=== PATIENT | female | born 1950 | race Caucasian/White ===

== ENCOUNTER → 2017-10-26 09:20 | Outpatient (CLI) | payer MEDICARE, OTHER, SELFPAY ==
--- NOTE | 2017-10-26 09:40 | BI_ITS ---
MAMMOGRAPHY - BILATERAL SCREENING REASON FOR EXAM: Female, 67 years old. Routine annual screening examination. PERTINENT HISTORY: Non-contributory. TECHNIQUE: Digital bilateral breast patricio (3D mammographic acquisition) in the CC and MLO projections. 2-D mediolateral oblique (MLO) and craniocaudad (CC) views of both breasts were obtained. CAD: Full Field Digital Mammography with Computer Added Detection was performed. COMPARISON: Comparison is made with prior study dated July 26, 2016 and December 02, 2014. FINDINGS: Breast Composition: There are scattered areas of fibroglandular density. There are no dominant masses or suspicious calcifications. No other significant abnormalities are identified. There has been no significant change since the prior study. BI/SCREENING MAMM (CAD), BILAT IMPRESSION: Stable bilateral screening mammogram. Yearly follow-up mammogram recommended. (A) ASSESSMENT CATEGORY: BIRADS Category 1: Negative. A letter regarding these results will be sent to the patient by the facility within 30 days. Approximately 10% of breast cancers are not detected by mammography. A normal mammogram should not delay biopsy of a clinically suspicious abnormality. [id number] Electronically Signed: Derrick Parmar MD at 8:49 EDT Tel [phone], Service support ,
== END ==
PROVIDERS: Family Provider Internal Medicine; PCP Internal Medicine; Visit Provider Internal Medicine
DX: Z12.31 Encounter for screening mammogram for malignant neoplasm of breast (principal)
CPT/HCPCS: 77063; 77067

== ENCOUNTER → 2018-10-31 15:08 | Outpatient (CLI) | payer MEDICARE, SELFPAY ==
--- NOTE | 2018-10-31 15:16 | BI_ITS ---
MAMMOGRAPHY - BILATERAL SCREENING REASON FOR EXAM: Female, 68 years old. Routine annual screening examination. PERTINENT HISTORY: Non-contributory. TECHNIQUE: Digital bilateral breast yolanda (3D mammographic acquisition) in the CC and MLO projections. 2-D mediolateral oblique (MLO) and craniocaudad (CC) views of both breasts were obtained. CAD: Full Field Digital Mammography with Computer Added Detection was performed. COMPARISON: Comparison is made with prior study dated October 26, 2017 and July 26, 2016. FINDINGS: Breast Composition: There are scattered areas of fibroglandular density. There are no dominant masses or suspicious calcifications. No other significant abnormalities are identified. There has been no significant change since the prior study. BI/SCREEN MAMM (CAD) W/YOLANDA BILAT IMPRESSION: Stable bilateral screening mammogram. Yearly follow-up mammogram recommended. (A) ASSESSMENT CATEGORY: BIRADS Category 1: Negative. A letter regarding these results will be sent to the patient by the facility within 30 days. Approximately 10% of breast cancers are not detected by mammography. A normal mammogram should not delay biopsy of a clinically suspicious abnormality. [id number] Electronically Signed: Derrick Parmar, at 8:12 EDT , Service support ,
== END ==
PROVIDERS: Family Provider Internal Medicine; PCP Internal Medicine; Referring Provider Internal Medicine; Visit Provider Internal Medicine
DX: Z12.31 Encounter for screening mammogram for malignant neoplasm of breast (principal)
CPT/HCPCS: 77063; 77067

== ENCOUNTER → 2018-12-11 | Outpatient (CLI) | payer MEDICARE, SELFPAY ==
--- NOTE | 2018-12-11 09:02 | BD_ITS ---
STUDY: DUAL ENERGY X-RAY ABSORPTIOMETRY / DXA REASON FOR EXAM: Female, 68 years old. Early menopause. No loss of height. TECHNIQUE: Bone Mineral Density (BMD) measurements of lumbar spine and bilateral hips were obtained. COMPARISON: Comparison is made with prior examination dated July 26, 2016. FINDINGS: Lumbar Spine (L1-L4): g/cm2 (1.278) / T-score (0.8) / Z-score (2.4) Findings are suggestive of normal bone density with a low fracture risk. Left Femur Total: g/cm2 (1.039) / T-score (0.2) / Z-score (1.5) Left Femoral Neck: g/cm2 (0.894) / T-score (-1.0) / Z-score (0.5) Right Femur Total: g/cm2 (1.094) / T-score (0.7) / Z-score (2.0) Right Femoral Neck: g/cm2 (1.016) / T-score (-0.2) / Z-score (1.4) The T-Scores on the most recent prior examination were: Lumbar Spine (L1-L4): There has been worsening of bone density since the previous examination. Left Femur Total: which represents a worsening of 4.4%. Right Femur Total: which represents a worsening of 1.5%. BD/Dexa Bone Density Study IMPRESSION: The patient is considered normal as outlined below according to World [employer] Organization (WHO) criteria with a low fracture risk. There has been worsening of bone density since the previous examination. Reference Information: The T-score is the number of standard deviations above or below the standard which is normal for young adults at their peak bone mineral density. The World Health Organization (WHO) interprets the T-scores as follows: Above -1 Normal bone density Between -1 and -2.5 Osteopenia Equal to / or below -2.5 Osteoporosis As a practical clinical guideline, osteopenia may be graded as follows: Mild -1 through -1.5 Moderate -1.6 through -2.0 Severe -2.1 through -2.4 The Z-score is the number of standard deviations above or below age-matched controls. A Z-score of less than -1.5 would be considered abnormal. References: 1. NIH Osteoporosis and Related Bone Diseases http://www.osteo.org 2. International Society for Clinical Densitometry http://www.iscd.org 3. National Osteoporosis Foundation http://www.nof.org Electronically Signed: Derrick Parmar, at 10:39 EDT , Service support ,
== END | disposition home or self-care (01) ==
LOC: OPBD 08:58
PROVIDERS: Family Provider Internal Medicine; PCP Internal Medicine; Referring Provider Internal Medicine; Visit Provider Internal Medicine
DX: Z78.0 Asymptomatic menopausal state (principal)
CPT/HCPCS: 77080

== ENCOUNTER → 2019-04-29 08:05 | Outpatient (CLI) | payer MEDICARE, SELFPAY ==
--- NOTE | 2019-04-29 08:08 | CDU_ITS ---
Reason For Study: Hollenhorst plaque rt eye Rt. Velocities/BP Lt. Velocities/BP Prox CCA 57.9/12.6 cm/sec. Prox CCA 64.8/14.2 cm/sec. Mid CCA 66.4/15.4 cm/sec. Mid CCA 48.2/15.1 cm/sec. Dist CCA 47.5/16.3 cm/sec. Dist CCA 42.1/15.1 cm/sec. Prox ICA 52.2/18.2 cm/sec. Prox ICA 89.1/30.5 cm/sec. Mid ICA 79.4/32.2 cm/sec. Mid ICA 78.3/28.9 cm/sec. Dist ICA 73.9/24.5 cm/sec. Dist ICA 117.4/33.4 cm/sec. Rt. ICA/CCA = 1.4. Lt. ICA/CCA = 2.4. Prox ECA 64.5/8.8 cm/sec. Prox ECA 64.8/7.2 cm/sec. Rt. Vert. 39.8/11.2 cm/sec. Lt. Vert. 80.2/23.7 cm/sec. Right Extracranial There is homogeneous, smooth atherosclerotic plaque noted in the right common carotid artery. There is heterogeneous, irregular atherosclerotic plaque noted in the right internal carotid artery. There is intimal thickening but no significant atherosclerotic plaque noted in the right external carotid artery. Antegrade flow is noted in the right vertebral artery. Left Extracranial There is homogeneous, smooth atherosclerotic plaque noted in the left common carotid artery. There is homogeneous, smooth atherosclerotic plaque noted in the left internal carotid artery. There is intimal thickening but no significant atherosclerotic plaque noted in the left external carotid artery. Antegrade flow is noted in the left vertebral artery. Procedure Carotid Duplex [id number]. Exam performed in department. Interpretation Summary Mild (<50%) stenosis right extracranial internal carotid. Mild (<50%) stenosis left extracranial internal carotid. Flow within the vertebral arteries is antegrade bilaterally. Ordering Physician: Aaron Summers Referring Physician: Marisela Minaya M.D. Performed By: Josseline Green RVT
== END ==
PROVIDERS: PCP Internal Medicine; Referring Provider Ophthalmology; Visit Provider Ophthalmology
DX: H34.211 Partial retinal artery occlusion, right eye (principal)
CPT/HCPCS: 93880

== ENCOUNTER → 2020-01-21 15:23 | Outpatient (CLI) | payer MEDICARE, SELFPAY ==
--- NOTE | 2020-01-21 15:26 | BI_ITS ---
MAMMOGRAPHY - BILATERAL SCREENING REASON FOR EXAM: Female, 69 years old. Routine annual screening examination. PERTINENT HISTORY: Non-contributory. TECHNIQUE: Digital bilateral breast yolanda (3D mammographic acquisition) in the CC and MLO projections. 2-D mediolateral oblique (MLO) and craniocaudad (CC) views of both breasts were obtained. CAD: Full Field Digital Mammography with Computer Added Detection was performed. COMPARISON: Comparison is made with prior study dated 10/31/2018 and 10/26/2017. FINDINGS: Breast Composition: There are scattered areas of fibroglandular density. There are no dominant masses or suspicious calcifications. No other significant abnormalities are identified. There has been no significant change since the prior study. BI/SCREEN MAMM (CAD) W/YOLANDA BILAT IMPRESSION: Stable bilateral screening mammogram. Yearly follow-up mammogram recommended. (A) ASSESSMENT CATEGORY: BIRADS Category 1: Negative. A letter regarding these results will be sent to the patient by the facility within 30 days. Approximately 10% of breast cancers are not detected by mammography. A normal mammogram should not delay biopsy of a clinically suspicious abnormality. [id number] Electronically Signed: Derrick Parmar, at 8:25 EST , Service support ,
== END ==
PROVIDERS: PCP Internal Medicine; Referring Provider Internal Medicine; Visit Provider Internal Medicine
DX: Z12.31 Encounter for screening mammogram for malignant neoplasm of breast (principal); Z78.0 Asymptomatic menopausal state
CPT/HCPCS: 77063; 77067

== ENCOUNTER → 2020-06-23 10:48 | Outpatient (CLI) | payer MEDICARE, SELFPAY ==
--- NOTE | 2020-06-23 11:01 | ECHOCS_ITS ---
Reason For Study: CHEST PRESSURE Procedure This was a 2D Doppler, Color Flow transthoracic echocardiogram. The study was technically difficult. Contrast injection was performed. Exam performed in department. Left Ventricle Normal LV size. Severe global left ventricular systolic dysfunction. The estimated ejection fraction is 25 %. Right Ventricle Normal RV size. Normal systolic function. Atria The left atrium is mildly enlarged. Normal right atrium. No doppler evidence for ASD. Mitral Valve There is moderate mitral annular calcification. Extension the mitral annular calcification on the base of the posterior mitral valve leaflet. Mild (1+) mitral valve insufficiency. Tricuspid Valve Normal tricuspid valve. Trivial tricuspid valve insufficiency. Right ventricular systolic pressure estimated to be 44 mmHg. Aortic Valve Trisinus/trileaflet aortic valve. Mild focal aortic valve calcification. Trivial aortic valve insufficiency. Pulmonic Valve The pulmonic valve is not well visualized. Great Vessels Normal sized aortic root. Pericardium/Pleural Trivial pericardial effusion. There are no echocardiographic indications of cardiac tamponade. Medication Diluted definity 4ml given slow IV push to enhance endocardial definition. MMode/2D Measurements & Calculations LVIDd: 5.4 cm IVSd: 0.92 cm Ao root diam: 3.2 cm LVIDs: 4.4 cm LVPWd: 0.98 cm RVDd: 3.5 cm FS: 19.8 % LAV(MOD-bp): 54.1 ml LVAd ap4: 32.0 cm2 SV(MOD-sp4): 26.2 ml LAV(MOD-bp) Indexed: 29.6 ml/m2 LVLd ap4: 7.4 cm LAV(MOD-sp2): 62.5 ml EDV(MOD-sp4): 114.1 ml LAV(MOD-sp4): 43.7 ml EDV(sp4-el): 117.9 ml LVAs ap4: 27.8 cm2 LVLs ap4: 7.1 cm ESV(MOD-sp4): 87.9 ml ESV(sp4-el): 92.0 ml EF(MOD-sp4): 23.0 % EF(sp4-el): 21.9 % SV(sp4-el): 25.8 ml LA A4 area: 16.2 cm2 LA dimension(2D): 4.0 cm RA A4 area: 12.3 cm2 Time Measurements MV dec time: 0.17 sec Doppler Measurements & Calculations MV E max hardik: 134.4 cm/sec Lat Peak E' Hardik: 8.1 cm/sec Med Peak E' Hardik: 4.6 cm/sec MV A max hardik: 80.8 cm/sec E/E' lat: 16.6 E/E' med: 29.0 MV E/A: 1.7 Ao V2 max: 146.5 cm/sec AI max hardik: 394.2 cm/sec LV V1 max: 94.2 cm/sec Ao max P.6 mmHg AI max P.2 mmHg LV V1 max P.5 mmHg AI dec slope: 291.1 cm/sec2 AI P1/2t: 396.7 msec PA V2 max: 106.8 cm/sec TR max hardik: 320.7 cm/sec TR max P.1 mmHg ECHO/Echo Complete W/ Contrast Interpretation Summary The study was technically difficult. Contrast injection was performed. Severe global left ventricular systolic dysfunction. The estimated ejection fraction is 25 %. The left atrium is mildly enlarged. There is moderate mitral annular calcification. Extension the mitral annular calcification on the base of the posterior mitral valve leaflet. Mild (1+) mitral valve insufficiency. Trivial tricuspid valve insufficiency. Mild focal aortic valve calcification. Trivial aortic valve insufficiency. Trivial pericardial effusion. There are no echocardiographic indications of cardiac tamponade. Right ventricular systolic pressure estimated to be 44 mmHg. Transmitral diastolic flow velocities suggest diastolic dysfunction (pseudonorm al pattern). Ordering Physician: Marisela Minaya Referring Physician: Marisela Minaya Performed By: Suellen Minor RDCS
--- NOTE | 2020-06-23 12:47 | STRESSREP ---
Stress Test Report Date: 06-23-2020 Procedure: Pharmacologic stress nuclear imaging study Indications: Chest pain; shortness of breath/dyspnea on exertion Consent: Per the patient Procedure: The patient underwent pharmacologic (Regadenoson 0.4mg ) evaluation with a peak heart rate of 90 beats per minute (59%predicted maximal heart rate) and a peak blood pressure of 140/64 mmHg. The baseline ECG demonstrated sinus rhythm; bundle branch block. The peak pharmacologic ECG demonstrated no obvious ECG changes. There was a rare PAC/PVC in recovery. There was no complaint of chest discomfort during pharmacologic infusion or recovery. The examination was discontinued secondary to completion of protocol. Impression: 1. Pharmacologic (Regadenoson) evaluation 2. Peak pharmacologic ECG with no obvious ECG changes. 3. There were no cardiac dysrhythmias pretest, during pharmacologic infusion, or recovery. 4. Nuclear images pending Myocardial perfusion imaging study: Technique: The patient was injected with 14.6 millicuries of technetium 99m Cardiolite and subsequently rest SPECT Cardiolite nuclear imaging was obtained in the horizontal long, vertical long, and short axis views. The patient underwent pharmacologic (Regadenoson) evaluation with a peak heart rate of 90 beats per minute (59% percent predicted maximal heart rate) and a peak blood pressure of 140/64 mmHg. The patient was injected with 44.6 millicuries of technetium 99m Cardiolite and subsequently stress SPECT Cardiolite nuclear imaging was obtained in the horizontal long, vertical long, and short axis views. A gated Cardiolite study at peak stress was obtained. Interpretation: Rest and stress SPECT Cardiolite nuclear imaging status post realignment, normalization, and attenuation correction demonstrate the appearance of diminished myocardial perfusion/tracer uptake in portions of the distal anterior, distal anteroseptal, anteroapical, and septal apical segments which appear to be somewhat more prominent following stress of the posterior rest. There is diminished end systolic thickening and brightening. The gated Cardiolite study demonstrates diminished myocardial thickening and inward wall motion. The reported LVEF is 37%. Impression: 1. Rest and stress SPECT her nuclear imaging demonstrate myocardial perfusion changes potentially compatible with an area of previous myocardial injury/infarction with post-rest myocardial perfusion changes suggestive of juan david-infarct related myocardial ischemia involving portions of the distal anterior, distal anteroseptal, anteroapical, and septal apical segments. 2. The gated Cardiolite study reports an LVEF of 37%. This note was generated with [employer] software. It may contain incorrect words, spelling, and punctuation that were not noted in checking the note before signing.
== END ==
PROVIDERS: PCP Internal Medicine; Referring Provider Internal Medicine; Visit Provider Internal Medicine
DX: R07.89 Other chest pain (principal)
CPT/HCPCS: 78452; 93017; 93306; A9500; Q9957; A4216; C8929; J2785

== ENCOUNTER → 2020-08-20 12:36 | Outpatient (CLI) | payer MEDICARE, SELFPAY ==
[2020-08-20 11:31] VITALS: BMI 35.9
--- NOTE | 2020-08-20 12:40 | RAD_ITS ---
STUDY: X-RAY CHEST REASON FOR EXAM: Female, 70 years old. Coronary artery disease. TECHNIQUE: PA and lateral views of the chest. COMPARISON: None. FINDINGS: The lungs are clear and expanded. There is no demonstrated pleural abnormality. Normal size heart. Normal mediastinum and mahad. Normal visualized pulmonary arteries. Normal visualized aortic arch and descending thoracic aorta. There are diffuse degenerative changes of the visualized thoracic spine. Prior rotator cuff surgery on the right side. There is no demonstrated abnormality of the visualized soft tissue structures of the upper abdomen. RAD/Chest PA and Lateral IMPRESSION: No acute abnormality is seen. Electronically Signed: Derrick Parmar MD at 15:12 EDT , Service support ,
[2020-08-20 13:39] LABS: Absolute Lymphocyte Count 1.39 X10^3/uL (0.83-4.51); Absolute Neutrophil Count 5.8 X10^3/uL (2.0-7.7); Basophil# 0.04 X10^3/uL; Basophil% 0.5 % (0-1); Eosinophil# 0.16 X10^3/uL; Hemoglobin 13.2 g/dL (12.0-15.0); Lymphocyte # 1.39 X10^3/ul (0.83-4.51); Lymphocyte % 17.7 % (19-41); Mean Corp Hgb Conc 33.8 g/dL (32-36); Mean Corpuscular Hgb 29.4 pg (27.0-32.0); Mean Corpuscular Volume 86.9 fL (81-99); Mean Platelet Vol. 12.6 fl (6.2-12.0); Monocyte# 0.45 X10^3/uL; Monocyte% 5.7 % (0-10); NRBC Flagged by Analyzer 0 % (0-5); Neutrophil # 5.77 X10^3/uL (2.7-7.7); Neutrophil % 73.6 % (47-70); Platelet Count 174 K/mm3 (150-450); RBC Distribution Width CV 12.9 % (11.6-14.6); RBC Distribution Width SD 40.9 fl (35.1-43.9); Red Blood Count 4.49 M/mm3 (4.2-5.4); White Blood Count 7.9 K/mm3 (4.4-11.0)
[2020-08-20 13:53] LABS: International Normalized Ratio 1.1; Partial Thromboplast Time 31.2 Seconds (24.1-36.2); Prothrombin Time (Protime)PT. 13.2 SECONDS (11.7-14.9)
[2020-08-20 14:01] LABS: Anion Gap 4 (5-15); BUN 13 mg/dL (7-18); BUN/Creat Ratio 14.9 RATIO (10-20); Calcium,Total 9.1 mg/dL (8.5-10.1); Chloride 104 mmol/L (98-107); Creatinine, Serum 0.88 mg/dL (0.55-1.02); EST Glomerular Filtration Rate 68 mL/min (>60); Est Glom Filt Rate - Afr Amer 83 mL/min (>60); Glucose 288 mg/dL (74-106); Potassium 3.9 mmol/L (3.5-5.1); Sodium Level 136 mmol/L (136-145)
[2020-08-20 14:02] LABS: BNP,B-Type NATRIURETIC PEPTIDE 159.1 pg/mL (0-100)
== END ==
PROVIDERS: PCP Internal Medicine; Referring Provider Internal Medicine Cardiovascular Disease; Visit Provider Internal Medicine Cardiovascular Disease
DX: I42.9 Cardiomyopathy, unspecified (principal); E78.00 Pure hypercholesterolemia, unspecified; I10 Essential (primary) hypertension; I44.7 Left bundle-branch block, unspecified; R93.1 Abnormal findings on diagnostic imaging of heart and coronary circulation; R94.39 Abnormal result of other cardiovascular function study
CPT/HCPCS: 36415; 71046; 80048; 83880; 85025; 85610; 85730

== ENCOUNTER 2020-09-15 12:40 | Inpatient (IN) | payer MEDICARE, SELFPAY ==
[2020-08-20 11:31] VITALS: BMI 35.9
--- NOTE | 2020-09-12 10:59 | HP.PCM_ITS ---
History and Physical Date of Admission: 09/15/20 [facility] [address] [place] [address] [phone] OFFICE VISITDate of Service: 08/20/20 MR#:[id number]:[id number]: KANA ORTIZ #:[id number] Provider:Dr. Colt Zimmerman, VASYLge/Sex: 70/F Loca tion:BMS.BEATRICEtatus:Signed HPI HPI History of Present Illness Surgical H&P: Yes Details: This is a 70-year-old white female who presents today for outpatient cardiovascular consultation based upon concerns of shortness of breath/dyspnea, and abnormal ECG with a left bundle branch block pattern, and abnormal transthoracic echocardiogram appearing compatible with an underlying cardiomyopathy, and an abnormal pharmacologic stress nuclear imaging study superimposed upon a history of hyperlipidemia, hypertension, and diabetes mellitus. She notes that in January 2020 she started sensing concerns of shortness of breath and dyspnea. Over time this has become somewhat more prominent for her affecting her at times at rest, with exertion, and at night leading her to sleep propped up . She has not necessarily had ongoing chest discomfort. There is been no obvious palpitations, near-syncope or syncope. She does states she has had waxing and waning peripheral pitting edema. She has undergone noninvasive evaluation. Today she had an ECG which demonstrated sinus rhythm with a left bundle branch block pattern. She had a transthoracic echocardiogram performed and a pharmacologic stress nuclear imaging study performed. The results are as noted below. She states she has been placed on medical management. Her medicines have been adjusted somewhat over time. She has been referred for further cardiovascular evaluation. Intake Vital Signs 08/20/20 11:31 Height 5 ft Weight: 184 lb 5 oz BMI 35.9 BP 154/80 H Blood Pressure Location Lt brachial Position Sitting Respiration 18 Pulse 80 Pulse Source Auscultation Intake Visit Reasons: Abn stress/Echo/Ref. [employer] Leveler Required: No Accompanied by: Self Allergies No Known Allergies Allergy (Verified 08/20/20 11:31) Medications atenolol 25 mg tablet 25 mg PO DAILY 07/31/20 [History Confirmed 08/20/20] glimepiride 4 mg tablet 4 mg PO BID tab 07/31/20 [History Confirmed 08/20/20] levothyroxine 25 mcg tablet 25 mcg PO DAILY 07/31/20 [History Confirmed 08/20/20] metformin 1,000 mg tablet 1,000 mg PO DAILY 07/31/20 [History Confirmed 08/20/20] nitroglycerin 0.1 mg/hr transdermal 24 hour patch 1 patch TRANSDERMAL Q24H 07/31/20 [History Confirmed 08/20/20] pravastatin 80 mg tablet 80 mg PO QHS 07/31/20 [History Confirmed 08/20/20] aspirin 81 mg chewable tablet 81 mg PO DAILY #1 tab 08/20/20 [Rx Confirmed ] carvedilol 3.125 mg tablet 3.125 mg PO BID #60 tab 08/20/20 [Rx Confirmed 08/20/20] furosemide 20 mg tablet 20 mg PO DAILY #30 tab 08/20/20 [Rx Confirmed 08/20/20] lisinopril 10 mg tablet 10 mg PO BID tab 08/20/20 [History Confirmed 08/20/20] potassium chloride 20 mEq tablet,extended release 20 meq PO DAILY #30 tab 08/20/20 [Rx Confirmed 08/20/20] [facility] Medical History (Updated 08/20/20 @ 12:[address] Colt Zimmerman MD) Abnormal echocardiogram Abnormal stress test Cardiomyopathy Decreased cardiac ejection fraction Dyspnea Essential hypertension GERD (gastroesophageal reflux disease) Hypothyroidism LBBB (left bundle branch block) Pure hypercholesterolemia Type 2 diabetes mellitus Surgical History H/O total hysterectomy with bilateral salpingo-oophorectomy (BSO) History of cholecystectomy History of repair of right rotator cuff Family History Mother CVA (cerebral vascular accident), Onset Age: 67 Brother Myocardial infarction, Onset Age: 50 Father Cancer, Onset Age: 57 Social History Smoking Status: Former smoker alcohol intake: current details: occasional substance use type: does not use caffeine: Yes Type: carbonated beverages Number of servings: 1 and coffee Number of servings: 4 ROS Const Const: Positive for fatigue (tired alot); Negative for weakness, frequent falls, excessive sweating, weight gain or weight loss Eyes Eyes: Negative for transient loss of vision, blurry vision or change in vision ENT ENT: Positive for balance problems (slight); Negative for dizziness Cardio Chest Pain: No Palpitations: No Edema: None Muscle aches with walking: None Resp Respiratory: Positive for SOB with activity (new; started in January) and Cough (dry); Negative for SOB at rest GI GI: Negative vomiting or vomiting blood/hematemesis : Negative for hematuria Musc Musc: Positive for joint pain (bilat knees, rt hip) and balance problems (slight); Negative for muscle aches/ myalgia or muscle weakness Skin Skin: Negative non-healing lesions or rash Neuro Neuro: Positive for lightheadedness (random) and near syncope; Negative for dizziness, orthostatic symptoms, frequent falls, weakness or blurry vision Baljeet Hematologic/Lymphatic: Negative for easy bleeding Endo Endo: Positive for fatigue (tired alot); Negative for excessive sweating Psych Psych: Negative for anxiety or depression Allergy Allergy/Immunology: Negative for hives and Negative for rash Cardiology Exam Const Appearance: cooperative, healthy appearing, comfortable, no acute distress, well developed and well groomed Nutritional Appearance: obese Orientation: alert, awake and oriented x3 Head Head: normal to inspection and normocephalic Ears: hearing grossly normal bilaterally Nose: external nose normal Face and Sinus: face symmetric Eyes Eyelids: eyelids normal Conjunctivae: conjunctivae normal Pupils: PERRL EOM: EOM intact bilaterally Neck Neck: normal visual inspection and full ROM Carotids: normal carotid upstroke Chest Chest inspection: normal inspection of the chest, symmetric chest movement and normal respiratory effort Auscultation: Bilateral: Clear to Auscultation Cardio Palpation: normal PMI Rate: regular rate Rhythm: regular rhythm Heart sounds: S1 normal and paradoxically split S2 GI GI: normal to inspection, soft, bowel sounds present and obese Neuro General: patient alert, patient awake, patient oriented x3 and moves all extremities Skin Skin: no rashes or lesions noted Extremities Pulses: Normal: Right Radial Pulse and Left Radial Pulse Lower Extremity Edema: None: Bilateral Psych Psychological: normal affect Assessment and Plan Assessment and Plan (1) Abnormal echocardiogram: Status: Acute Orders: Orders: 12 Lead EKG performed by [facility] Today Left Heart Cath/COR/LV Percut Today Basic Metabolic Profile (BMP) Today Partial Thromboplast Time Today Prothrombin Time w/INR Today CBC W/Diff, Automated Today Chest PA and Lateral Today Plan - Dr. Colt Zimmerman MD: The patient does have an abnormal transthoracic echocardiogram appearing compatible with an underlying cardiomyopathy. At the present time she will continue medical therapy with adjustment of her medications. She will initiate carvedilol therapy in place of her atenolol therapy. She will be placed on furosemide with potassium supplement. She will increase her JESSICA inhibitor therapy/lisinopril to twice daily. Based upon her symptoms and other objective findings it was felt reasonable that she undergo further evaluation with diagnostic cardiac catheterization to evaluate for any CAD contributing to these findings. The procedure and risk were discussed with her. She was agreeable to this approach. (2) Abnormal stress test: Status: Acute Orders: Orders: 12 Lead EKG performed by [facility] Today Left Heart Cath/COR/LV Percut Today Basic Metabolic Profile (BMP) Today Partial Thromboplast Time Today Prothrombin Time w/INR Today CBC W/Diff, Automated Today Chest PA and Lateral Today Plan - Dr. Colt Zimmerman MD: She does have an abnormal pharmacologic stress nuclear imaging study. It has raised concerns about possible previous AR with juan david-AR related myocardial ischemia. It also noted diminished LVEF. At the present time she will continue medical therapy as noted above with the addition of aspirin 81 mg p.o. daily. She will proceed with further evaluation with diagnostic cardiac catheterization. (3) LBBB (left bundle branch block): Status: Acute Orders: Orders: Left Heart Cath/COR/LV Percut Today Basic Metabolic Profile (BMP) Today Partial Thromboplast Time Today Prothrombin Time w/INR Today CBC W/Diff, Automated Today Chest PA and Lateral Today Plan - Dr. Colt Zimmerman MD: She does have a left bundle branch block. This could be compatible with an underlying cardiomyopathy. However could also be compatible with a history of underlying CAD, etc. Thus at the present time she will continue medical management and follow-up as noted above. (4) Cardiomyopathy: Status: Acute Orders: Orders: Left Heart Cath/COR/LV Percut Today Basic Metabolic Profile (BMP) Today Partial Thromboplast Time Today Prothrombin Time w/INR Today CBC W/Diff, Automated Today Chest PA and Lateral Today BNP,B-Type NATRIURETIC PEPTIDE Today Plan - Dr. Colt Zimmerman MD: Again she has findings compatible with an underlying cardiomyopathy. It is unclear at this time whether this is CAD related or non-CAD related. She does not recall any definitive illness prior to the development of her symptoms. She does have cardiovascular risks which do include diabetes mellitus. Thus she will continue medical management and further evaluation as noted. (5) Pure hypercholesterolemia: Status: Acute Orders: Orders: 12 Lead EKG performed by [facility] Today Left Heart Cath/COR/LV Percut Today Basic Metabolic Profile (BMP) Today Partial Thromboplast Time Today Prothrombin Time w/INR Today CBC W/Diff, Automated Today Chest PA and Lateral Today Plan - Dr. Colt Zimmerman MD: She will continue lipid-lowering therapy. (6) Essential hypertension: Status: Acute Orders: Orders: 12 Lead EKG performed by [facility] Today Left Heart Cath/COR/LV Percut Today Basic Metabolic Profile (BMP) Today Partial Thromboplast Time Today Prothrombin Time w/INR Today CBC W/Diff, Automated Today Chest PA and Lateral Today Plan - Dr. Colt Zimmerman MD: She will need to monitor her blood pressure with adjustment of medications. (7) Dyspnea: Status: Acute Plan - Dr. Colt Zimmerman MD: Again she has shortness of breath/dyspnea which has occurred both at rest and with exertion. This may be secondary to her aforementioned findings superimposed upon concerns of her weight. At the present time she will continue medical adjustment and further evaluation as noted. Plan Details Other Medications: New: carvedilol (Coreg) must administer with a meal/food 3.125 mg PO BID 60 tabs 3RF furosemide 20 mg PO DAILY 30 tabs 3RF potassium chloride ER 20 mEq PO DAILY 30 tabs 3RF aspirin 81 mg PO DAILY 1 TAB 0RF On Hold: atenolol Hold Comment: Order Changed 25 mg PO DAILY Additional Comments: [place] with her and she was agreeable to this approach. Thank you for allowing me to participate in the care of your patient. Please don't hesitate to call if any issues arise. This note was generated using a voice recognition system and there may be incorrect words, spelling or punctuation that were not noted when reviewing the office note prior to saving. Follow Up: 3 Months (PFM) COVID (Procedure Consent) Procedure Criteria Procedure Criteria: Yes Elective The surgeon/proceduralist and patient have discussed in detail the risk of exposure to and/or potential harm posed by the COVID-19 virus with having a surgery/procedure at this time versus the risk of delaying the surgery/procedure. It is not possible to know either the risk of delaying the surgery or procedure or chance of getting an infection with perfect accuracy, but a joint decision was made between the patient and the surgeon/proceduralist to proceed at this time with the scheduled surgery/procedure as indicated on the consent form. Coding Level of Care Code Off vis,new,level 5 Diagnoses Abnormal echocardiogram R93.1 Abnormal stress test R94.39 LBBB (left bundle branch block) I44.7 Cardiomyopathy I42.9 Pure hypercholesterolemia E78.00 Essential hypertension I10 Dyspnea R06.00 Coding Level of Care Code Off vis,new,level 5 Diagnoses Abnormal echocardiogram R93.1 Abnormal stress test R94.39 LBBB (left bundle branch block) I44.7 Cardiomyopathy I42.9 Pure hypercholesterolemia E78.00 Essential hypertension I10 Dyspnea R06.00 Supplemental Info Supplemental Information Transthoracic echocardiogram: 06-23-2020 Interpretation Summary The study was technically difficult. Contrast injection was performed. Severe global left ventricular systolic dysfunction. The estimated ejection fraction is 25 %. The left atrium is mildly enlarged. There is moderate mitral annular calcification. Extension the mitral annular calcification on the base of the posterior mitral valve leaflet. Mild (1+) mitral valve insufficiency. Trivial tricuspid valve insufficiency. Mild focal aortic valve calcification. Trivial aortic valve insufficiency. Trivial pericardial effusion. There are no echocardiographic indications of cardiac tamponade. Right ventricular systolic pressure estimated to be 44 mmHg. Transmitral diastolic flow velocities suggest diastolic dysfunction (pseudonormal pattern). Stress Test Report Date: 06-23-2020 Procedure: Pharmacologic stress nuclear imaging study Indications: Chest pain; shortness of breath/dyspnea on exertion Consent: Per the patient Procedure: The patient underwent pharmacologic (Regadenoson 0.4mg ) evaluation with a peak heart rate of 90 beats per minute (59%predicted maximal heart rate) and a peak blood pressure of 140/64 mmHg. The baseline ECG demonstrated sinus rhythm; bundle branch block. The peak pharmacologic ECG demonstrated no obvious ECG changes. There was a rare PAC/PVC in recovery. There was no complaint of chest discomfort during pharmacologic infusion or recovery. The examination was discontinued secondary to completion of protocol. Impression: 1. Pharmacologic (Regadenoson) evaluation 2. Peak pharmacologic ECG with no obvious ECG changes. 3. There were no cardiac dysrhythmias pretest, during pharmacologic infusion, or recovery. 4. Nuclear images pending Myocardial perfusion imaging study: Technique: The patient was injected with 14.6 millicuries of technetium 99m Cardiolite and subsequently rest SPECT Cardiolite nuclear imaging was obtained in the horizontal long, vertical long, and short axis views. The patient underwent pharmacologic (Regadenoson) evaluation with a peak heart rate of 90 beats per minute (59% percent predicted maximal heart rate) and a peak blood pressure of 140/64 mmHg. The patient was injected with 44.6 millicuries of technetium 99m Cardiolite and subsequently stress SPECT Cardiolite nuclear imaging was obtained in the horizontal long, vertical long, and short axis views. A gated Cardiolite study at peak stress was obtained. Interpretation: Rest and stress SPECT Cardiolite nuclear imaging status post realignment, normalization, and attenuation correction demonstrate the appearance of diminished myocardial perfusion/tracer uptake in portions of the distal anterior, distal anteroseptal, anteroapical, and septal apical segments which appear to be somewhat more prominent following stress of the posterior rest. There is diminished end systolic thickening and brightening. The gated Cardiolite study demonstrates diminished myocardial thickening and inward wall motion. The reported LVEF is 37%. Impression: 1. Rest and stress SPECT her nuclear imaging demonstrate myocardial perfusion changes potentially compatible with an area of previous myocardial injury/infarction with post-rest myocardial perfusion changes suggestive of juan david-infarct related myocardial ischemia involving portions of the distal anterior, distal anteroseptal, anteroapical, and septal apical segments. 2. The gated Cardiolite study reports an LVEF of 37%. Labs: No Data to Display Diagnostics: Electrocardiogram Echocardiogram Stress Test NM Stress Test Pulmonary: No Data to Display 08/20/20 1244<Electronically signed by Colt Zimmerman MD>Date Colt Zimmerman MD Cosigner Signature:Date (if applicable) CC: Dr. Marisela Marimar, DO ~ I have re-examined the patient. There are no clinical changes since date of exam.
[2020-09-14 08:02] VITALS: BMI 35.9
[2020-09-15] VITALS (36 sets, daily range): BP systolic 104–213; BP diastolic 50–118; PULSE 63–96; RESP 12–30; TEMP 36–36.6; O2SAT 85–100; BMI 37.7
--- NOTE | 2020-09-15 10:29 | PCI.CARDCATH ---
PCI Cardiac Cath Report PCI Report: Procedure performed; 1. Successful percutaneous core intervention/PCI of diffuse mid LAD 80% with predilatation and placement of drug-eluting stent Synergy 2.5 x 20 mm Postdilated with 2.5 x 15 mm NC Emerge balloon and achievement of excellent result With reduction of stenosis from 80% to 0% in the mid LAD and maintenance of JENARO-3 flow. 2. Placement of TR band to right radial artery arteriotomy site. Preprocedure diagnosis; This is a 70-year-old patient she came for outpatient cardiovascular consultation and she had symptoms of shortness of breath and abnormal ECG with a left bundle branch block and abnormal transthoracic echocardiogram compatible his underlying cardiomyopathy and abnormal pharmacological stress nuclear imaging study with history of hyperlipidemia hypertension and diabetes mellitus she had symptoms mainly shortness of breath and dyspnea on exertion. The ECG demonstrated sinus rhythm with left bundle branch block and the transthoracic echocardiogram and pharmacological stress nuclear images did revealed severe LV systolic dysfunction. And she had abnormal nuclear stress test. The ejection fraction has been around 25%. Patient underwent cardiac catheterization today by her primary snow removal supervisor Dr. Zimmerman angiographic films reviewed and discussed in detail She has a lesion in the mid LAD which is diffuse atherosclerosis of around 80%. Rest of the coronary anatomy including the left and right showed nonobstructive atherosclerosis and the ventriculogram showed severe LV systolic dysfunction with segmental wall motion abnormality anterior and apical. Consent; Risk and benefit of procedure explained in detail to the patient elected to proceed informed consent obtained Interventional equipment and plan; 1. 6 Kyrgyz EBU guide catheter 2. 0.14 run-through guidewire 180 cm 3. 2 mm x 50 mm image PTCA dilatation balloon 4. 2.5 x 20 mm Synergy drug-eluting stent 5. 2.5 x 50 mm NC Emerge balloon Monorail system Procedure in detail; From the right radial artery approach will proceed with a 6 Kyrgyz EBU guide catheter advanced under fluoroscopic guidance and cannulated the left main coronary artery Then will proceed with the guidewire which is a 0.14 run-through guidewire across the lesion in the mid LAD place a wire distal to the lesion, and then we proceed with balloon dilatation using 2 mm x 50 mm balloon followed by placement of drug-eluting stent and postdilatation using NC balloon and achievement of excellent result with no dissection proximally or distally and maintenance of JENARO-3 flow with reduction of stenosis from 80% to 0%. Following this TR band applied to right radial artery area with no complication in the Property Claim Rep Patient was given a total of 9000 of heparin and ACT level was around 240 and she was given additional 2000 of heparin she was given 180 mg of Brilinta and she was given aspirin. Conclusion successful PCI of diffuse mid LAD as described with the achievement of 0% stenosis post PCI maintenance of JENARO-3 flow Recommendation and plan; 1. To continue on dual antiplatelet therapy/DAPT Brilinta/aspirin for 1 year number 2. Patient will continue for follow-up with the primary snow removal supervisor Dr. Elsie Michel MD,[facility] bus and rail operator
--- NOTE | 2020-09-15 10:45 | EKG12_ITS ---
Test Reason : AM EKG Blood Pressure : / mmHG Vent. Rate : 063 BPM Atrial Rate : 063 BPM P-R Int : 172 ms QRS Dur : 150 ms QT Int : 490 ms P-R-T Axes : 049 -27 154 degrees QTc Int : 501 ms Normal sinus rhythm Left bundle branch block Abnormal ECG Confirmed by AUSTYN KENNEDY, COLT ([id number]), features editor GERARD HAINES ([id number]) on 09/18/2020 9:03:07 AM Referred By: Colt Zaman Confirmed By:COLT ZAMAN MD
--- NOTE | 2020-09-15 11:40 | CL.D_ITS ---
Patient Name: KANA ORTIZ Study Date: 09/15/2020 Performing: Colt Zimmerman MD Ht: 60 inches 152 cm : 1950 Wt: 183.2 lbs 83 kg Age: 70 Gender: female BSA: 1.79 PROCEDURE(S) PERFORMED XY09-ECK/COR/LV [id number] W OR WO PTCA, SINGLE CORONARY ARTERY CLINICAL PROFILE AND INDICATIONS Indications: Suspected CAD Heart Failure: None Stress/Imaging Date: 06/23/2020tress Test with SPECT MPI: Positive Intermediate Risk Angina Classification Anginal Classification w/in 2 Weeks: CCS III CAD Presentations: Stable angina. CONCLUSIONS Elevated Left Ventricular End Diastolic Pressure Segmented LV systolic dysfunction- Moderate LVEF: by LV gram 30 % [place] Multivessel CAD RECOMMENDATIONS Risk factor modification Medical therapy Referred for immediate PCI Case discussed / reviewed with Dr. Michel of Interventional Cardiology DESCRIPTION OF PROCEDURE The patient arrived to the procedure lab. The risks and benefits of the procedure as well as a full d escription of our services here and current unavailability of surgical backup were fully explained to the patient and/or their significant other prior to the catheterization. The Timeout was completed, verifying the correct patient and procedure. The patient's procedural site was prepped and draped in the usual fashion. Local anesthetic was given subcutaneously to right radial region with Lidocaine 2% . Using a modified Seldinger technique, arterial access was obtained via the right radial artery, a 6 Fr sheath was inserted. Left Coronary Artery selective angiography was performed in multiple views u sing a 5 Fr. 4.0 Goldsmith catheter. Right Coronary Artery selective angiography was then performed in mu ltiple views using a 5 Fr. 4.0 Goldsmith catheter. Left Ventriculography was performed in SALAS projection using a 5 Fr. Pigtail catheter. LV to AO pullback pressures were then recorded.The arterial sheath was pulled and a TR Band was applied for hemostasis. Sheath flushed prior to removal, 13cc air inserted CORONARY ANGIOGRAPHY DOMINANCE: Right Dominant LEFT HEART ASSESSMENT Left Ventricular Ejection Fraction: by LV Gram 30 % Anterior Hypokinesis. Apical Hypokinesis Elevated Left Ventricular End Diastolic Pressure LVEDP: 38 mmHg LEFT MAIN: Angiographically normal LEFT ANTERIOR DESCENDING ARTERY: PROX LAD: Mild luminal irregularities MID LAD: diffuse: irregular: 85 % Stenosis CIRCUMFLEX ARTERY: OSTIAL CIRC: 25 % Stenosis PROX CIRC: eccentric: 25 % Stenosis RAMUS: Angiographically normal RIGHT CORONARY ARTERY: PROX RCA: Mild luminal irregularities AORTIC ROOT: Angiographically normal COMPLICATIONS No Complications PROCEDURE MEDICATIONS Fentanyl 50 mcg IV Versed 1 mg IV Oxygen: 2 L/min via nasal cannula Baby Aspirin (81mg) 1 Tabs PO 09/15/2020 08:15:52 Brilinta 180 mg PO @ 09/15/2020 09:52:29 Heparin given IA 09/15/2020 09:38:03 Heparin 6000 unit(s) IV 09/15/2020 09:57:14 Heparin 2000 unit(s) IV 09/15/2020 10:23:24 Nitro 200 mcg IC 09/15/2020 10:16:50 Verapamil 2.5mg, Ntg 100mcgs, 3000 units of Heparin given IA 09/15/2020 09:38:03 SUMMARY OF HEMODYNAMIC DATA Time AIR REST ECG 08:16:18 AO 161/77 (107) SA 09:39:36 LV 184/12, 37 09:44:57 LV 183/11, 38 09:45:03 LV 175/11, 36 09:45:45 LV 176/10, 36 09:45:51 LVp 179/9, 33 09:45:56 AOp 175/73 (111) 09:46:01 Signed By Colt Zimmerman MD On 09/15/2020 11:39:43 Colt Zimmerman MD
--- NOTE | 2020-09-15 12:04 | RAD_ITS ---
STUDY: X-RAY CHEST REASON FOR EXAM: Female, 70 years old. SOB TECHNIQUE: Single AP portable view of the chest. COMPARISON: 08/20/2020 FINDINGS: The lungs are clear and expanded. There is no demonstrated pleural abnormality. Normal size heart. Normal mediastinum and mahad. Normal visualized pulmonary arteries. Normal visualized aortic arch and descending thoracic aorta. Normal visualized thoracic spine. Normal visualized ribs, clavicles, and shoulders. There is no demonstrated abnormality of the visualized soft tissue structures of the upper abdomen. RAD/Chest 1 View (Portable) IMPRESSION: Normal x-ray examination of the chest. Electronically Signed: Mark Banegas MD at 12:59 EDT Tel , Service support ,
[2020-09-15] MEDS: Furosemide 40 MG/4 ML Vial IV ×2 (12:10→19:50)
[2020-09-15] MEDS: Morphine 2 MG/ML Syringe IV (12:20)
[2020-09-15] MEDS: 0.9% Saline Lock 10 ML Syringe IV (12:24)
--- NOTE | 2020-09-15 12:50 | NURSING ---
This RN called and spoke with patient's sister Annetta informing her of change of condition and move to ICU.
--- NOTE | 2020-09-15 12:52 | PCM.PN.CARD ---
Subjective Subjective The patient is status post diagnostic cardiac catheterization and subsequent LAD PCI. She returned to the PCU for continued post procedure evaluation care. She was noted to become short of breath and hypoxic with no ongoing chest discomfort. Her O2 saturation had declined. Her ECG demonstrated no acute ECG changes. Based on review of her case there was concerns that she had developed post procedure related CHF/flash pulmonary edema. She was evaluated by Dr. Michel who initiated further evaluation with chest x-ray as well as medical therapy with IV furosemide, IV nitroglycerin, IV morphine sulfate, and BiPAP therapy. She was subsequently quested to be placed in the ICU for continued evaluation care of her respiratory status. A consultation was placed to intensive care medicine/pulmonology for their assistance in her respiratory status. Objective Data Vital Signs: Vital Signs Temp Pulse Resp BP Pulse Ox 97.6 F L 96 30 H 142/75 H 98 09/15/20 10:50 09/15/20 12:30 09/15/20 12:30 09/15/20 12:30 09/15/20 12:30 Oxygen Flow Rate (L/min) 6 Oxygen Delivery Method Bi-pap Weight: 193 lb 3.2 oz Body Mass Index (BMI) 37.7 Lab / Micro Data Result Diagrams: 09/15/20 13:15 09/15/20 13:15 Cardiology Labs/Tests Rhythm: Sinus rhythm EKG: Sinus rhythm; LBBB ECHO: 06/23/2020 Interpretation Summary The study was technically difficult. Contrast injection was performed. Severe global left ventricular systolic dysfunction. The estimated ejection fraction is 25 %. The left atrium is mildly enlarged. There is moderate mitral annular calcification. Extension the mitral annular calcification on the base of the posterior mitral valve leaflet. Mild (1+) mitral valve insufficiency. Trivial tricuspid valve insufficiency. Mild focal aortic valve calcification. Trivial aortic valve insufficiency. Trivial pericardial effusion. There are no echocardiographic indications of cardiac tamponade. Right ventricular systolic pressure estimated to be 44 mmHg. Transmitral diastolic flow velocities suggest diastolic dysfunction (pseudonormal pattern). Stress Test: Stress Test Report Date: 06-23-2020 Procedure: Pharmacologic stress nuclear imaging study Indications: Chest pain; shortness of breath/dyspnea on exertion Consent: Per the patient Procedure: The patient underwent pharmacologic (Regadenoson 0.4mg ) evaluation with a peak heart rate of 90 beats per minute (59%predicted maximal heart rate) and a peak blood pressure of 140/64 mmHg. The baseline ECG demonstrated sinus rhythm; bundle branch block. The peak pharmacologic ECG demonstrated no obvious ECG changes. There was a rare PAC/PVC in recovery. There was no complaint of chest discomfort during pharmacologic infusion or recovery. The examination was discontinued secondary to completion of protocol. Impression: 1. Pharmacologic (Regadenoson) evaluation 2. Peak pharmacologic ECG with no obvious ECG changes. 3. There were no cardiac dysrhythmias pretest, during pharmacologic infusion, or recovery. 4. Nuclear images pending Myocardial perfusion imaging study: Technique: The patient was injected with 14.6 millicuries of technetium 99m Cardiolite and subsequently rest SPECT Cardiolite nuclear imaging was obtained in the horizontal long, vertical long, and short axis views. The patient underwent pharmacologic (Regadenoson) evaluation with a peak heart rate of 90 beats per minute (59% percent predicted maximal heart rate) and a peak blood pressure of 140/64 mmHg. The patient was injected with 44.6 millicuries of technetium 99m Cardiolite and subsequently stress SPECT Cardiolite nuclear imaging was obtained in the horizontal long, vertical long, and short axis views. A gated Cardiolite study at peak stress was obtained. Interpretation: Rest and stress SPECT Cardiolite nuclear imaging status post realignment, normalization, and attenuation correction demonstrate the appearance of diminished myocardial perfusion/tracer uptake in portions of the distal anterior, distal anteroseptal, anteroapical, and septal apical segments which appear to be somewhat more prominent following stress of the posterior rest. There is diminished end systolic thickening and brightening. The gated Cardiolite study demonstrates diminished myocardial thickening and inward wall motion. The reported LVEF is 37%. Impression: 1. Rest and stress SPECT her nuclear imaging demonstrate myocardial perfusion changes potentially compatible with an area of previous myocardial injury/infarction with post-rest myocardial perfusion changes suggestive of juan david-infarct related myocardial ischemia involving portions of the distal anterior, distal anteroseptal, anteroapical, and septal apical segments. 2. The gated Cardiolite study reports an LVEF of 37%. Cardiac Cath: CONCLUSIONS Elevated Left Ventricular End Diastolic Pressure Segmented LV systolic dysfunction- Moderate LVEF: by LV gram 30 % Enterprise Multivessel CAD RECOMMENDATIONS Risk factor modification Medical therapy Referred for immediate PCI Case discussed / reviewed with Dr. Michel of Interventional Cardiology DESCRIPTION OF PROCEDURE The patient arrived to the procedure lab. The risks and benefits of the procedure as well as a full description of our services here and current unavailability of surgical backup were fully explained to the patient and/or their significant other prior to the catheterization. The Timeout was completed, verifying the correct patient and procedure. The patient's procedural site was prepped and draped in the usual fashion. Local anesthetic was given subcutaneously to right radial region with Lidocaine 2%. Using a modified Seldinger technique, arterial access was obtained via the right radial artery, a 6Fr sheath was inserted. Left Coronary Artery selective angiography was performed in multiple views using a 5 Fr. 4.0 [place] catheter. Right Coronary Artery selective angiography was then performed in multiple views using a 5 Fr. 4.0 [place] catheter. Left Ventriculography was performed in SALAS projection using a 5 Fr. Pigtail catheter. LV to AO pullback pressures were then recorded.The arterial sheath was pulled and a TR Band was applied for hemostasis. Sheath flushed prior to removal, 13cc air inserted CORONARY ANGIOGRAPHY DOMINANCE: Right Dominant LEFT HEART ASSESSMENT Left Ventricular Ejection Fraction: by LV Gram 30 % Anterior Hypokinesis. Apical Hypokinesis Elevated Left Ventricular End Diastolic Pressure LVEDP: 38 mmHg LEFT MAIN: Angiographically normal LEFT ANTERIOR DESCENDING ARTERY: PROX LAD: Mild luminal irregularities MID LAD: diffuse: irregular: 85 % Stenosis CIRCUMFLEX ARTERY: OSTIAL CIRC: 25 % Stenosis PROX CIRC: eccentric: 25 % Stenosis RAMUS: Angiographically normal RIGHT CORONARY ARTERY: PROX RCA: Mild luminal irregularities AORTIC ROOT: Angiographically normal PCI: LAD: PTCA/DOROTHY Chest x-ray: Preliminary evaluation: Findings compatible with increased pulmonary vascularity compatible with CHF/pulmonary edema. Radiology report pending. Physical Exam Narrative The patient is awake and alert and short of breath/dyspneic. Const alert and oriented x3 Orientation / Consciousness: awake HEENT normocephalic, head/scalp atraumatic and hearing grossly normal bilaterally Eyes PERRL, EOMs intact bilaterally and conjunctivae normal Neck full ROM and supple Resp Auscultation: rales bilateral throughout Cardio regular rate, regular rhythm, S1 normal heart sound and S2 normal heart sound GI normal to inspection, nondistended, normoactive bowel sounds Extremity no pedal edema Peripheral Pulses: Yes radial pulses present right (No obvious bruit; no obvious hematoma) 2+ Skin no rashes or lesions noted Psych mental status grossly normal Assessment & Plan Assessment/Plan (1) Flash pulmonary edema: PLAN: The patient appears to experienced flash pulmonary edema status post her cardiac catheterization/PCI procedure. At the moment she is being evaluated and treated medically with a combination of agents including IV diuretics, IV nitroglycerin, and IV morphine sulfate. She is also receiving BiPAP therapy. She is going to be placed in the ICU for further evaluation care. A consultation has been placed to Dr. Ware of intensive care medicine stress pulmonology for his assistance with her respiratory status. (2) Cardiomyopathy: QUALIFIERS: Cardiomyopathy type: ischemic Qualified Code(s): I25.5 - Ischemic cardiomyopathy PLAN: She does have a history of an underlying cardiomyopathy. Based upon her cardiac catheterization this may be ischemic mediated. She will need to continue medical therapy. She has also undergone LAD PCI earlier this day. (3) CAD (coronary artery disease): QUALIFIERS: Coronary Disease-Associated Artery/Lesion type: [place] artery [place] vs. transplanted heart: absentee-[place]nee heart PLAN: The patient's cardiac catheterization as noted. She was found to have angiographically significant appearing disease of the LAD. Based upon her clinical course, her previous stress test findings, and her cardiac catheterization findings she underwent LAD PCI with a good angiographic result. She will need to continue medical management and follow-up. (4) S/P PTCA (percutaneous transluminal coronary angioplasty): PLAN: Again she underwent LAD PCI/DOROTHY. She will need to continue medical therapy and follow-up. (5) Pure hypercholesterolemia: PLAN: She will continue risk factor evaluation care as deemed appropriate. (6) Essential hypertension: PLAN: Her blood pressure is markedly elevated which may be secondary to her acute condition with respect to flash pulmonary edema. She will continue to be monitored with respect to her vital signs. She will be treated medically as needed. Addt'l Comments This note was generated using a voice recognition system and there may be incorrect words, spelling or punctuation that were not noted when reviewing the office note prior to saving.
[2020-09-15] MEDS: Nitroglycerin Infusion 250 ML 3 MG CONT INF (13:06)
--- NOTE | 2020-09-15 13:13 | NURSING ---
arrived to icu on bipap tr band in place to rt wrist patient denies pain
[2020-09-15 13:21] LABS: Absolute Lymphocyte Count 0.93 X10^3/uL (0.83-4.51); Absolute Neutrophil Count 12.7 X10^3/uL (2.0-7.7); Basophil# 0.06 X10^3/uL; Basophil% 0.4 % (0-1); Eosinophil# 0.18 X10^3/uL; Eosinophils% 1.3 % (0-5); Hematocrit 40.7 % (37-47); Hemoglobin 13.8 g/dL (12.0-15.0); Lymphocyte # 0.93 X10^3/ul (0.83-4.51); Lymphocyte % 6.5 % (19-41); Mean Corp Hgb Conc 33.9 g/dL (32-36); Mean Corpuscular Hgb 29.7 pg (27.0-32.0); Mean Corpuscular Volume 87.7 fL (81-99); Monocyte# 0.48 X10^3/uL; Monocyte% 3.3 % (0-10); NRBC Flagged by Analyzer 0 % (0-5); Neutrophil # 12.65 X10^3/uL (2.7-7.7); Neutrophil % 87.8 % (47-70); Platelet Count 185 K/mm3 (150-450); RBC Distribution Width CV 12.9 % (11.6-14.6); Red Blood Count 4.64 M/mm3 (4.2-5.4); White Blood Count 14.4 K/mm3 (4.4-11.0)
--- NOTE | 2020-09-15 13:21 | NURSING ---
called sister gave update
[2020-09-15 13:33] LABS: Anion Gap 9 (5-15); BUN 16 mg/dL (7-18); BUN/Creat Ratio 16.8 RATIO (10-20); Calcium,Total 8.8 mg/dL (8.5-10.1); Chloride 106 mmol/L (98-107); Creatinine, Serum 0.96 mg/dL (0.55-1.02); EST Glomerular Filtration Rate 62 mL/min (>60); Est Glom Filt Rate - Afr Amer 75 mL/min (>60); Estimated Creatinine Clearance 40.29 ml/min; Glucose 316 mg/dL (74-106); Potassium 4.2 mmol/L (3.5-5.1); Sodium Level 137 mmol/L (136-145)
--- NOTE | 2020-09-15 13:43 | CON.PCM.CC_ITS ---
Assessment & Plan Assessment/Plan (1) Acute respiratory failure with hypoxia: (2) Flash pulmonary edema: (3) S/P PTCA (percutaneous transluminal coronary angioplasty): (4) Cardiomyopathy: QUALIFIERS: Cardiomyopathy type: ischemic Qualified Code(s): I25.5 - Ischemic cardiomyopathy (5) Decreased cardiac ejection fraction: PLAN: RECOMMENDATIONS: 1. Await response to Lasix therapy 2. Wean FiO2 as tolerated 3. Continue nitroglycerin for afterload reduction 4. No antibiotics or steroids are indicated in my opinion 5. Okay to continue with baseline cardiac meds from my perspective 6. Defer anticoagulation/antiplatelet therapy to cardiology IMPRESSIONS: 1. Acute hypoxic respiratory failure secondary to flash pulmonary edema status post PTCA Patient appears to be responding well to BiPAP therapy. Patient has had significant urine output following 1 dose of Lasix. We will hold off on additional doses and monitor. Continue to wean FiO2 as tolerated. BiPAP breaks as tolerated once patient reaches 30% FiO2. Agree with nitroglycerin for afterload reduction. Patient does have a leukocytosis, but this is likely secondary to stress response. Patient is not reporting any constitutional symptoms prior to the procedure to suggest pneumonia. Defer to cardiology on discontinuation of TR band 2. Possible EUGENIA Patient does have elevated risk for EUGENIA using STOP-BANG analysis. This may indicate the patient will require noninvasive therapy such as BiPAP overnight with sleep. Monitor continuous pulse ox while patient is receiving morphine. Patient may benefit from a sleep study as an outpatient. 3. Diabetes mellitus type 2/hypothyroidism/GERD/hyperlipidemia/ischemic cardiomyopathy Complicates care, management, recovery and prognosis. Okay to continue with baseline medications from my perspective. Would not recommend any long- acting insulin as patient will have difficulty taking p.o. with BiPAP in place. Will initiate blood sugar checks. TIME: 32 minutes critical care time spent addressing patient's acute hypoxic respiratory failure, hyperglycemia, review of all data and collaboration with care team (12:30 PM to 2 PM) HPI Consult Data Date of Consult: 09/15/20 HPI Narrative HPI Narrative: KANA ORTIZ is a 70 F, with past medical history listed below, who presented to [facility] 09[facility]15[facility]2020 secondary to an elective outpatient cardiac catheterization. Patient reportedly has been having worsening shortness of breath and an abnormal ECG with a left bundle branch. This was followed up by a transthoracic echocardiogram that was abnormal and a subsequent abnormal pharmacologic nuclear stress study. At the cardiac catheterization, patient was noted to have a mid LAD 80% occlusion that required intervention with a 2.5 x 20 mm Synergy drug-eluting stent. A radial approach from the right was used for access. Patient reportedly tolerated the procedure well, but during post evaluation care patient became significantly short of breath and hypoxic. Patient reportedly had not reported any chest discomfort at that time, but oxygen saturations continued to decline. EKG showed no acute ST elevations. Dr. Michel was called and a chest x-ray was ordered. Patient was also given IV furosemide, nitroglycerin and morphine. Patient was initially placed on a nonrebreather, but then elevated to a BiPAP to help with oxygen status. On arrival to the intensive care unit, patient was feeling subjectively much improved after initiation of BiPAP therapy. Oxygen saturations were to 100% on 60% FiO2. Patient denied any chest pain. Patient states that she is never required supplemental oxygen previously. Patient does report a history of smoking, but is unaware of any diagnosis of COPD. Patient does report that she snores, but does not ever being told about obstructive sleep apnea. Prior to her procedure, patient had not reported any constitutional symptoms such as sinus congestion, fever, chills, shortness of breath or cyanosis. Patient reports that she has been compliant with her medications. Review of systems otherwise negative from a constitutional, HEENT, respiratory, cardiovascular, GI, genitourinary, musculoskeletal, skin, neurologic, psychiatric and hematologic system unless stated above. [facility] Medical History Abnormal echocardiogram Abnormal stress test CAD (coronary artery disease) Cardiomyopathy Decreased cardiac ejection fraction Dyspnea Essential hypertension GERD (gastroesophageal reflux disease) Hypothyroidism LBBB (left bundle branch block) Pure hypercholesterolemia Type 2 diabetes mellitus Home Medications atenolol 25 mg tablet 25 mg PO DAILY 07/31/20 [History Last Taken Unknown] glimepiride 4 mg tablet 4 mg PO BID tab 07/31/20 [History Last Taken Unknown] levothyroxine 25 mcg tablet 25 mcg PO DAILY 07/31/20 [History Last Taken Un known] metformin 1,000 mg tablet 1,000 mg PO DAILY 07/31/20 [History Last Taken Unknown] nitroglycerin 0.1 mg/hr transdermal 24 hour patch 1 patch TRANSDERMAL Q24H 07/31/20 [History Last Taken Unknown] pravastatin 80 mg tablet 80 mg PO QHS 07/31/20 [History Last Taken Unknown] aspirin 81 mg chewable tablet 81 mg PO DAILY #1 tab 08/20/20 [Rx Last Taken Unknown] carvedilol 3.125 mg tablet 3.125 mg PO BID #60 tab 08/20/20 [Rx Last Taken Unknown] furosemide 20 mg tablet 20 mg PO DAILY #30 tab 08/20/20 [Rx Last Taken Unknown] lisinopril 10 mg tablet 10 mg PO BID tab 08/20/20 [History Last Taken Unknown] potassium chloride 20 mEq tablet,extended release 20 meq PO DAILY #30 tab 08/20/20 [Rx Last Taken Unknown] Allergy/AdvReac Type Severity Reaction Status Date / Time No Known Allergies Allergy Verified 08/20/20 11:31 Family History Mother CVA (cerebral vascular accident), Onset Age: 67 Brother Myocardial infarction, Onset Age: 50 Father Cancer, Onset Age: 57 Surgical History H/O total hysterectomy with bilateral salpingo-oophorectomy (BSO) History of cholecystectomy History of repair of right rotator cuff S/P PTCA (percutaneous transluminal coronary angioplasty) Social History Smoking Status: Former smoker alcohol intake: current details: occasional substance use type: does not use caffeine: Yes Type: carbonated beverages Number of servings: 1 and coffee Number of servings: 4 ROS ROS Narrative See HPI Physical Exam Const alert, oriented x3 and no apparent distress General Appearance: cooperative and well developed HEENT normocephalic, head/scalp atraumatic and moist oral mucous membranes Eyes PERRL and EOMs intact bilaterally Neck full ROM and no lymphadenopathy Chest inspection of chest normal Resp Resp Narrative: Comfortable on BiPAP therapy Effort and Inspection: Negative for actively coughing or retractions Auscultation: clear to auscultation bilaterally and rales diffuse; Negative for rhonchi or wheezes Percussion: Negative for dullness Cardio regular rhythm, S1 normal heart sound, S2 normal heart sound, no murmurs, no rub and no gallops Rate: tachycardic Peripheral Pulses: pulses 2+ throughout GI normal to inspection, nondistended, normoactive bowel sounds no CVA tenderness Extremity no clubbing, cyanosis or edema Skin no rashes or lesions noted Neuro oriented x3, CN's II-XII intact bilaterally, moves all extremities and no focal motor deficits Psych cooperative and affect normal Lab / Micro Data Result Diagrams: 09/15/20 13:15 09/15/20 13:15 Labs: Laboratory Results - last 24 hr 09/15/20 13:15: Sodium 137, Potassium 4.2, Chloride 106, Carbon Dioxide 22.0, Anion Gap 9, BUN 16, Creatinine 0.96, Estim Creat Clear Calc 40.29, Est GFR (MDRD) Af Amer 75, Est GFR (MDRD) Non-Af 62, BUN/Creatinine Ratio 16.8, Glucose 316 H, Calcium 8.8, Magnesium 2.0 09/15/20 13:15: WBC 14.4 H, RBC 4.64, Hgb 13.8, Hct 40.7, MCV 87.7, MCH 29.7, MCHC 33.9, RDW Std Deviation 41.0, RDW Coeff of Diana 12.9, Plt Count 185, MPV 12.0, Immature Gran % (Auto) 0.700, Neut % (Auto) 87.8 H, Lymph % (Auto) 6.5 L, [place] % (Auto) 3.3, Eos % (Auto) 1.3, Baso % (Auto) 0.4, Absolute Neuts (auto) 12.7 H, Absolute Lymphs (auto) 0.93, Nucleated RBC % 0 Radiology Impression Chest X-Ray 09/15/20 12:04 IMPRESSION: Normal x-ray examination of the chest. Electronically Signed: Mark Banegas MD at 12:59 EDT Tel , Service support , Charges/Coding Procedures Hospitalists Procedures: [id number] Critial Care 1st Hr
[2020-09-15 17:31] LABS: Bedside Glucose 291 mg/dL (70-110)
[2020-09-15] MEDS: Insulin Lispro 100 UNIT/ML INSULN.PEN SC ×2 (17:41→21:57)
[2020-09-15] MEDS: Atorvastatin Calcium 40 MG Tablet PO (21:53)
[2020-09-15 22:11] LABS: Bedside Glucose 299 mg/dL (70-110)
[2020-09-16] VITALS (24 sets, daily range): BP systolic 95–143; BP diastolic 45–105; PULSE 68–86; RESP 12–20; TEMP 36.2–36.8; O2SAT 92–99
[2020-09-16 04:38] LABS: Hematocrit 35.2 % (37-47); Hemoglobin 12.1 g/dL (12.0-15.0); Mean Corp Hgb Conc 34.4 g/dL (32-36); Mean Corpuscular Volume 87.3 fL (81-99); Mean Platelet Vol. 12.4 fl (6.2-12.0); Platelet Count 184 K/mm3 (150-450); RBC Distribution Width CV 13.1 % (11.6-14.6); RBC Distribution Width SD 41.2 fl (35.1-43.9); Red Blood Count 4.03 M/mm3 (4.2-5.4); White Blood Count 16.7 K/mm3 (4.4-11.0)
[2020-09-16 04:52] LABS: ALB/GLOB Ratio 0.9 RATIO (0.9-2.4); AST(SGOT) 13 U/L (15-37); Alanine Aminotransfer ALT/SGPT 18 U/L (13-56); Albumin, Serum 3.2 g/dL (3.2-5.0); Alkaline Phosphatase 83 U/L (45-117); Anion Gap 8 (5-15); BUN 25 mg/dL (7-18); BUN/Creat Ratio 22.3 RATIO (10-20); Calcium,Total 8.7 mg/dL (8.5-10.1); Chloride 103 mmol/L (98-107); Creatinine, Serum 1.12 mg/dL (0.55-1.02); EST Glomerular Filtration Rate 51 mL/min (>60); Est Glom Filt Rate - Afr Amer 62 mL/min (>60); Estimated Creatinine Clearance 34.53 ml/min; Globulin 3.7 g/dL (2.2-4.2); Glucose 223 mg/dL (74-106); Potassium 3.9 mmol/L (3.5-5.1); Protein, Total 6.9 g/dL (6.4-8.2); Sodium Level 138 mmol/L (136-145)
[2020-09-16] MEDS: Insulin Lispro 100 UNIT/ML INSULN.PEN SC ×3 (05:18→21:15)
[2020-09-16 05:41] LABS: Bedside Glucose 195 mg/dL (70-110)
--- NOTE | 2020-09-16 06:00 | RAD_ITS ---
EXAM DESCRIPTION: PORTABLE AP CHEST CLINICAL HISTORY: 70 years Female, PULMONARY EDEMA PULMONARY EDEMA COMPARISON: Previous is obtained on 09/15/2020 FINDINGS: The thorax is intact. The heart and mediastinum appear to be within normal limits. The lungs show only a faint residual amount of pulmonary edema right upper lobe adjacent to the minor fissure. This represents considerable interval improvement from the previous chest. RAD/Chest 1 View (Portable) IMPRESSION: Resolving pulmonary edema with only a small amount residual pulmonary edema seen in the right midlung. Electronically Signed: Jimmy Villalta DO at 8:45 EDT Tel , Service support ,
--- NOTE | 2020-09-16 07:06 | PN.CC_ITS ---
Assessment & Plan Assessment/Plan (1) Acute respiratory failure with hypoxia: (2) Flash pulmonary edema: (3) S/P PTCA (percutaneous transluminal coronary angioplasty): (4) Cardiomyopathy: QUALIFIERS: Cardiomyopathy type: ischemic Qualified Code(s): I25.5 - Ischemic cardiomyopathy (5) Decreased cardiac ejection fraction: PLAN: RECOMMENDATIONS: 1. Discontinuation of nitro drip per cardiology 2. Walking oximetry prior to discharge 3. Okay to resume baseline medications from my perspective 4. No antibiotics or steroids are indicated in my opinion 5. Hemodynamically stable on room air. Will sign off from a critical care perspective 6. Okay to leave the intensive care unit from my perspective IMPRESSIONS: 1. Acute hypoxic respiratory failure secondary to flash pulmonary edema status post PTCA Patient responded well to BiPAP therapy initially. Patient -2 L compared to yesterday. Patient has received 2 doses of Lasix with slight increase in creatinine. Recommend holding on further diuretic therapy. Defer to cardiology on discontinuation of nitro drip. Okay to discontinue BiPAP therapy from my perspective, but outpatient work-up for sleep apnea would still be indicated if patient is agreeable. 2. Possible EUGENIA Patient does have elevated risk for EUGENIA using STOP-BANG analysis. This m ay indicate the patient will require noninvasive therapy such as BiPAP overnight with sleep. Monitor continuous pulse ox while patient is receiving morphine. Patient may benefit from a sleep study as an outpatient. 3. Diabetes mellitus type 2/hypothyroidism/GERD/hyperlipidemia/ischemic cardiomyopathy Complicates care, management, recovery and prognosis. Okay to continue with baseline medications from my perspective. Optimization of blood sugars will be helpful for risk modification. Subjective Subjective Patient did well overnight. Patient did wear BiPAP while sleeping, but is cur rently on room air. Patient did receive an additional dose of Lasix overnight per cardiology. Patient is not reporting any chest pain, abdominal pain, nausea or vomiting. Objective Data Objective Data Vital Signs: Vital Signs Temp Pulse Resp BP Pulse Ox 36.2 C L 77 16 120/105 H 94 09/16/20 05:00 09/16/20 06:00 09/16/20 06:00 09/16/20 06:00 09/16/20 06:00 Oxygen Flow Rate (L/min) 1 Oxygen Delivery Method Room Air Weight: 82.9 kg Body Mass Index (BMI) 37.7 Intake & Output: Intake and Output for Last 24 Hours 09/14/20 09/15/20 09/16/20 23:59 23:59 23:59 Intake Total 60.10 / 186.10 162 / 162 Output Total 1200 / 2100 1200 / 1200 Balance -1139.90 / -1913.90 -1038 / -1038 Lab / Micro Data Result Diagrams: 09/16/20 04:30 09/16/20 04:30 Labs: Laboratory Results - last 24 hr 09/15/20 13:15: Sodium 137, Potassium 4.2, Chloride 106, Carbon Dioxide 22.0, Anion Gap 9, BUN 16, Creatinine 0.96, Estim Creat Clear Calc 40.29, Est GFR (MDRD) Af Amer 75, Est GFR (MDRD) Non-Af 62, BUN/Creatinine Ratio 16.8, Glucose 316 H, Calcium 8.8, Magnesium 2.0 09/15/20 13:15: WBC 14.4 H, RBC 4.64, Hgb 13.8, Hct 40.7, MCV 87.7, MCH 29.7, MCHC 33.9, RDW Std Deviation 41.0, RDW Coeff of Diana 12.9, Plt Count 185, MPV 12.0, Immature Gran % (Auto) 0.700, Neut % (Auto) 87.8 H, Lymph % (Auto) 6.5 L, [place] % (Auto) 3.3, Eos % (Auto) 1.3, Baso % (Auto) 0.4, Absolute Neuts (auto) 12.7 H, Absolute Lymphs (auto) 0.93, Nucleated RBC % 0 09/15/20 17:21: POC Glucose 291 H 09/15/20 21:56: POC Glucose 299 H 09/16/20 04:30: WBC 16.7 H, RBC 4.03 L, Hgb 12.1, Hct 35.2 L, MCV 87.3, MCH 30.0, MCHC 34.4, RDW Std Deviation 41.2, RDW Coeff of Diana 13.1, Plt Count 184, MPV 12.4 H 09/16/20 04:30: Sodium 138, Potassium 3.9, Chloride 103, Carbon Dioxide 27.0, Anion Gap 8, BUN 25 H, Creatinine 1.12 H, Estim Creat Clear Calc 34.53, Est GFR (MDRD) Af Amer 62, Est GFR (MDRD) Non-Af 51 L, BUN/Creatinine Ratio 22.3 H, Glucose 223 H, Calcium 8.7, Total Bilirubin 0.40, AST 13 L, ALT 18, Alkaline Ph osphatase 83, Total Protein 6.9, Albumin 3.2, Globulin 3.7, Albumin/Globulin Ratio 0.9 09/16/20 05:17: POC Glucose 195 H Radiography Diagnostic Testing: Radiology Impression Chest X-Ray 09/15/20 12:04 IMPRESSION: Normal x-ray examination of the chest. Electronically Signed: Mark Banegas MD at 12:59 EDT Tel , Service support , Physical Exam Const alert, oriented x3 and no apparent distress General Appearance: cooperative and well developed HEENT normocephalic, head/scalp atraumatic and moist oral mucous membranes Eyes PERRL and EOMs intact bilaterally Neck full ROM and no lymphadenopathy Chest inspection of chest normal Resp Resp Narrative: Comfortable on room air Effort and Inspection: Negative for actively coughing or retractions Auscultation: clear to auscultation bilaterally; Negative for rales, rhonchi or wheezes Percussion: Negative for dullness Cardio regular rhythm, S1 normal heart sound, S2 normal heart sound, no murmurs, no rub and no gallops Rate: tachycardic Peripheral Pulses: pulses 2+ throughout GI normal to inspection, nondistended, normoactive bowel sounds no CVA tenderness Extremity no clubbing, cyanosis or edema Skin no rashes or lesions noted Neuro oriented x3, CN's II-XII intact bilaterally, moves all extremities and no focal motor deficits Psych cooperative and affect normal Charges/Coding Visit Charges Inpatient E&M: 12823 Subs Hosp L2
[2020-09-16] MEDS: TICAGRELOR 90 MG TABLET PO ×2 (08:01→21:16)
[2020-09-16] MEDS: Aspirin E.C. 81 MG Tablet PO (08:01)
--- NOTE | 2020-09-16 08:49 | PN.CARD_ITS ---
Subjective Subjective The patient is awake and. She is now without continued O2 support. She states she feels much better. Objective Data Vital Signs: Vital Signs Temp Pulse Resp BP Pulse Ox 97.5 F L 81 18 112/64 93 09/16/20 07:30 09/16/20 07:56 09/16/20 07:56 09/16/20 08:45 09/16/20 07:56 Oxygen Flow Rate (L/min) 1 Oxygen Delivery Method Room Air Weight: 182 lb 12.211 oz Body Mass Index (BMI) 37.7 Intake & Output: Intake and Output for Last 24 Hours 09/14/20 09/15/20 09/16/20 23:59 23:59 23:59 Intake Total 60.10 / 186.10 174.8 / 174.8 Output Total 1200 / 2100 1200 / 1200 Balance -1139.90 / -1913.90 -1025.2 / -1025.2 Lab / Micro Data Result Diagrams: 09/16/20 04:30 09/16/20 04:30 Labs: Laboratory Results - last 24 hr 09/15/20 13:15: Sodium 137, Potassium 4.2, Chloride 106, Carbon Dioxide 22.0, Anion Gap 9, BUN 16, Creatinine 0.96, Estim Creat Clear Calc 40.29, Est GFR (MDRD) Af Amer 75, Est GFR (MDRD) Non-Af 62, BUN/Creatinine Ratio 16.8, Glucose 316 H, Calcium 8.8, Magnesium 2.0 09/15/20 13:15: WBC 14.4 H, RBC 4.64, Hgb 13.8, Hct 40.7, MCV 87.7, MCH 29.7, MCHC 33.9, RDW Std Deviation 41.0, RDW Coeff of Diana 12.9, Plt Count 185, MPV 12.0, Immature Gran % (Auto) 0.700, Neut % (Auto) 87.8 H, Lymph % (Auto) 6.5 L, [place] % (Auto) 3.3, Eos % (Auto) 1.3, Baso % (Auto) 0.4, Absolute Neuts (auto) 12 .7 H, Absolute Lymphs (auto) 0.93, Nucleated RBC % 0 09/15/20 17:21: POC Glucose 291 H 09/15/20 21:56: POC Glucose 299 H 09/16/20 04:30: WBC 16.7 H, RBC 4.03 L, Hgb 12.1, Hct 35.2 L, MCV 87.3, MCH 30.0, MCHC 34.4, RDW Std Deviation 41.2, RDW Coeff of Diana 13.1, Plt Count 184, MPV 12.4 H 09/16/20 04:30: Sodium 138, Potassium 3.9, Chloride 103, Carbon Dioxide 27.0, Anion Gap 8, BUN 25 H, Creatinine 1.12 H, Estim Creat Clear Calc 34.53, Est GFR (MDRD) Af Amer 62, Est GFR (MDRD) Non-Af 51 L, BUN/Creatinine Ratio 22.3 H, Glucose 223 H, Calcium 8.7, Total Bilirubin 0.40, AST 13 L, ALT 18, Alkaline Phosphatase 83, Total Protein 6.9, Albumin 3.2, Globulin 3.7, Albumin/Globulin Ratio 0.9 09/16/20 05:17: POC Glucose 195 H Cardiology Labs/Tests 09/15/20 13:15: Sodium 137, Potassium 4.2, Chloride 106, Carbon Dioxide 22.0, Anion Gap 9, BUN 16, Creatinine 0.96, Est GFR (MDRD) Af Amer 75, Est GFR (MDRD) Non-Af 62, BUN/Creatinine Ratio 16.8, Glucose 316 H, Calcium 8.8, Magnesium 2.0 09/15/20 13:15: WBC 14.4 H, RBC 4.64, Hgb 13.8, Hct 40.7, MCV 87.7, MCH 29.7, MCHC 33.9, Plt Count 185, MPV 12.0, Immature Gran % (Auto) 0.700, Neut % (Auto) 87.8 H, Lymph % (Auto) 6.5 L, [place] % (Auto) 3.3, Eos % (Auto) 1.3, Baso % (Auto) 0.4, Absolute Neuts (auto) 12.7 H, Nucleated RBC % 0 09/16/20 04:30: WBC 16.7 H, RBC 4.03 L, Hgb 12.1, Hct 35.2 L, MCV 87.3, MCH 30.0, MCHC 34.4, Plt Count 184, MPV 12.4 H 09/16/20 04:30: Sodium 138, Potassium 3.9, Chloride 103, Carbon Dioxide 27.0, Anion Gap 8, BUN 25 H, Creatinine 1.12 H, Est GFR (MDRD) Af Amer 62, Est GFR (MDRD) Non-Af 51 L, BUN/Creatinine Ratio 22.3 H, Glucose 223 H, Calcium 8.7, Total Bilirubin 0.40 Rhythm: Sinus rhythm EKG: Sinus rhythm; left bundle branch block pattern Radiography Diagnostic Testing: Radiology Impression Chest X-Ray 09/15/20 12:04 IMPRESSION: Normal x-ray examination of the chest. Electronically Signed: Mark Banegas MD at 12:59 EDT Tel , Service support , Chest X-Ray 09/16/20 06:00 IMPRESSION: Resolving pulmonary edema with only a small amount residual pulmonary edema seen in the right midlung. Electronically Signed: Jimmy Villalta DO at 8:45 EDT Tel , Service support , Physical Exam Narrative The patient is awake and alert and short of breath/dyspneic. Const alert and oriented x3 Orientation / Consciousness: awake HEENT normocephalic, head/scalp atraumatic and hearing grossly normal bilaterally Eyes PERRL, EOMs intact bilaterally and conjunctivae normal Neck full ROM and supple Resp clear to auscultation bilaterally Cardio regular rate, regular rhythm, S1 normal heart sound and S2 normal heart sound GI normal to inspection, nondistended, normoactive bowel sounds Extremity no pedal edema Skin no rashes or lesions noted Psych mental status grossly normal Assessment & Plan Assessment/Plan (1) Flash pulmonary edema: PLAN: The patient appears to experienced flash pulmonary edema status post her cardiac catheterization/PCI procedure. She has been evaluated and treated in the ICU. At the present time she appears to have had significant improvement with respect to her respiratory status status post her diuresis. She will continue to be monitored. Her medications will be adjusted. (2) Cardiomyopathy: QUALIFIERS: Cardiomyopathy type: ischemic Qualified Code(s): I25.5 - Ischemic cardiomyopathy PLAN: She does have a history of an underlying cardiomyopathy. Based upon her cardiac catheterization this may be ischemic mediated. She will need to continue medical therapy. She has also undergone LAD PCI on 09-15-2020. (3) CAD (coronary artery disease): QUALIFIERS: Coronary Disease-Associated Artery/Lesion type: [place] artery [place] vs. transplanted heart: [place] heart PLAN: The patient's cardiac catheterization as noted. She was found to have angiographically significant appearing disease of the LAD. Based upon her clinical course, her previous stress test findings, and her cardiac catheterization findings she underwent LAD PCI with a good angiographic result. She will need to continue medical management and follow-up. (4) S/P PTCA (percutaneous transluminal coronary angioplasty): PLAN: Again she underwent LAD PCI/DOROTHY. She will need to continue medical therapy and follow-up. (5) Pure hypercholesterolemia: PLAN: She will continue risk factor evaluation care as deemed appropriate. (6) Essential hypertension: PLAN: Her blood pressure is markedly elevated which may be secondary to her acute condition with respect to flash pulmonary edema. She will continue to be monitored with respect to her vital signs. She will be treated medically as needed. Addt'l Comments Overall the patient does appear to have significant improvement in her clinical status/respiratory status status post medical management including IV diuresis. Her medications will continue to be adjusted. If she remains symptomatically and hemodynamically stable she will be transferred from the ICU to the PCU for continued evaluation and care. Comment: The patient's case was discussed and reviewed with patient and Dr. Ware. This note was generated using a voice recognition system and there may be inc orrect words, spelling or punctuation that were not noted when reviewing the office note prior to saving.
[2020-09-16] MEDS: 0.9% Saline Lock 10 ML Syringe IV (08:50)
--- NOTE | 2020-09-16 09:30 | CRPHASE1_ITS ---
Patient Communication PHII Cardiac Rehab Discussed with Patient:: Yes Guide to Cardiac Rehab Given to Patient:: Yes Cardiac Rehab Facility Choice List Given to Patient:: Yes Choice Program [facility] PHII:: Communication Given to CR Validation Engineer:: Colt Zimmerman Phase II Cardiac Rehab:: Yes Sessions:: 36 sessions - 3 days/wk, 12 weeks Cardiac Rehabilitation Info Cardiac Rehabilitation Program Information: Cardiac Rehabilitation is important for patients like you who are recovering from a heart problem. Cardiac rehabilitation programs are recognized as integral to the continued care of the patient with coronary heart disease. The cardiac rehabilitation program is designed to optimize a patient's physical, psychological, and social functioning. Health care companion work in cardiac rehabilitation programs and assist you with getting the treatments you need to get stronger and healthier - like exercise, healthy eating habits, and medicatio ns. Cardiac rehabilitation has been show to help people with heart problems live longer and have better life enjoyment than people who do not go to cardiac rehabilitation. Please contact the Cardiac Rehabilitation Program at [facility] at in two weeks if you have not heard from them.
--- NOTE | 2020-09-16 09:30 | CRPH1.INSTRU ---
General Education CAD and cardiac anatomy and function:: Patient communicates acknowledgment, Needs reinforcement Explanation of diagnoses and procedures:: Patient communicates acknowledgment, Needs reinforcement Sign/Symptoms of FL:: Patient communicates acknowledgment, Needs reinforcement Antiplatelet therapy: Patient communicates acknowledgment, Needs reinforcement Proper use of NTG-SL: Patient communicates acknowledgment, Needs reinforcement Emergency procedures and activation of EMS: Patient communicates acknowledgment, Needs reinforcement Compliance of all prescribed medications: Patient communicates acknowledgment, Needs reinforcement Smoking Patient Nicotine/Smoking Risk Factors Are:: Non-smoker Recommendations Include:: Previous smoker; encourage continued cessation Nicotine/Smoking Response Code:: Patient communicates acknowledgment, Needs reinforcement Dyslipidemia Patient Dyslipidemia Risk Factors Are:: Total Cholesterol, Triglycerides, HDL, LDL Recommendations Include:: Lipid profile not available, Reviewed NCEP/ATP guidelines, Therapeutic Lifestyle Change dietary guidelines Dyslipidemia Response Code:: Patient communicates acknowledgment, Needs reinforcement Overweight/Obesity Patient Overweight/Obesity Risk Factors Are:: Obesity - > or = 30 Recommendations Include:: Weight loss of 5-10%, Reduced calorie diet, Exercise 5-7 times/week Overweight/Obesity:: Patient communicates acknowledgment, Needs reinforcement Hypertension Recommendations Include:: BP <130/80 if diabetic, DASH dietary guidelines, Decrease/maintain normal body weight, Moderation of ETOH Hypertension:: Patient communicates acknowledgment, Needs reinforcement Heart Disease Patient Heart Disease Risk Factors Are:: Family history of heart disease < 65 years old Heart Disease Response Code:: Patient communicates acknowledgment, Needs reinforcement Diabetes Patient Diabetes Risk Factors Are:: Elevated blood sugars Recommendations Include:: Maintain fasting blood sugars 70-110 md/dL, Maintain HgbA1c of 6% or less, Monitor blood sugar as prescribed, Diabetic dietary guidelines, Decrease/maintain body weight Diabetes:: Patient communicates acknowledgment, Needs reinforcement Sedentary Patient Sedentary Risk Factors Are:: Lack of regular exercise Recommendations Include:: Aerobic exercise 5-7 times/week for 20-30 minutes continuously, Benefits of regular exercise, Discussed home walking program, Monitored Outpatient Cardiac Rehab Sedentary Response Code:: Patient communicates acknowledgment, Needs reinforcement
[2020-09-16] MEDS: Furosemide 40 MG Tablet PO (09:53)
[2020-09-16] MEDS: Carvedilol 3.125 MG TABLET PO ×2 (09:53→21:15)
[2020-09-16] MEDS: Glimepiride 4 MG Tablet PO (09:54)
[2020-09-16] MEDS: Levothyroxine 25 MCG TABLET PO (09:54)
[2020-09-16] MEDS: Lisinopril 10 MG Tablet PO ×2 (09:54→21:15)
--- NOTE | 2020-09-16 10:00 | EKG12_ITS ---
Test Reason : Blood Pressure : / mmHG Vent. Rate : 080 BPM Atrial Rate : 080 BPM P-R Int : 086 ms QRS Dur : 134 ms QT Int : 396 ms P-R-T Axes : 085 -20 114 degrees QTc Int : 456 ms Sinus rhythm with short CO with Premature atrial complexes Left bundle branch block Abnormal ECG Confirmed by AUSTYN KENNEDY, COLT ([id number]), primer expeditor and drier GERARD HAINES ([id number]) on 09/18/2020 9:06:17 AM Referred By: Colt Zaman Confirmed By:COLT ZAMAN MD
--- NOTE | 2020-09-16 10:25 | CASEMGMT ---
BISHOP ALEGRE GREENHOUSE SUPERINTENDENT CM to room to meet with patient for initial transition planning/care coordination assessment. BISHOP ALEGRE introduced self and role at [facility]. Pt voices understanding and consents to assessment at this time. Pt resting in bed in no distress at this time. Pt is A/O at this time and answers all questions appropriately. Care providers, pharmacy, and demographics verified/updated at this time. PCP: Dr Minaya Specialists: Dr Zimmerman-cardiology, Dr Fraire--GI, Dr Summers-[facility] Preferred Pharmacy: [facility] Retail Insurance: [employer] Prescription Benefit: Yes Living Will/HPOA: Has both LW and HPOA, who is her , Nestor, and sister, Annetta LNOK: , Nestor. Sister, Annetta. Nestor is not listed on demographics as a contact. Pt states he does not hear well on the phone and does not want his phone # listed. Living Arrangements: Lives w/her and adult son in split-level home. 4 steps to enter home and 14 steps to the basement, where the laundry is. Pt states, if needed, her or son can do the laundry, if she has concerns w/navigating the stairs. Pt/ share home mgmt tasks. Pt manages her own medications and appts. Transportation: Pt states drives self and states no transportation concerns at this time. also drives. DME: States has the following DME: functioning glucometer w/supplies, BSC Pt also has/but does not use: walker, W/C. Pt states no need for further DME at this time. HHC/SNF: No history of either. Pt denies need for HHC. Pt wishes to return home and states has no concerns with going home at time of discharge. CM to follow for any discharge planning/needs. Pt voices no concerns/needs at this time. Advised pt to ask for CM if any questions/concerns/needs arise. Voices understanding. PLAN: Home w/family support and discharge plans in place. Milli WREN RN, CM
[2020-09-16 11:46] LABS: Bedside Glucose 302 mg/dL (70-110)
[2020-09-16 17:36] LABS: Bedside Glucose 66 mg/dL (70-110)
[2020-09-16 18:51] LABS: Bedside Glucose 191 mg/dL (70-110)
[2020-09-16] MEDS: Atorvastatin Calcium 40 MG Tablet PO (21:14)
[2020-09-16 21:50] LABS: Bedside Glucose 152 mg/dL (70-110)
[2020-09-17 03:00] VITALS: PULSE 62
[2020-09-17 03:10] VITALS: BP 98/61; PULSE 73; RESP 16; TEMP 36.4; O2SAT 97
--- NOTE | 2020-09-17 05:48 | NURSING ---
Dr Zimmerman was notified of 11 beat [facility]. No new orders received
[2020-09-17] MEDS: Levothyroxine 25 MCG TABLET PO (06:12)
[2020-09-17] MEDS: Insulin Lispro 100 UNIT/ML INSULN.PEN SC (06:41)
[2020-09-17 06:55] LABS: Bedside Glucose 204 mg/dL (70-110)
[2020-09-17 07:00] VITALS: PULSE 60
[2020-09-17 07:09] LABS: Anion Gap 8 (5-15); BUN 29 mg/dL (7-18); Calcium,Total 8.6 mg/dL (8.5-10.1); Chloride 105 mmol/L (98-107); EST Glomerular Filtration Rate 59 mL/min (>60); Est Glom Filt Rate - Afr Amer 71 mL/min (>60); Estimated Creatinine Clearance 38.68 ml/min; Glucose 187 mg/dL (74-106); Potassium 3.7 mmol/L (3.5-5.1); Sodium Level 139 mmol/L (136-145)
[2020-09-17 07:32] VITALS: O2SAT 95
[2020-09-17 07:50] VITALS: BP 120/84; PULSE 61; RESP 14; TEMP 36.7; O2SAT 100
[2020-09-17] MEDS: Aspirin E.C. 81 MG Tablet PO (08:01)
[2020-09-17] MEDS: Glimepiride 4 MG Tablet PO (08:01)
--- NOTE | 2020-09-17 09:53 | PCM.DC ---
Discharge Instructions Diet Discharge Diet: Low fat / Low cholesterol and 1800 Calorie Control Diet Activity Discharge Activity: May Not Drive (x 1 day), May Shower (Today) and May Take a Tub Bath (in 7 Days) May resume sexual activity in: 1-2 weeks Weight Bearing Status: - (avoid heavy exertional activity x 1 - 2 weeks) Dressing / Incision Call your doctor if your incision/area has: Continuous Slow Oozing, Sudden Increased Bleeding, Increased Pain/ Swelling, Increased Redness, Foul Smelling Discharge and Swelling at the incision site Call your doctor if you observe: Fever of 101 or Higher, Shortness of breath, Fainting spells, Swelling in the ankles, Chest pain and Increased palpitations (irregular heartbeat) Cleanse incision/area with: Soap & Water Follow Up Care Please Follow Up With: Colt Zimmerman MD When: 10/07/2020 @ 11:00 AM Test Results: Test results from this visit will be discussed in further detail at your follow-up appointment, if applicable. Discharge Plan Admission Admit Date/Time: 09/15/20 12:40 Primary Reason for Your Visit: Cardiac Catheterization Attending Provider: Colt Zimmerman Primary Care Provider: Marisela Minaya Consulting Providers: Ruddy Ware ; Lennox Bradford ; Loni Corrigan CASK MAKER Instructions Patient Instructions: CAD Discharge Orders/Prescriptions Prescriptions: New furosemide 40 mg Tablet 40 mg PO DAILY Qty: 30 RF: 3 carvedilol 6.25 mg Tablet 6.25 mg PO BID Qty: 60 RF: 3 Brilinta 90 mg Tablet 90 mg PO BID Qty: 60 RF: 11 nitroglycerin 0.4 mg tablet, sublingual 0.4 mg sublingual Q5M PRN (Reason: chest pain) Qty: 25 RF: 3 Continued lisinopril 10 mg tablet 10 mg PO BID RF: 0 potassium chloride 20 mEq tablet extended release 20 meq PO DAILY Qty: 30 RF: 3 aspirin 81 mg tablet,chewable 81 mg PO DAILY Qty: 1 RF: 0 metformin 1,000 mg tablet 1,000 mg PO DAILY RF: 0 glimepiride 4 mg tablet 4 mg PO BID RF: 0 levothyroxine 25 mcg tablet 25 mcg PO DAILY RF: 0 pravastatin 80 mg tablet 80 mg PO QHS RF: 0 nitroglycerin [Nitro-Dur] 0.1 mg/hr patch 24 hour 1 patch transdermal Q24H RF: 0 Discontinued atenolol 25 mg tablet 25 mg PO DAILY RF: 0 Hold Instructions: Order Changed No Action carvedilol [Coreg] 3.125 mg tablet 3.125 mg PO BID Qty: 60 RF: 3 furosemide 20 mg tablet 20 mg PO DAILY Qty: 30 RF: 3 Referrals / Follow Up: Marisela Minaya DO [Primary Care Provider] - Colt Zimmerman MD [STAFF PHYSICIAN] -
[2020-09-17] MEDS: Lisinopril 10 MG Tablet PO (09:57)
[2020-09-17] MEDS: TICAGRELOR 90 MG TABLET PO (09:57)
[2020-09-17] MEDS: Furosemide 40 MG Tablet PO (09:57)
[2020-09-17] MEDS: Potassium Chloride Oral Tablet 20 MEQ PO (09:57)
[2020-09-17 09:59] VITALS: BP 139/68; PULSE 67
--- NOTE | 2020-09-17 10:00 | EKG12_ITS ---
Test Reason : AM EKG Blood Pressure : / mmHG Vent. Rate : 075 BPM Atrial Rate : 075 BPM P-R Int : 162 ms QRS Dur : 146 ms QT Int : 470 ms P-R-T Axes : 032 -25 138 degrees QTc Int : 524 ms Normal sinus rhythm Left bundle branch block Abnormal ECG Confirmed by AUSTYN KENNEDY, COLT ([id number]), fashion editor GERARD HAINES ([id number]) on 09/18/2020 9:15:22 AM Referred By: Colt Zaman Confirmed By:COLT ZAMAN MD
[2020-09-17] MEDS: Carvedilol 6.25 MG Tablet PO (10:01)
--- NOTE | 2020-09-17 19:10 | PCM.DC.SUM ---
Providers Date of Admission: 09/15/20 Date of Discharge: 09/17/20 Primary Care Physician: Dr. Marisela Minaya, DO Consultations 09/15/20 12:46 Consult: [employer] / Pulmonary Medicine Routine Consulting Provider: Pulmonary Medicine [place] Reason for Consult: CHF/Flash Pulmonary Edema EMERGENT Consult: Yes MD Notified: Yes Date Notified: 09/15/20 Time Notified: 12:46 Method of Notification: Text Reason For Visit: ABN STESS,ABN ECHO,CHEST PAIN,[place] Diagnosis Discharge Diagnosis (1) Flash pulmonary edema: Status: Acute Code(s): J81.0 - Acute pulmonary edema (2) Cardiomyopathy: Status: Acute Code(s): I42.9 - Cardiomyopathy, unspecified Qualifiers: Cardiomyopathy type: ischemic Qualified Code(s): I25.5 - Ischemic cardiomyopathy (3) CAD (coronary artery disease): Status: Acute Code(s): I25.10 - Atherosclerotic heart disease of [place] coronary artery without angina pectoris Qualifiers: Coronary Disease-Associated Artery/Lesion type: [place] artery [place] vs. transplanted heart: [place] heart (4) S/P PTCA (percutaneous transluminal coronary angioplasty): Status: Acute Code(s): Z98.61 - Coronary angioplasty status (5) Pure hypercholesterolemia: Status: Acute Code(s): E78.00 - Pure hypercholesterolemia, unspecified (6) Essential hypertension: Status: Acute Code(s): I10 - Essential (primary) hypertension Medications at Discharge Home Medications glimepiride 4 mg tablet 4 mg PO BID tab 07/31/20 levothyroxine 25 mcg tablet 25 mcg PO DAILY 07/31/20 metformin 1,000 mg tablet 1,000 mg PO DAILY 07/31/20 nitroglycerin 0.1 mg/hr transdermal 24 hour patch 1 patch TRANSDERMAL Q24H 07/31/20 pravastatin 80 mg tablet 80 mg PO QHS 07/31/20 lisinopril 10 mg tablet 10 mg PO BID tab 08/20/20 aspirin 81 mg PO DAILY 09/17/20 carvedilol 6.25 mg PO BID #60 tab 09/17/20 carvedilol [Coreg] 3.125 mg PO BID 09/17/20 furosemide 20 mg PO DAILY 09/17/20 furosemide 40 mg PO DAILY #30 tab 09/17/20 nitroglycerin 0.4 mg SUBLINGUAL Q5M PRN #25 tab 09/17/20 potassium chloride 20 meq PO DAILY 09/17/20 ticagrelor [Brilinta] 90 mg PO BID #60 tab 09/17/20 Hospital Course Procedures Cardiac catheterization and - (Cardiac Intervention) Summary of Care Provided Minutes Spent on Discharge: 60 Hospital Course: The patient presented to [facility] for outpatient diagnostic cardiac catheterization based upon concerns of ongoing symptoms and abnormal noninvasive cardiovascular imaging studies. She underwent diagnostic cardiac catheterization. The cardiac catheterization was noted to have angiographically significant appearing LAD disease and diminished LV systolic function. She subsequently underwent LAD PCI. She was returned to the PCU for further post procedure evaluation and care. While in the PCU she developed signs and symptoms compatible with post procedure related volume overload and flash pulmonary edema . She was evaluated and subsequently transferred to the ICU for continued evaluation care. She received medical therapy with IV diuretics, IV morphine, IV nitroglycerin, and transient BiPAP therapy. She was noted to have clinical improvement as the day and evening progressed. She was monitored overnight and on the following day appeared to be symptomatically improved. She was transferred back to the PCU for continued cardiovascular monitoring and medical therapy. There she was monitored and while in the PCU had notation of continued clinical improvement. She remained in sinus rhythm with one brief episode of accelerated idioventricular rhythm which was thought to be a reperfusion dysrhythmia related to her LAD PCI procedure. She continued with medical management. On this day. The patient was stable for release home for continued outpatient follow-up. Physical Exam Narrative The patient is awake and alert and short of breath/dyspneic. Const alert and oriented x3 Orientation / Consciousness: awake HEENT normocephalic, head/scalp atraumatic and hearing grossly normal bilaterally Eyes PERRL, EOMs intact bilaterally and conjunctivae normal Neck full ROM and supple Resp clear to auscultation bilaterally Auscultation: rales bilateral throughout Cardio regular rate, regular rhythm, S1 normal heart sound and S2 normal heart sound GI normal to inspection, nondistended, normoactive bowel sounds Extremity no pedal edema Peripheral Pulses: Yes radial pulses present right (No ecchymoses; no hematoma; no bruit) 2+ Skin no rashes or lesions noted Psych mental status grossly normal Weight / BMI Weight Weight: 182 lb 5.156 oz Body Mass Index (BMI) 37.7 ABG / Lab / Microbiology Data Result Diagrams: 09/16/20 04:30 09/17/20 06:30 Laboratory: Laboratory Results - last 24 hr 09/16/20 21:13: POC Glucose 152 H 09/17/20 06:30: Sodium 139, Potassium 3.7, Chloride 105, Carbon Dioxide 26.0, Anion Gap 8, BUN 29 H, Creatinine 1.00, Estim Creat Clear Calc 38.68, Est GFR (MDRD) Af Amer 71, Est GFR (MDRD) Non-Af 59 L, BUN/Creatinine Ratio 29.0 H, Glucose 187 H, Calcium 8.6 09/17/20 06:30: Magnesium 2.0 09/17/20 06:39: POC Glucose 204 H D/C Instructions Discharge Diet: Low fat / Low cholesterol and 1800 Calorie Control Diet May resume sexual activity in: 1-2 weeks Weight Bearing Status: - (avoid heavy exertional activity x 1 - 2 weeks) Call your doctor if your incision/area has: Continuous Slow Oozing, Sudden Increased Bleeding, Increased Pain/ Swelling, Increased Redness, Foul Smelling Discharge and Swelling at the incision site Call your doctor if you observe: Fever of 101 or Higher, Shortness of breath, Fainting spells, Swelling in the ankles, Chest pain and Increased palpitations (irregular heartbeat) Cleanse incision/area with: Soap & Water Please Follow Up With: Colt Zimmerman MD When: 10/07/2020 @ 11:00 AM Meaningful Use Info Meaningful Use Diagnoses (Choose all that apply): None applicable Discharge Plan Admission Admit Date/Time: 09/15/20 12:40 Primary Reason for Your Visit: Cardiac Catheterization Attending Provider: Colt Zimmerman Primary Care Provider: Marisela Minaya Consulting Providers: Ruddy Ware ; Lennox Bradford ; Loni Corrigan [employer] Instructions Patient Instructions: CAD Discharge Orders/Prescriptions Prescriptions: New furosemide 40 mg Tablet 40 mg PO DAILY Qty: 30 RF: 3 carvedilol 6.25 mg Tablet 6.25 mg PO BID Qty: 60 RF: 3 Brilinta 90 mg Tablet 90 mg PO BID Qty: 60 RF: 11 nitroglycerin 0.4 mg tablet, sublingual 0.4 mg sublingual Q5M PRN (Reason: chest pain) Qty: 25 RF: 3 Continued lisinopril 10 mg tablet 10 mg PO BID RF: 0 metformin 1,000 mg tablet 1,000 mg PO DAILY RF: 0 glimepiride 4 mg tablet 4 mg PO BID RF: 0 levothyroxine 25 mcg tablet 25 mcg PO DAILY RF: 0 pravastatin 80 mg tablet 80 mg PO QHS RF: 0 nitroglycerin [Nitro-Dur] 0.1 mg/hr patch 24 hour 1 patch transdermal Q24H RF: 0 Discontinued atenolol 25 mg tablet 25 mg PO DAILY RF: 0 Hold Instructions: Order Changed No Action carvedilol [Coreg] 3.125 mg tablet 3.125 mg PO BID RF: 0 aspirin 81 mg tablet,chewable 81 mg PO DAILY RF: 0 furosemide 20 mg tablet 20 mg PO DAILY RF: 0 potassium chloride 20 mEq tablet extended release 20 meq PO DAILY RF: 0 Referrals / Follow Up: Marisela Minaya DO [Primary Care Provider] - Colt Zimmerman MD [STAFF PHYSICIAN] - Disposition Discharge Orders: Discharge Patient (Routine); Ordered 09/17/20 Ordered By: Dr. Colt Zimmerman
== END 2020-09-17 12:21 | disposition home or self-care (01) | DRG 981 ==
LOC: ICU 18:01 → PCU 09-17 10:06 → ICU 09-17 11:16 → CLSP 09-17 11:16 → PCU 09-17 15:53
PROVIDERS: Internal Medicine Interventional Cardiology; Admitting Provider Internal Medicine Cardiovascular Disease; PCP Internal Medicine; Referring Provider Internal Medicine Cardiovascular Disease; Visit Provider Internal Medicine Cardiovascular Disease
DX: J95.89 Other postprocedural complications and disorders of respiratory system, not elsewhere classified (principal); J81.0 Acute pulmonary edema; J95.821 Acute postprocedural respiratory failure; Y84.0 Cardiac catheterization as the cause of abnormal reaction of the patient, or of later complication, without mention of misadventure at the time of the procedure; Y92.239 Unspecified place in hospital as the place of occurrence of the external cause; I25.118 Atherosclerotic heart disease of native coronary artery with other forms of angina pectoris; I25.5 Ischemic cardiomyopathy; I34.0 Nonrheumatic mitral (valve) insufficiency; I35.8 Other nonrheumatic aortic valve disorders; E11.65 Type 2 diabetes mellitus with hyperglycemia; I10 Essential (primary) hypertension; E78.5 Hyperlipidemia, unspecified; E03.9 Hypothyroidism, unspecified; K21.9 Gastro-esophageal reflux disease without esophagitis; E66.9 Obesity, unspecified; Z68.37 Body mass index [BMI] 37.0-37.9, adult; Z79.84 Long term (current) use of oral hypoglycemic drugs; Z79.02 Long term (current) use of antithrombotics/antiplatelets; Z79.82 Long term (current) use of aspirin; Z79.890 Hormone replacement therapy; Z79.899 Other long term (current) drug therapy; Z87.891 Personal history of nicotine dependence
CPT/HCPCS: 36415; 71045; 80048; 80053; 82962; 83735; 85025; 85027; 92928; 93005; 93458; 94002; 94003; 99152; 99153; J7040; Q9967; A4216; C1725; C1769; C1874; C1887; C1894; C9600; J1940

== ENCOUNTER → 2021-02-04 14:47 | Outpatient (CLI) | payer MEDICARE, SELFPAY ==
--- NOTE | 2021-02-04 14:50 | BI_ITS ---
MAMMOGRAPHY - BILATERAL SCREENING 3-D TOMOSYNTHESIS REASON FOR EXAM: Female, 70 years old. SCREENING PERTINENT HISTORY: No significant family history. TECHNIQUE: 2-D mammograms and 3-D Tomosynthesis of the breast (s) were performed. CAD was performed. COMPARISON: 01/21/2020 FINDINGS: The breast composition is composed of scattered fibroglandular density. Scattered benign calcifications are seen. No dense spiculated masses or suspicious microcalcifications are identified. No architectural distortion is identified. There is no skin thickening or retraction. There has been no significant change since the prior study. BI/SCRN MAMM (CAD)W/YOLANDA BILAT IMPRESSION: No mammographic signs of malignancy. Routine yearly mammograms recommended. ASSESSMENT CATEGORY: BIRADS Category 1: Negative. A letter regarding these results will be sent to the patient by the facility within 30 days. FOLLOW UP RECOMMENDATION: Yearly follow up mammogram recommended. (A) Approximately 10% of breast cancers are not detected by mammography. A normal mammogram should not delay biopsy of a clinically suspicious abnormality. Electronically Signed: Mark Banegas MD at 8:39 EST Tel , Service support ,
--- NOTE | 2021-02-04 14:53 | BD_ITS ---
STUDY: DUAL ENERGY X-RAY ABSORPTIOMETRY / DXA REASON FOR EXAM: Female, 70 years old. Z780 TECHNIQUE: Bone Mineral Density (BMD) measurements of lumbar spine and bilateral hips were obtained. COMPARISON: 12/11/2018 FINDINGS: Lumbar Spine (L1-L4): g/cm2 (1.110) / T-score (0.6) / Z-score (2.6) Findings are suggestive of normal bone density with a low fracture risk. Left Femur Total: g/cm2 (0.948) / T-score (0.1) / Z-score (1.5) Left Femoral Neck: g/cm2 (0.762) / T-score (-0.8) / Z-score (0.9) Right Femur Total: g/cm2 (0.990) / T-score (0.4) / Z-score (1.8) Right Femoral Neck: g/cm2 (0.812) / T-score (-0.3) / Z-score (1.4) BD/Dexa Bone Density Study IMPRESSION: The patient is considered normal as outlined below according to World [employer] Organization (WHO) criteria with a low fracture risk. There has been worsening of bone density since the previous examination. Reference Information: The T-score is the number of standard deviations above or below the standard which is normal for young adults at their peak bone mineral density. The World Health Organization (WHO) interprets the T-scores as follows: Above -1 Normal bone density Between -1 and -2.5 Osteopenia Equal to / or below -2.5 Osteoporosis As a practical clinical guideline, osteopenia may be graded as follows: Mild -1 through -1.5 Moderate -1.6 through -2.0 Severe -2.1 through -2.4 The Z-score is the number of standard deviations above or below age-matched controls. A Z-score of less than -1.5 would be considered abnormal. References: 1. NIH Osteoporosis and Related Bone Diseases www osteo.org 2. International Society for Clinical Densitometry www iscd.org 3. National Osteoporosis Foundation www nof.org Electronically Signed: Mark Banegas MD at 8:51 EST Tel , Service support ,
== END ==
PROVIDERS: PCP Internal Medicine; Referring Provider Internal Medicine; Visit Provider Internal Medicine
DX: Z12.31 Encounter for screening mammogram for malignant neoplasm of breast (principal); Z78.0 Asymptomatic menopausal state
CPT/HCPCS: 77063; 77067; 77080

== ENCOUNTER 2021-05-20 10:03 | Outpatient (CLI) | payer MEDICARE, SELFPAY ==
--- NOTE | 2021-05-20 10:08 | ECHOCS_ITS ---
Reason For Study: CMP Procedure This was a 2D Doppler, Color Flow transthoracic echocardiogram. The study was technically difficult. Due to body habitus. Contrast injection was performed. Exam performed in department. Left Ventricle Normal LV size. Mild segmental systolic dysfunction (see wall motion). The estimated ejection fraction is 45 %. Diastolic function is indeterminate. Mid-Anterior : Hypokinetic. Mid-Lateral : Hypokinetic. Mid-anteroseptal : Hypokinetic. [place] : Hypokinetic. Right Ventricle Normal RV size. Normal systolic function. Atria The left atrium is mildly enlarged. Normal right atrium. No doppler evidence for ASD. Mitral Valve There is moderate mitral annular calcification. Extension of the mitral annular calcification onto the base of the posterior mitral valve leaflet. Mild (1+) mitral valve insufficiency. Tricuspid Valve Normal tricuspid valve. Trivial tricuspid valve insufficiency. Unable to estimate RV systolic pressure/pulmonary artery pressure due to technically difficult study. Aortic Valve Trisinus/trileaflet aortic valve. Moderate focal aortic valve calcification. Trivial aortic valve insufficiency. Pulmonic Valve The pulmonic valve is not well visualized. Great Vessels Normal sized aortic root. Calcified aortic root. Pericardium/Pleural No pericardial effusion. Medication 22 gauge I.V. with prn adaptor inserted into right arm. Diluted definity 2.5ml given slow IV push to enhance endocardial definition. MMode/2D Measurements & Calculations LVIDd: 5.1 cm IVSd: 1.0 cm Ao root diam: 3.1 cm LVIDs: 3.6 cm LVPWd: 1.1 cm RVDd: 3.1 cm FS: 29.2 % LAV(MOD-bp): 79.5 ml LVAd ap4: 28.4 cm2 LVAd ap2: 30.3 cm2 LAV(MOD-bp) Indexed: 44.1 ml/m2 LVLd ap4: 7.8 cm LVLd ap2: 8.2 cm LAV(MOD-sp2): 77.9 ml EDV(MOD-sp4): 83.9 ml EDV(MOD-sp2): 93.3 ml LAV(MOD-sp4): 82.0 ml EDV(sp4-el): 87.9 ml EDV(sp2-el): 94.5 ml LVAs ap4: 18.1 cm2 LVAs ap2: 17.0 cm2 LVLs ap4: 7.1 cm LVLs ap2: 6.6 cm ESV(MOD-sp4): 37.3 ml ESV(MOD-sp2): 36.4 ml ESV(sp4-el): 39.4 ml ESV(sp2-el): 37.0 ml EF(MOD-sp4): 55.5 % EF(MOD-sp2): 61.0 % EF(sp4-el): 55.2 % SV(MOD-sp4): 46.6 ml SV(MOD-sp2): 56.9 ml SV(sp4-el): 48.5 ml LA A4 area: 23.4 cm2 LA dimension(2D): 4.3 cm RA A4 area: 13.0 cm2 Time Measurements MV dec time: 0.18 sec Doppler Measurements & Calculations MV E max paulina: 80.3 cm/sec Ao V2 max: 124.5 cm/sec AI max paulina: 333.6 cm/sec MV A max paulina: 108.4 cm/sec Ao max P.2 mmHg AI max P.6 mmHg MV E/A: 0.74 AI dec slope: 182.4 cm/sec2 AI P1/2t: 535.7 msec LV V1 max: 95.8 cm/sec PA V2 max: 94.6 cm/sec LV V1 max P.7 mmHg ECHO/Echo Complete W/ Contrast Interpretation Summary The study was technically difficult. Contrast injection was performed. Mild segmental systolic dysfunction (see wall motion). The estimated ejection fraction is 45 %. The left atrium is mildly enlarged. There is moderate mitral annular calcification. Extension of the mitral annular calcification onto the base of the posterior mi tral valve leaflet. Mild (1+) mitral valve insufficiency. Trivial tricuspid valve insufficiency. Moderate focal aortic valve calcification. Trivial aortic valve insufficiency. Calcified aortic root. Unable to estimate RV systolic pressure/pulmonary artery pressure due to techni naren difficult study. Diastolic function is indeterminate. Ordering Physician: Suly Alfaro Referring Physician: Marisela Minaya Performed By: Sindy Saenz RDCS, RVT
== END 2021-05-20 23:59 | disposition home or self-care (01) ==
LOC: CVS 10:07
PROVIDERS: PCP Internal Medicine; Referring Provider Nurse Practitioner Gerontology; Visit Provider Nurse Practitioner Gerontology
DX: I25.5 Ischemic cardiomyopathy (principal)
CPT/HCPCS: 93306; Q9957; A4216; C8929

== ENCOUNTER 2021-09-27 16:23 | Emergency (ER) | payer MEDICARE, SELFPAY ==
[2021-09-27 16:23] VITALS: PULSE 63; RESP 18; TEMP 36; O2SAT 93; BMI 34.4
[2021-09-27 16:27] VITALS: BP 147/69; PULSE 58; RESP 18; O2SAT 97
[2021-09-27] MEDS: Glucagon 1 MG/ML Syringe IM (16:30)
[2021-09-27] MEDS: Dextrose 50%-Water 25 GM/50 ML DISP.SYRIN IV (16:31)
--- NOTE | 2021-09-27 16:32 | EX.ED.DYSGE1 ---
HPI History of Present Illness Chief Complaint: Hypoglycemia Detail of Chief Complaint: Unresponsive Informant: patient and family Narrative Narrative: Patient presents to the ER with . Nursing staff had to remove the patient from the vehicle as she was unresponsive. He had advised nursing staff that she was diabetic and when checked her blood sugar was 35. Patient received 1 mg of IM glucagon and IV line was started and given an amp of D50. Following medication patient is alert and can answer questions. She states that she is a diabetic and takes oral pills, no insulin. She states she did take all of her medication today but only had 1 small [place] candy bar to eat. [facility] Medical History Abnormal echocardiogram Abnormal stress test Atherosclerotic heart disease of [place] coronary artery without angina pectoris CAD (coronary artery disease) Cardiomyopathy Decreased cardiac ejection fraction Dyspnea Essential hypertension GERD (gastroesophageal reflux disease) Hypothyroidism LBBB (left bundle branch block) Presence of stent in coronary artery (~09/15/20) Pure hypercholesterolemia Type 2 diabetes mellitus Home Medications glimepiride 4 mg tablet 4 mg PO BID diabetes 07/31/20 [History Last Taken Unknown] metformin 1,000 mg tablet 1,000 mg PO DAILY diabetes 07/31/20 [History Last Taken Unknown] pravastatin 80 mg tablet 80 mg PO QHS cholesterol 07/31/20 [History Last Taken Unknown] lisinopril 10 mg tablet 10 mg PO BID blood pressure 08/20/20 [History Last Taken Unknown] aspirin 81 mg chewable tablet 81 mg PO DAILY heart health 09/17/20 [History Last Taken Unknown] nitroglycerin 0.4 mg sublingual tablet 0.4 mg sublingual Q5M PRN chest pain #25 tabs 09/17/20 [Rx Last Taken Unknown] potassium chloride 20 mEq tablet,extended release 20 meq PO DAILY supplement 09/17/20 [History Last Taken Unknown] clopidogrel 75 mg tablet (Plavix) 75 mg PO DAILY #94 tabs 12/01/20 [Rx Last Taken Unknown] furosemide 40 mg tablet 40 mg PO DAILY #90 tabs 01/25/21 [Rx Last Taken Unknown] empagliflozin 25 mg tablet (Jardiance) 25 mg PO DAILY 04/16/21 [History Last Taken Unknown] levothyroxine 25 mcg tablet 50 mcg PO DAILY thyroid 04/16/21 [History Last Taken Unknown] carvedilol 25 mg tablet 25 mg PO BID 06/18/21 [History Last Taken Unknown] Allergy/AdvReac Type Severity Reaction Status Date / Time No Known Allergies Allergy Verified 09/27/21 16:26 Family History Mother CVA (cerebral vascular accident), Onset Age: 67 Brother Myocardial infarction, Onset Age: 50 Father Cancer, Onset Age: 57 Surgical History H/O total hysterectomy with bilateral salpingo-oophorectomy (BSO) History of cholecystectomy History of repair of right rotator cuff Presence of coronary angioplasty implant and graft (~09/15/20) S/P PTCA (percutaneous transluminal coronary angioplasty) Social History Smoking Status: Never smoker alcohol intake: current alcohol intake frequency: holidays/special occasions only substance use type: does not use caffeine: Yes Type: carbonated beverages Number of servings: 1 and coffee Number of servings: 4 ROS ROS ED Constitutional Constitutional ED: Denies chills or fever(s) Eyes Eyes: Denies change in vision or discharge from eye(s) ENT ENT ED: Denies discharge from eye(s), rhinorrhea or sore throat Cardiovascular Cardiovascular: Denies chest pain or palpitations Respiratory/Chest Respiratory/Chest: Denies cough or dyspnea Gastrointestinal Gastrointestinal: Denies abdominal pain, diarrhea, nausea or vomiting Genitourinary Genitourinary ED: Denies difficulty urinating or dysuria Musculoskeletal Musculoskeletal: Denies back pain or extremity pain Integumentary Denies Abrasions or rash Neurologic Neurologic: Denies headache(s) or weakness Allergic/Immunologic Allergic/Immunologic ED: Denies lip swelling or urticaria EXAM Physical Exam Const Vital Signs: 09/27/21 16:23 09/27/21 16:27 09/27/21 16:32 Temperature 96.8 F L Temperature Source Temporal Pulse Rate 63 58 L Respiratory Rate 18 18 Respiratory Effort Normal Non-Labored Respiratory Pattern Normal Blood Pressure 147/69 H Blood Pressure Mean 95 Pulse Ox 93 97 Oxygen Delivery Method Room Air Room Air 09/27/21 18:00 Temperature Temperature Source Pulse Rate 70 Respiratory Rate 15 Respiratory Effort Respiratory Pattern Blood Pressure 110/61 Blood Pressure Mean 77 Pulse Ox 96 Oxygen Delivery Method Room Air Positive well nourished and well developed General Appearance ED: well developed HEENT Reports normocephalic and head/scalp atraumatic Eyes PERRL and EOMs intact bilaterally Neck supple Chest Wall inspection of chest normal and palpation of chest normal Resp normal respiratory effort and clear to auscultation bilaterally Cardio regular rate and regular rhythm GI normal to inspection, nondistended, normoactive bowel sounds Palpation: soft Extremity normal to inspection Neuro oriented x3 and no sensory deficits noted Sensorium / Orientation: alert Motor Exam: strength 5/5 throughout Psych mental status grossly normal Skin no rashes or lesions noted MDM MDM MDM Narrative Medical decision making narrative: Patient was given glucagon as well as an amp of D50. Patient is alert and answering questions. Lab work obtained and patient given p.o. diet. Lab Data Labs: Laboratory Results - last 24 hr 09/27/21 09/27/21 09/27/21 16:36 16:36 17:05 WBC 13.6 H RBC 4.23 Hgb 12.8 Hct 38.9 MCV 92.0 MCH 30.3 MCHC 32.9 RDW Std Deviation 46.4 H RDW Coeff of Diana 13.7 Plt Count 158 MPV 12.3 H Immature Gran % (Auto) 0.400 Neut % (Auto) 81.7 H Lymph % (Auto) 10.3 L [place] % (Auto) 6.9 Eos % (Auto) 0.4 Baso % (Auto) 0.3 Absolute Neuts (auto) 11.1 H Absolute Lymphs (auto) 1.40 Nucleated RBC % 0 Sodium 138 Potassium 4.3 Chloride 109 H Carbon Dioxide 26.0 Anion Gap 3 L BUN 25 H Creatinine 1.54 H Estim Creat Clear Calc 27.27 Est GFR (MDRD) Af Amer 43 L Est GFR (MDRD) Non-Af 36 L BUN/Creatinine Ratio 16.2 Glucose 476 H* Calcium 8.5 POC Glucose 182 H 09/27/21 18:02 WBC RBC Hgb Hct MCV MCH MCHC RDW Std Deviation RDW Coeff of Diana Plt Count MPV Immature Gran % (Auto) Neut % (Auto) Lymph % (Auto) [place] % (Auto) Eos % (Auto) Baso % (Auto) Absolute Neuts (auto) Absolute Lymphs (auto) Nucleated RBC % Sodium Potassium Chloride Carbon Dioxide Anion Gap BUN Creatinine Estim Creat Clear Calc Est GFR (MDRD) Af Amer Est GFR (MDRD) Non-Af BUN/Creatinine Ratio Glucose Calcium POC Glucose 228 H Treatment and Re-Evaluation Narrative: Lab work reveals white count of 13.6. Does appear that she is had an elevated white count recently, this is improving. Blood glucose on the lab work is reported at 476, however this was drawn from the IV shortly after the amp of D50 was pushed. Fingerstick blood sugars have remained over 180 for the last couple hours. Patient is alert and conversant with family. She be discharged home. She was advised that if she takes her oral diabetes medication she must eat even if she is not hungry. Discharge Plan Triage Chief Complaint: Hypoglycemia ED Provider: Eva Cm Dx/Rx/DC Orders Clinical Impression: Hypoglycemia Instructions: ED Hypoglycemia Oral Diabetic ... Prescriptions: No Action lisinopril 10 mg tablet 10 mg PO BID metformin 1,000 mg tablet 1,000 mg PO DAILY glimepiride 4 mg tablet 4 mg PO BID pravastatin 80 mg tablet 80 mg PO QHS levothyroxine 25 mcg tablet 50 mcg PO DAILY clopidogrel [Plavix] 75 mg tablet 75 mg PO DAILY Qty: 94 3RF Rx Instructions: Loading dose: 300mg (4 pills) on day 1, and then 75mg (1 pill) daily Jardiance 25 mg tablet 25 mg PO DAILY carvedilol 25 mg tablet 25 mg PO BID nitroglycerin 0.4 mg tablet, sublingual 0.4 mg sublingual Q5M PRN (Reason: chest pain) Qty: 25 3RF Rx Instructions: do not exceed 3 doses per episode aspirin 81 mg tablet,chewable 81 mg PO DAILY potassium chloride 20 mEq tablet extended release 20 meq PO DAILY furosemide 40 mg tablet 40 mg PO DAILY Qty: 90 3RF Primary Care Provider: Marisela Minaya Referrals: Marisela Minaya DO [Primary Care Provider] - As Needed Disposition Disposition: Home, Self Care
[2021-09-27 16:46] LABS: Absolute Neutrophil Count 11.1 X10^3/uL (2.0-7.7); Basophil# 0.04 X10^3/uL; Basophil% 0.3 % (0-1); Eosinophil# 0.06 X10^3/uL; Eosinophils% 0.4 % (0-5); Hematocrit 38.9 % (37-47); Hemoglobin 12.8 g/dL (12.0-15.0); Lymphocyte % 10.3 % (19-41); Mean Corp Hgb Conc 32.9 g/dL (32-36); Mean Corpuscular Hgb 30.3 pg (27.0-32.0); Mean Platelet Vol. 12.3 fl (6.2-12.0); Monocyte# 0.94 X10^3/uL; Monocyte% 6.9 % (0-10); NRBC Flagged by Analyzer 0 % (0-5); Neutrophil % 81.7 % (47-70); Platelet Count 158 K/mm3 (150-450); RBC Distribution Width CV 13.7 % (11.6-14.6); RBC Distribution Width SD 46.4 fl (35.1-43.9); Red Blood Count 4.23 M/mm3 (4.2-5.4); White Blood Count 13.6 K/mm3 (4.4-11.0)
[2021-09-27 17:11] LABS: Anion Gap 3 (5-15); BUN 25 mg/dL (7-18); BUN/Creat Ratio 16.2 RATIO (10-20); Calcium,Total 8.5 mg/dL (8.5-10.1); Chloride 109 mmol/L (98-107); Creatinine, Serum 1.54 mg/dL (0.55-1.02); EST Glomerular Filtration Rate 36 mL/min (>60); Est Glom Filt Rate - Afr Amer 43 mL/min (>60); Estimated Creatinine Clearance 27.27 ml/min; Glucose 476 mg/dL (74-106); Potassium 4.3 mmol/L (3.5-5.1); Sodium Level 138 mmol/L (136-145)
[2021-09-27 17:25] LABS: Bedside Glucose 182 mg/dL (74-106)
[2021-09-27 18:00] VITALS: BP 110/61; PULSE 70; RESP 15; O2SAT 96
[2021-09-27 18:20] LABS: Bedside Glucose 228 mg/dL (74-106)
[2021-09-27 19:00] VITALS: RESP 18
[2021-09-27 19:01] VITALS: RESP 18
[2021-09-27 19:21] LABS: Bedside Glucose 219 mg/dL (74-106)
[2021-09-28 07:15] LABS: Bedside Glucose 35 mg/dL (74-106)
== END 2021-09-27 19:07 | disposition home or self-care (01) ==
PROVIDERS: Emergency Provider Emergency Medicine; PCP Internal Medicine; Visit Provider Emergency Medicine
DX: E11.649 Type 2 diabetes mellitus with hypoglycemia without coma (principal); I42.9 Cardiomyopathy, unspecified; I25.10 Atherosclerotic heart disease of native coronary artery without angina pectoris; I10 Essential (primary) hypertension; E78.00 Pure hypercholesterolemia, unspecified; K21.9 Gastro-esophageal reflux disease without esophagitis; Z79.84 Long term (current) use of oral hypoglycemic drugs; E03.9 Hypothyroidism, unspecified; Z79.82 Long term (current) use of aspirin; Z79.02 Long term (current) use of antithrombotics/antiplatelets; Z79.890 Hormone replacement therapy; Z95.5 Presence of coronary angioplasty implant and graft
CPT/HCPCS: 80048; 82962; 85025; 96372; 96374; 99284; A4216; J1610

== ENCOUNTER 2021-09-28 13:09 | Emergency (ER) | payer MEDICARE, SELFPAY ==
[2021-09-28 13:10] VITALS: BP 147/123; PULSE 71; RESP 16; TEMP 37.1; O2SAT 97; BMI 36.4
[2021-09-28 13:20] VITALS: BP 126/88; PULSE 71; RESP 15; O2SAT 98
[2021-09-28 13:51] LABS: Bedside Glucose 202 mg/dL (74-106)
--- NOTE | 2021-09-28 14:04 | EDS_ITS ---
HPI History of Present Illness Chief Complaint: Hypoglycemia Narrative Narrative: Patient presents via EMS with hypoglycemia. She states that she was seen in the emergency department for the same thing yesterday. She reportedly went home and did not eat. She went to bed at 10 PM but took her nighttime medications. She has past medical history of type 2 diabetes and is on oral medications. She states she awoke in the morning but did not take any of her pills and has not eaten all day. Her family went to check on her at around 11:00 and she did not remember them being present. They state that they were having difficulty awakening her. They called EMS and she had blood sugar in the 30s. She was administered glucagon intramuscularly and D10 resulting in micro blood sugar above 200 and feels back to normal. She told the RN that she usually does not snack when she takes her medications at bedtime, but had eaten applesauce and a turkey sandwich when she was here in the emergency department yesterday. She denies any fevers or chills. No nausea or vomiting. No dysuria. No chest pain. No other symptoms. [facility] Medical History Abnormal echocardiogram Abnormal stress test Atherosclerotic heart disease of [place] coronary artery without angina pectoris CAD (coronary artery disease) Cardiomyopathy Decreased cardiac ejection fraction Dyspnea Essential hypertension GERD (gastroesophageal reflux disease) Hypothyroidism LBBB (left bundle branch block) Presence of stent in coronary artery (~09/15/20) Pure hypercholesterolemia Type 2 diabetes mellitus Home Medications glimepiride 4 mg tablet 4 mg PO BID diabetes 07/31/20 [History Last Taken Unknown] metformin 1,000 mg tablet 1,000 mg PO DAILY diabetes 07/31/20 [History Last Taken Unknown] pravastatin 80 mg tablet 80 mg PO QHS cholesterol 07/31/20 [History Last Taken Unknown] lisinopril 10 mg tablet 10 mg PO BID blood pressure 08/20/20 [History Last Taken Unknown] aspirin 81 mg chewable tablet 81 mg PO DAILY heart health 09/17/20 [History Last Taken Unknown] nitroglycerin 0.4 mg sublingual tablet 0.4 mg sublingual Q5M PRN chest pain #25 tabs 09/17/20 [Rx Last Taken Unknown] potassium chloride 20 mEq tablet,extended release 20 meq PO DAILY supplement 09/17/20 [History Last Taken Unknown] clopidogrel 75 mg tablet (Plavix) 75 mg PO DAILY #94 tabs 12/01/20 [Rx Last Taken Unknown] furosemide 40 mg tablet 40 mg PO DAILY #90 tabs 01/25/21 [Rx Last Taken Unknown] empagliflozin 25 mg tablet (Jardiance) 25 mg PO DAILY 04/16/21 [History Last Taken Unknown] levothyroxine 25 mcg tablet 50 mcg PO DAILY thyroid 04/16/21 [History Last Taken Unknown] carvedilol 25 mg tablet 25 mg PO BID 06/18/21 [History Last Taken Unknown] cephalexin 500 mg capsule 500 mg PO Q12 #14 caps 09/28/21 [Rx Last Taken Unknown] Allergy/AdvReac Type Severity Reaction Status Date / Time No Known Allergies Allergy Verified 09/27/21 16:26 Family History Mother CVA (cerebral vascular accident), Onset Age: 67 Brother Myocardial infarction, Onset Age: 50 Father Cancer, Onset Age: 57 Surgical History H/O total hysterectomy with bilateral salpingo-oophorectomy (BSO) History of cholecystectomy History of repair of right rotator cuff Presence of coronary angioplasty implant and graft (~09/15/20) S/P PTCA (percutaneous transluminal coronary angioplasty) Social History Smoking Status: Former smoker alcohol intake: current alcohol intake frequency: holidays/special occasions only substance use type: does not use caffeine: Yes Type: carbonated beverages Number of servings: 1 and coffee Number of servings: 4 ROS ROS ED ROS Narrative Constitutional: No fever, no chills. HEENT: No sore throat. No neck pain. No loss of vision. No rhinorrhea. Cardiovascular: No chest pain. No palpitations. No pedal edema. Respiratory: No cough, no shortness of breath. Abdominal: No abdominal pain. No nausea. No vomiting. Genitourinary: No dysuria. No hematuria. Musculoskeletal: No myalgias. No arthralgias. Neurologic: No headaches. No dizziness. No lightheadedness. Difficulty awakening patient this afternoon. Skin: No rash. No change in color. Psychiatric: No depression. No anxiety. EXAM Physical Exam Narrative Exam Narrative: Afebrile. Vital signs noted. HEENT: Normocephalic. Atraumatic. PERRL, EOMI. Neck soft and supple. No point tenderness or step off. Cardiovascular: Regular rate and rhythm. No murmurs, rubs, or gallops appreciated. Respiratory: No tachypnea. Lungs clear to auscultation bilaterally. Gastrointestinal: Abdomen soft, nontender, with normoactive bowel sounds. No rebound or guarding. Neurological: Awake. Alert. Nonfocal, nonlateralizing. Skin: No rash. Normal color. No pallor. Musculoskeletal: No pedal edema. Full range of motion extremities. Const Vital Signs: 09/28/21 13:10 09/28/21 13:20 09/28/21 15:30 Temperature 98.7 F Temperature Source Temporal Pulse Rate 71 71 73 Respiratory Rate 16 15 16 Blood Pressure 147/123 H 126/88 H 133/110 H Blood Pressure Mean 131 100 117 Pulse Ox 97 98 97 Oxygen Delivery Method Room Air Room Air Room Air MDM MDM MDM Narrative Medical decision making narrative: [id number] glucose appropriately elevated at 202. She will be given a p.o. challenge/diet again. I do think that her hypoglycemia is secondary to her taking her nighttime medications yesterday and not eating at all before going to bed. I will check her baseline labs of CBC and CMP and a urinalysis. I reviewed her prior EMR. She had been told that she must eat even when not hungry when taking her medications for her diabetes. Patient has elevated white count of 18.6 which I think is nonspecific, hemoglobin normal at 13.3, hematocrit 39.0. Electrolyte panel shows normal sodium of 141 with normal potassium of 4.4, chloride 112. BUN elevated at 33 with a creatinine of 1.61. Glucose is appropriately elevated to 22 with a normal anion gap of 6. LFTs are otherwise unremarkable. She is positive for nitrites on her urinalysis with 10-25 WBCs. I will treat this as a cystitis, but she is asymptomatic. She was given her first dose of Keflex here in the emergency department and a prescription written to take twice a day for the next week. She was able to eat meatloaf, mashed potatoes, and peas here. I again instructed her to eat a meal when she gets home and perhaps even skip her nighttime medications this evening and follow-up with her primary care physician in the next 1 to 2 days. I will recheck her [id number] glucose prior to her discharge. As long as it is acceptable, she will be discharged to follow-up. She was reminded to eat 3 square meals a day as she is taking antihyperglycemic medications for her diabetes. Disposition is discharged home in stable condition. Lab Data Attestation: I reviewed the patient's lab results. Labs: Laboratory Results - last 24 hr 09/28/21 09/28/21 09/28/21 13:26 14:05 14:05 WBC 18.6 H RBC 4.25 Hgb 13.3 Hct 39.0 MCV 91.8 MCH 31.3 MCHC 34.1 RDW Std Deviation 46.6 H RDW Coeff of Diana 13.6 Plt Count 145 L MPV 11.7 Immature Gran % (Auto) 0.700 Neut % (Auto) 86.9 H Lymph % (Auto) 6.1 L Pine % (Auto) 5.6 Eos % (Auto) 0.4 Baso % (Auto) 0.3 Absolute Neuts (auto) 16.2 H Absolute Lymphs (auto) 1.13 Nucleated RBC % 0 Sodium 141 Potassium 4.4 Chloride 112 H Carbon Dioxide 23.0 Anion Gap 6 BUN 33 H Creatinine 1.61 H Estim Creat Clear Calc 23.69 Est GFR (MDRD) Af Amer 41 L Est GFR (MDRD) Non-Af 34 L BUN/Creatinine Ratio 20.5 H Glucose 222 H Calcium 8.7 Total Bilirubin 0.50 AST 26 ALT 29 Alkaline Phosphatase 74 Total Protein 6.9 Albumin 3.2 Globulin 3.7 Albumin/Globulin Ratio 0.9 Urine Color Urine Clarity Urine pH Ur Specific [place] Urine Protein Urine Glucose (UA) Urine Ketones Urine Occult Blood Urine Nitrite Urine Bilirubin Urine Urobilinogen Ur Leukocyte Esterase Urine RBC Urine WBC Ur Squamous Epith Cells Urine Bacteria Urine Mucus POC Glucose 202 H 09/28/21 14:55 WBC RBC Hgb Hct MCV MCH MCHC RDW Std Deviation RDW Coeff of Diana Plt Count MPV Immature Gran % (Auto) Neut % (Auto) Lymph % (Auto) Pine % (Auto) Eos % (Auto) Baso % (Auto) Absolute Neuts (auto) Absolute Lymphs (auto) Nucleated RBC % Sodium Potassium Chloride Carbon Dioxide Anion Gap BUN Creatinine Estim Creat Clear Calc Est GFR (MDRD) Af Amer Est GFR (MDRD) Non-Af BUN/Creatinine Ratio Glucose Calcium Total Bilirubin AST ALT Alkaline Phosphatase Total Protein Albumin Globulin Albumin/Globulin Ratio Urine Color Yellow Urine Clarity Sl. Cloudy Urine pH 5.0 Ur Specific [place] 1.015 Urine Protein 15 H Urine Glucose (UA) 1000 H Urine Ketones Negative Urine Occult Blood 10 H Urine Nitrite Positive H Urine Bilirubin Negative Urine Urobilinogen Normal Ur Leukocyte Esterase 100 H Urine RBC 0-5 SEEN Urine WBC 10-25 SEEN Ur Squamous Epith Cells 0-5 SEEN Urine Bacteria 4+ Urine Mucus 0 SEEN POC Glucose Discharge Plan Triage Chief Complaint: Hypoglycemia ED Provider: Jesus Solomon Dx/Rx/DC Orders Clinical Impression: Hypoglycemia associated with diabetes, Leukocytosis, Cystitis Instructions: ED Hypoglycemia Oral Diabetic ..., ED Cystitis Female Adult Prescriptions: New cephalexin 500 mg capsule 500 mg PO Q12 Qty: 14 0RF No Action lisinopril 10 mg tablet 10 mg PO BID metformin 1,000 mg tablet 1,000 mg PO DAILY glimepiride 4 mg tablet 4 mg PO BID pravastatin 80 mg tablet 80 mg PO QHS levothyroxine 25 mcg tablet 50 mcg PO DAILY clopidogrel [Plavix] 75 mg tablet 75 mg PO DAILY Qty: 94 3RF Rx Instructions: Loading dose: 300mg (4 pills) on day 1, and then 75mg (1 pill) daily Jardiance 25 mg tablet 25 mg PO DAILY carvedilol 25 mg tablet 25 mg PO BID nitroglycerin 0.4 mg tablet, sublingual 0.4 mg sublingual Q5M PRN (Reason: chest pain) Qty: 25 3RF Rx Instructions: do not exceed 3 doses per episode aspirin 81 mg tablet,chewable 81 mg PO DAILY potassium chloride 20 mEq tablet extended release 20 meq PO DAILY furosemide 40 mg tablet 40 mg PO DAILY Qty: 90 3RF Primary Care Provider: Marisela Minaya Referrals: Marisela Minaya DO [Primary Care Provider] - 1-2 Days if not improving Disposition Disposition: Home, Self Care
[2021-09-28 14:13] LABS: Absolute Lymphocyte Count 1.13 X10^3/uL (0.83-4.51); Absolute Neutrophil Count 16.2 X10^3/uL (2.0-7.7); Basophil# 0.05 X10^3/uL; Basophil% 0.3 % (0-1); Eosinophil# 0.08 X10^3/uL; Eosinophils% 0.4 % (0-5); Hemoglobin 13.3 g/dL (12.0-15.0); Lymphocyte # 1.13 X10^3/ul (0.83-4.51); Lymphocyte % 6.1 % (19-41); Mean Corp Hgb Conc 34.1 g/dL (32-36); Mean Corpuscular Hgb 31.3 pg (27.0-32.0); Mean Corpuscular Volume 91.8 fL (81-99); Mean Platelet Vol. 11.7 fl (6.2-12.0); Monocyte# 1.04 X10^3/uL; Monocyte% 5.6 % (0-10); NRBC Flagged by Analyzer 0 % (0-5); Neutrophil # 16.15 X10^3/uL (2.7-7.7); Neutrophil % 86.9 % (47-70); Platelet Count 145 K/mm3 (150-450); RBC Distribution Width CV 13.6 % (11.6-14.6); RBC Distribution Width SD 46.6 fl (35.1-43.9); Red Blood Count 4.25 M/mm3 (4.2-5.4); White Blood Count 18.6 K/mm3 (4.4-11.0)
[2021-09-28 14:33] LABS: ALB/GLOB Ratio 0.9 RATIO (0.9-2.4); AST(SGOT) 26 U/L (15-37); Alanine Aminotransfer ALT/SGPT 29 U/L (13-56); Albumin, Serum 3.2 g/dL (3.2-5.0); Alkaline Phosphatase 74 U/L (45-117); Anion Gap 6 (5-15); BUN 33 mg/dL (7-18); BUN/Creat Ratio 20.5 RATIO (10-20); Calcium,Total 8.7 mg/dL (8.5-10.1); Chloride 112 mmol/L (98-107); Creatinine, Serum 1.61 mg/dL (0.55-1.02); EST Glomerular Filtration Rate 34 mL/min (>60); Est Glom Filt Rate - Afr Amer 41 mL/min (>60); Estimated Creatinine Clearance 23.69 ml/min; Globulin 3.7 g/dL (2.2-4.2); Glucose 222 mg/dL (74-106); Potassium 4.4 mmol/L (3.5-5.1); Protein, Total 6.9 g/dL (6.4-8.2); Sodium Level 141 mmol/L (136-145)
[2021-09-28 15:01] LABS: Mucous, Urine 0 SEEN /hpf (<or=2+)
[2021-09-28 15:05] LABS: Color, Urine Yellow (Yellow); Glucose, Dipstick 1000 mg/dl (Normal); Ketone-Dipstick Negative (Negative); Leukocyte Esterase-Dipstick 100 /ul (Negative); Nitrite-Dipstick Positive (Negative); Occult Blood-Urine 10 /ul (Negative); Protein-Dipstick 15 mg/dl (Negative); Specific Gravity, Urine 1.015 (1.002-1.030); Urine Bilirubin Dipstick Negative (Negative); Urine Clarity Sl. Cloudy (Clear); Urine Urobilinogen Normal (Normal)
[2021-09-28 15:14] LABS: White Blood Cells 10-25 SEEN /hpf (0-5)
[2021-09-28 15:15] LABS: Bacteria 4+ /hpf (None Seen); Red Blood Cells-Urine 0-5 SEEN /hpf (0-5); Squamous Epithelial Cells - UA 0-5 SEEN /hpf (5-10)
[2021-09-28 15:30] VITALS: BP 133/110; PULSE 73; RESP 16; O2SAT 97
[2021-09-28] MEDS: Cephalexin 250 MG Capsule 500 MG PO (16:35)
[2021-09-28 16:54] VITALS: BP 128/73; PULSE 65; RESP 16; O2SAT 98
== END 2021-09-28 17:03 | disposition home or self-care (01) ==
PROVIDERS: Emergency Provider Emergency Medicine; PCP Internal Medicine; Visit Provider Emergency Medicine
DX: E11.649 Type 2 diabetes mellitus with hypoglycemia without coma (principal); N30.90 Cystitis, unspecified without hematuria; I42.9 Cardiomyopathy, unspecified; I25.10 Atherosclerotic heart disease of native coronary artery without angina pectoris; D72.829 Elevated white blood cell count, unspecified; I10 Essential (primary) hypertension; E78.00 Pure hypercholesterolemia, unspecified; E03.9 Hypothyroidism, unspecified; K21.9 Gastro-esophageal reflux disease without esophagitis; Z79.84 Long term (current) use of oral hypoglycemic drugs; Z79.82 Long term (current) use of aspirin; Z79.02 Long term (current) use of antithrombotics/antiplatelets; Z79.890 Hormone replacement therapy; Z79.899 Other long term (current) drug therapy; Z87.891 Personal history of nicotine dependence; Z95.5 Presence of coronary angioplasty implant and graft
CPT/HCPCS: 80053; 81001; 82962; 85025; 99285

== ENCOUNTER → 2021-11-03 | Outpatient (CLI) | payer MEDICARE, SELFPAY ==
--- NOTE | 2021-11-03 08:09 | CT_ITS ---
Weakness STUDY: CT BRAIN WITHOUT CONTRAST REASON FOR EXAM: Female, 71 years old. WEAKNESS RADIATION DOSAGE (If Supplied By Facility): CTDIvol = ( 44.99 ) mGy, DLP = ( 796.11 ) mGycm TECHNIQUE: Transaxial CT imaging of the brain was performed without administration of intravenous contrast material. Individualized dose optimization techniques were used for this CT. COMPARISON: No relevant priors. FINDINGS: Normal soft tissue structures. Normal calvarium. Normal size ventricles and extra-axial spaces for the patient''s age. Normal white matter tracts of the cerebral hemispheres. Normal basal ganglia and thalami. Normal brainstem. Normal cerebellum. There is no intracranial hemorrhage. There are no findings of an acute ischemic infarction. Normal visualized paranasal sinuses. CT/Brain/Head without Contrast IMPRESSION: Chronic involutional changes of the brain. No acute hemorrhage Electronically Signed: Brayan Chapin MD at 8:34 EDT ,
== END | disposition home or self-care (01) ==
LOC: CT 08:08
PROVIDERS: PCP Internal Medicine; Referring Provider Internal Medicine; Visit Provider Internal Medicine
DX: R29.898 Other symptoms and signs involving the musculoskeletal system (principal)
CPT/HCPCS: 70450

== ENCOUNTER → 2021-11-04 | Outpatient (CLI) | payer MEDICARE, SELFPAY ==
--- NOTE | 2021-11-04 15:56 | US_ITS ---
STUDY: RENAL ULTRASOUND - COMPLETE REASON FOR EXAM: Female, 71 years old. Acute renal insufficiency. TECHNIQUE: Ultrasound evaluation of the kidneys was performed with real-time and static palma-scale imaging. COMPARISON: None. FINDINGS: RIGHT KIDNEY: Normal location of the right kidney, which is normal in size. The right kidney measures 9.9 cm. There is a normal cortex of the right kidney. The renal cortex measures 1.3 cm. There is no right renal mass or cyst. There are no right renal calculi. There is no right hydronephrosis. DISTAL RIGHT URETER: There is non-visualization of the distal right ureter. There is no demonstrated right ureterovesical junction calculus. There is no demonstrated right ureteral jet. LEFT KIDNEY: Normal location of the left kidney, which is normal in size. The left kidney measures 11.4 cm. There is a normal cortex of the left kidney. The renal cortex measures 2.0 cm. There is no left renal mass or cyst. There are no left renal calculi. There is no left hydronephrosis. DISTAL LEFT URETER: There is non-visualization of the distal left ureter. There is no demonstrated left ureterovesical junction calculus. There is no demonstrated left ureteral jet. BLADDER: The distended urinary bladder has a volume of 300 ml. The empty urinary bladder has a volume of 28 ml. There is a normal wall thickness of the distended urinary bladder. There is no demonstrated mass within the urinary bladder. There are no demonstrated bladder calculi. US/Kidney and Bladder IMPRESSION: Normal ultrasound of the kidneys and urinary bladder. Electronically Signed: Raj Wilkerson DO at 17:16 EDT ,
== END | disposition home or self-care (01) ==
LOC: US 15:54
PROVIDERS: PCP Internal Medicine; Referring Provider Internal Medicine; Visit Provider Internal Medicine
DX: N28.9 Disorder of kidney and ureter, unspecified (principal)
CPT/HCPCS: 76770

== ENCOUNTER → 2021-11-19 | Outpatient (CLI) | payer MEDICARE, SELFPAY ==
--- NOTE | 2021-11-19 09:59 | CDU_ITS ---
Reason For Study: Weakness RUE Rt. Velocities/BP Lt. Velocities/BP Prox CCA 57.9/7.8 cm/sec. Prox CCA 61.3/13.3 cm/sec. Mid CCA 43.7/10.7 cm/sec. Mid CCA 56.1/13.3 cm/sec. Dist CCA 49.4/12.6 cm/sec. Dist CCA 54.3/14.2 cm/sec. Prox ICA 60.8/20.1 cm/sec. Prox ICA 128.4/29.8 cm/sec. Mid ICA 79.5/26.7 cm/sec. Mid ICA 137.5/26.1 cm/sec. Dist ICA 78.4/21.2 cm/sec. Dist ICA 93.7/18.8 cm/sec. Rt. ICA/CCA = 1.61. Lt. ICA/CCA = 2.45. Prox ECA 93.8/12.4 cm/sec. Prox ECA 102.5/8 cm/sec. Rt. Vert. 50/12.5 cm/sec. Lt. Vert. 55.1/11.6 cm/sec. Right Extracranial There is homogeneous, smooth atherosclerotic plaque noted in the right common carotid artery. There is heterogeneous, irregular atherosclerotic plaque noted in the right internal carotid artery. There is intimal thickening but no significant atherosclerotic plaque noted in the right external carotid artery. Antegrade flow is noted in the right vertebral artery. Left Extracranial There is homogeneous, smooth atherosclerotic plaque noted in the left common carotid artery. There is homogeneous, irregular atherosclerotic plaque noted in the left internal carotid artery. There is intimal thickening but no significant atherosclerotic plaque noted in the left external carotid artery. Antegrade flow is noted in the left vertebral artery. Procedure Carotid Duplex [id number]. This is a Carotid Duplex examination using B-mode, color flow and specral Doppler. Exam performed in department. VL/Carotid Duplex Ultrasound Interpretation Summary Minimal irregular plaque at the proximal right internal carotid artery with les s than 50% stenosis Less than 50% stenosis right external carotid artery Smooth plaque at the proximal left internal carotid artery with 50 to 69% steno sis. Less than 50% stenosis left external carotid artery Patent and antegrade vertebral arteries bilaterally Previous examination of April 29, 2019 had demonstrated less than 50% stenosis of the left internal carotid artery Ordering Physician: Marisela Minaya Referring Physician: Marisela Minaya Performed By: Josseline Green RVT
== END | disposition home or self-care (01) ==
LOC: CVS 09:58
PROVIDERS: PCP Internal Medicine; Referring Provider Internal Medicine; Visit Provider Internal Medicine
DX: I65.23 Occlusion and stenosis of bilateral carotid arteries (principal); R29.898 Other symptoms and signs involving the musculoskeletal system; R55 Syncope and collapse
CPT/HCPCS: 93880

== ENCOUNTER 2021-11-22 10:00 | Outpatient (RCR) | payer MEDICARE, SELFPAY ==
--- NOTE | 2021-11-01 09:29 | HP.PTEVAL ---
Patient's Visit Information KANA ORTIZ is a 71 year old F referred to Physical Therapy by Dr. Marisela Minaya DO with a diagnosis of CVA. Date of Evaluation: 11/01/21 Physical Therapist: Anamika So DPT - Visit Plan Plan: Patient is currently at baseline and does not require PT services. - Subjective Patient reports that she had a decreased glucose and she passed out Sep and then they took her to the ER. She has no problems getting around. She has no pain. Does not feel that she needs PT. Fully I with all ADL's. She has issues with her hand but she is having OT after PT. She likes to be outdoors- she has no problems walking on uneven ground. No falls or balance issues. She stays busy- she gets bored and has to get up and move a lot. Stairs: no problems getting up/down. PMHx/Meds: see in chart. - Objective Posture: fair throughout. Gait: no deviation noted- good arm swing and trunk rotation- good sean. ROM: WFL in all planes. Stairs: asc/desc 8 recip with 1 HR. HR/TR: able. Strength: Core: fair, Hip: 4+/5 throughout, Knee: 5/5, Ankle: 5/5 - Balance/Special Test Scores Functional Gait Assessment Score: 27 % Disability: 10.0000 Lower Extremity Functional Score: 58 TUG Test Time Seconds: 8 30 Second Chair Rise Test Seconds: 12 - Rehabilitation Potential Physical Therapy Diagnosis: Patient is currently at baseline and does not require PT services. Rehabilitation Potential: Excellent - Anticipated Interventions Thank you for the opportunity to evaluate your patient. For Medicare and Medicare HMO plans, please review the plan of care and approve it. It will need to be FAXED BACK to us at [phone] for Medicare purposes. For Medicare only, by signing this I certify the plan of care. Please let me know if there are questions or concerns regarding this plan of care. Physician Signature: Date:
--- NOTE | 2021-11-01 10:03 | HP.OTEVAL_ITS ---
Patient's Visit Information KANA ORTIZ is a 71 year old F, referred to Occupational Therapy by Dr. Marisela Minaya DO, with a diagnosis of RUE weakness, cva. Date of Evaluation: 11/01/21 Occupational Therapist: Rosi Garces, SARAI/Sharona, CHT - Subjective This 71 year old female was seen for OT eval with dx of CVA-weakness pt states on or her sugar dropped and she passed out- pt states her was with her- pt states she was laying there about 3-4 hours. pt states when she got to the hospital she couldn't move her arm. Pt states she has been struggling with her sugar for a few weeks. pt states is right handed and pt states she is having increased difficulty to mt. her ADLs due to limited use of her right hand. - ADLs Fasteners: Buttons, Zippers, Snaps, [place] Eating: Bring food to mouth, Use silverware, Drink from glass Toileting: Manage clothing, Perineal care Comments: using her left hand Kitchen: Open jars, Open bottle caps Comments: pt states her will help with daily tasks as cooking/cleaning or she will use her left hand for tasks - ROM Shoulder: right/left WFL Elbow: right/left WFL Forearm: right/left WFL Wrist: right 60/25 left 60/45 ROM Comments: pt demo full functional electrical transmission engineer strength - Strength Shoulder: right 4/5 left 5/5 Elbow: right 4/5 left 5/5 Wrist: right 4/5 left 5/5 Housing And Residence Life Director: right 18# left 42# Lateral Pinch: right 6# left 6# Tripod Pinch: right 2# left 6# Tip-to-Tip Pinch: right 2# left 2# Strength Comments: pt demo with decrease in right UE strength compared to left - Sensation Sensation Comments: denies - Nine [place] Peg Right: right 19.34 Left: left 20.36 - Quick DASH-Disab of Arm,Shoulder& Hand Quick DASH Score: 75.0000 - Goals Goal:: pt will demo a testing of UE with microfet2 within 10# peak force of unaffected side by d.c. pt will demo a increase in right electrical transmission engineer strength to 35# or greater to increase pts ind. with ADls and IADLs by d/c. pt will demo a increase in lateral and tripod pinch by 2# or greater by d.c to increase ind. with ADLs by d/c Goal:: pt will report she has returned to manipulating fasteners at IND level by d.c. pt will report IND with juan david care by d/c - Rehabilitation General Assessment: pt is demo with a right UE weakness limiting her IND . with ADLS and IADls- pt states more she uses her hand the more painful it becomes- and this stops her from using it- Pt would benefit from skilled OT services 1-2x week for 4 weeks to return pt to her PLOF. pt agrees with POC. Rehabilitation Potential: Good - Anticipated Interventions A/AAROM/PROM, Strengthening, Joint Protection/Energy Conservation, Fine Motor Coord/Apolinar, Neuro Reeducation, Education re assistive Equipment, Education re Diagnosis - Visit Plan Frequency: 1-2x /Week Duration: 4 Weeks TEXT: Thank you for the opportunity to evaluate your patient. For Medicare and Medicare HMO plans, please review the plan of care and approve it. It will need to be FAXED BACK to us at [phone] for Medicare purposes. Please let me know if there are questions or concerns regarding this plan of care. Physician Signature: Date:
--- NOTE | 2021-11-22 10:24 | HP.OTDCSUM ---
It has been my pleasure to treat KANA ORTIZ under orders from Dr. Marisela Minaya DO, for the diagnosis of RUE weakness, cva for a total of 4 visit(s). Please see the following information for a summary of their discharge status. % Improvement: 90 Objective/Function: right forklift mechanic strength of 33# a increase from 18# left forklift mechanic is 42#. right lateral pinch 6# left 6#. right tripod pinch 6# increase from 2#. right tip pinch 6# a increase from 2#. pt has met Goal and is d/c with return to Normal daily activity- and HEP Patient Goals: Regain Strength, Use Hand/Wrist/Arm Normally Again, Be More Independent in ADLS Goal:: pt will demo a testing of UE with microfet2 within 10# peak force of unaffected side by d.c. pt will demo a increase in right forklift mechanic strength to 35# or greater to increase pts ind. with ADls and IADLs by d/c. pt will demo a increase in lateral and tripod pinch by 2# or greater by d.c to increase ind. with ADLs by d/c Goal:: pt will report she has returned to manipulating fasteners at IND level by d.c. pt will report IND with juan david care by d/c Plan: D/C Discharge Comments: pt was seen for 4 OT visits. pt has returned to performing her ADls and IADls at HAR[place] level- pt had met OT goals and is D/C at this time with HEP. If there are questions or concerns regarding this patient's occupational therapy, please fell free to call me at [phone]. Thank you for the referral of this patient. Sincerely, Rosi Garces, OTR/L, CHT
== END 2021-11-22 13:28 | disposition home or self-care (01) ==
LOC: OT 10:00
PROVIDERS: PCP Internal Medicine; Referring Provider Internal Medicine; Visit Provider Internal Medicine
DX: R29.898 Other symptoms and signs involving the musculoskeletal system (principal); Z86.73 Personal history of transient ischemic attack (TIA), and cerebral infarction without residual deficits
CPT/HCPCS: 97110; 97161; 97166; 97530

== ENCOUNTER → 2022-01-18 | Outpatient (CLI) | payer MEDICARE, SELFPAY ==
--- NOTE | 2022-01-18 14:41 | ECHOLC_ITS ---
Reason For Study: CMP Procedure This was a limited 2D transthoracic echocardiogram. The study was technically difficult. Contrast injection was performed. Exam performed in department. Left Ventricle Based upon the 2D echocardiographic and contrast enhanced images obtained there appears to be grossly normal left ventricular size, wall motion, and systolic function. The estimated ejection fraction is 55 %. Diastolic function is indeterminate. Right Ventricle Normal RV size. Normal systolic function. Atria The left atrium is mildly enlarged. Normal right atrium. No doppler evidence for ASD. Mitral Valve There is moderate mitral annular calcification. Extension of the mitral annular calcification onto the base of the posterior mitral valve leaflet. Trivial mitral valve insufficiency. Tricuspid Valve Normal tricuspid valve. Trivial tricuspid valve insufficiency. Right ventricular systolic pressure estimated to be 39 mmHg. Aortic Valve Trisinus/trileaflet aortic valve. Mild focal aortic valve calcification. Pulmonic Valve The pulmonic valve is not well visualized. Great Vessels Normal sized aortic root. Pericardium/Pleural No pericardial effusion. Medication 20 gauge I.V. with prn adaptor inserted into right arm. Diluted definity 2.5ml given slow IV push to enhance endocardial definition. MMode/2D Measurements & Calculations LVIDd: 4.9 cm IVSd: 1.3 cm Ao root diam: 3.1 cm LVIDs: 3.7 cm LVPWd: 1.2 cm LA dimension: 4.6 cm FS: 23.8 % LVAd ap4: 31.5 cm2 SV(MOD-sp4): 57.6 ml SV(sp4-el): 57.0 ml LVLd ap4: 8.1 cm EDV(MOD-sp4): 105.6 ml EDV(sp4-el): 103.2 ml LVAs ap4: 18.9 cm2 LVLs ap4: 6.6 cm ESV(MOD-sp4): 48.0 ml ESV(sp4-el): 46.2 ml EF(MOD-sp4): 54.6 % EF(sp4-el): 55.2 % Time Measurements MV dec time: 0.16 sec Doppler Measurements & Calculations MV E max hardik: 115.0 cm/sec Lat Peak E' Hardik: 9.7 cm/sec Med Peak E' Hardik: 7.3 cm/sec MV A max hardik: 99.6 cm/sec E/E' lat: 11.9 E/E' med: 15.7 MV E/A: 1.2 MV V2 max: 115.3 cm/sec MV P1/2t max hardik: 116.3 cm/sec TR max hardik: 278.7 cm/sec MV max P.3 mmHg MV P1/2t: 92.5 msec TR max P.2 mmHg MV V2 mean: 66.8 cm/sec MV mean P.1 mmHg MV dec slope: 368.4 cm/sec2 MV V2 VTI: 34.9 cm MVA(P1/2t): 2.4 cm2 ECHO/Echo Limited w/Contrast Interpretation Summary The study was technically difficult. Contrast injection was performed. Based upon the 2D echocardiographic and contrast enhanced images obtained there appears to be grossly normal left ventricular size, wall motion, and systolic function. The estimated ejection fraction is 55 %. The left atrium is mildly enlarged. There is moderate mitral annular calcification. Extension of the mitral annular calcification onto the base of the posterior mi tral valve leaflet. Trivial mitral valve insufficiency. Trivial tricuspid valve insufficiency. Mild focal aortic valve calcification. Right ventricular systolic pressure estimated to be 39 mmHg. Diastolic function is indeterminate. Ordering Physician: Suly Alfaro Referring Physician: Suly Alfaro Performed By: Juan Richardson, GAEL
== END | disposition home or self-care (01) ==
LOC: CVS 14:40
PROVIDERS: PCP Internal Medicine; Referring Provider Nurse Practitioner Gerontology; Visit Provider Nurse Practitioner Gerontology
DX: I25.5 Ischemic cardiomyopathy (principal)
CPT/HCPCS: 93308; Q9957; A4216; C8924

== ENCOUNTER 2022-03-09 10:40 | Emergency (ER) | payer MEDICARE, SELFPAY ==
[2022-03-09 10:41] VITALS: BP 172/103; PULSE 71; RESP 20; TEMP 36; O2SAT 96; BMI 37.8
--- NOTE | 2022-03-09 10:55 | RAD_ITS ---
STUDY: X-RAY CHEST REASON FOR EXAM: Female, 71 years old. Cough and shortness of breath. TECHNIQUE: Single AP portable view of the chest. COMPARISON: Comparison is made with prior study dated 09/16/2020. FINDINGS: EKG electrodes are seen. Mild increased linear markings at the lung bases suggestive of bibasilar atelectasis. There is no demonstrated pleural abnormality. Normal size heart. Normal mediastinum and mahad. Normal visualized pulmonary arteries. There is atherosclerotic calcification of the aortic arch with tortuosity. There are diffuse degenerative changes of the visualized thoracic spine. Normal visualized ribs, clavicles, and shoulders. There is no demonstrated abnormality of the visualized soft tissue structures of the upper abdomen. RAD/Chest 1 View (Portable) IMPRESSION: Mild degree of increased markings at the lung bases suggestive of bibasilar atelectasis. Electronically Signed: Derrick Parmar MD at 11:48 EST ,
--- NOTE | 2022-03-09 11:02 | ED.VIS.DYS ---
HPI History of Present Illness Chief Complaint: Shortness of Breath Informant: patient Onset/Context/Timing Onset: Weeks Timing: Waxes and wanes Current Severity: Moderate Maximum Severity: Moderate Narrative Narrative: Patient presents secondary to shortness of breath and cough. Patient said she was sick with COVID around [place]. Since that time she continues to have increasing shortness of breath and cough. She states she gets quite short of breath with any exertion or with attempting to lie down. She denies chest pain. No fever or chills. She did take a COVID test March 05 and it did return negative. [facility] Medical History Abnormal echocardiogram Abnormal stress test Atherosclerotic heart disease of [place] coronary artery without angina pectoris CAD (coronary artery disease) Cardiomyopathy Decreased cardiac ejection fraction Dyspnea Essential hypertension GERD (gastroesophageal reflux disease) Hypothyroidism LBBB (left bundle branch block) Presence of stent in coronary artery (~09/15/20) Pure hypercholesterolemia Type 2 diabetes mellitus Home Medications glimepiride 4 mg tablet 4 mg PO BID diabetes 07/31/20 [History Last Taken Unknown] pravastatin 80 mg tablet 80 mg PO QHS cholesterol 07/31/20 [History Last Taken Unknown] lisinopril 10 mg tablet 10 mg PO BID blood pressure 08/20/20 [History Last Taken Unknown] aspirin 81 mg chewable tablet 81 mg PO DAILY heart health 09/17/20 [History Last Taken Unknown] nitroglycerin 0.4 mg sublingual tablet 0.4 mg sublingual Q5M PRN chest pain #25 tabs 09/17/20 [Rx Last Taken Unknown] potassium chloride 20 mEq tablet,extended release 20 meq PO DAILY supplement 09/17/20 [History Last Taken Unknown] empagliflozin 25 mg tablet (Jardiance) 25 mg PO DAILY 04/16/21 [History Last Taken Unknown] levothyroxine 25 mcg tablet 50 mcg PO DAILY thyroid 04/16/21 [History Last Taken Unknown] carvedilol 25 mg tablet 25 mg PO BID 06/18/21 [History Last Taken Unknown] clopidogrel 75 mg tablet (Plavix) 75 mg PO DAILY #90 tabs 12/01/21 [Rx Last Taken Unknown] furosemide 40 mg tablet 40 mg PO DAILY #90 tabs 12/01/21 [Rx Last Taken Unknown] furosemide 40 mg tablet (Lasix) 40 mg PO BID #60 tabs 03/09/22 [Rx Last Taken Unknown] Allergy/AdvReac Type Severity Reaction Status Date / Time No Known Allergies Allergy Verified 03/09/22 10:44 Family History Mother CVA (cerebral vascular accident), Onset Age: 67 Brother Myocardial infarction, Onset Age: 50 Father Cancer, Onset Age: 57 Surgical History H/O total hysterectomy with bilateral salpingo-oophorectomy (BSO) History of cholecystectomy History of repair of right rotator cuff Presence of coronary angioplasty implant and graft (~09/15/20) S/P PTCA (percutaneous transluminal coronary angioplasty) Social History Smoking Status: Former smoker alcohol intake: current alcohol intake frequency: holidays/special occasions only substance use type: does not use caffeine: Yes Type: carbonated beverages Number of servings: 1 and coffee Number of servings: 4 ROS ROS ED Constitutional Constitutional ED: Denies chills or fever(s) Eyes Eyes: Denies change in vision or discharge from eye(s) ENT ENT ED: Denies discharge from eye(s), rhinorrhea or sore throat Cardiovascular Cardiovascular: Denies chest pain or palpitations Respiratory/Chest Respiratory/Chest: Reports cough and dyspnea Gastrointestinal Gastrointestinal: Denies abdominal pain, diarrhea, nausea or vomiting Genitourinary Genitourinary ED: Denies dysuria Musculoskeletal Musculoskeletal: Denies back pain or extremity pain Integumentary Denies Abrasions or rash Neurologic Neurologic: Denies headache(s) or weakness Psychiatric Psychiatric: Denies anxiety or depression Allergic/Immunologic Allergic/Immunologic ED: Denies lip swelling or urticaria EXAM Physical Exam Const Vital Signs: 03/09/22 10:41 03/09/22 11:08 03/09/22 11:08 Temperature 96.8 F L Temperature Source Temporal Pulse Rate 71 73 Respiratory Rate 20 H 19 H Respiratory Effort Non-Labored Short of Breath Blood Pressure 172/103 H 151/110 H Blood Pressure Mean 126 123 Pulse Ox 96 96 Oxygen Delivery Method Room Air Room Air Room Air 03/09/22 13:27 Temperature Temperature Source Pulse Rate Respiratory Rate Respiratory Effort Blood Pressure Blood Pressure Mean Pulse Ox 97 Oxygen Delivery Method Room Air Positive well nourished and well developed General Appearance ED: well developed HEENT Reports normocephalic and head/scalp atraumatic Eyes PERRL and EOMs intact bilaterally Neck supple Chest Wall inspection of chest normal and palpation of chest normal Resp normal respiratory effort and clear to auscultation bilaterally Cardio regular rate and regular rhythm GI normal to inspection, nondistended, normoactive bowel sounds Palpation: soft Back/Spine no CVA tenderness Extremity Extremity Narrative: 1+ bilateral lower extremity edema. Neuro oriented x3 and no sensory deficits noted Sensorium / Orientation: alert Motor Exam: strength 5/5 throughout Psych mental status grossly normal Skin no rashes or lesions noted MDM MDM MDM Narrative Medical decision making narrative: Patient placed on waste chopper. EKG, chest x-ray, lab work obtained. Lab Data Attestation: I reviewed the patient's lab results. Labs: Laboratory Results - last 24 hr 03/09/22 03/09/22 03/09/22 11:20 11:20 11:20 WBC 9.3 RBC 3.58 L Hgb 10.9 L Hct 32.7 L MCV 91.3 MCH 30.4 MCHC 33.3 RDW Std Deviation 47.2 H RDW Coeff of Diana 14.1 Plt Count 169 MPV 11.7 Immature Gran % (Auto) 0.900 Neut % (Auto) 84.6 H Lymph % (Auto) 8.0 L [place] % (Auto) 4.6 Eos % (Auto) 1.6 Baso % (Auto) 0.3 Absolute Neuts (auto) 7.9 H Absolute Lymphs (auto) 0.74 L Nucleated RBC % 0 D-Dimer Quant (PE/DVT) 0.65 H* Sodium 143 Potassium 4.3 Chloride 114 H Carbon Dioxide 24.0 Anion Gap 5 BUN 21 H Creatinine 1.23 H Estim Creat Clear Calc 31.01 Est GFR (MDRD) Af Amer 56 L Est GFR (MDRD) Non-Af 46 L BUN/Creatinine Ratio 17.1 Glucose 165 H Calcium 8.8 Total Bilirubin 0.70 Direct Bilirubin 0.17 AST 10 L ALT 14 Alkaline Phosphatase 89 Troponin I High Sens 17 B-Natriuretic Peptide Total Protein 7.0 Albumin 3.3 Globulin 3.7 03/09/22 11:20 WBC RBC Hgb Hct MCV MCH MCHC RDW Std Deviation RDW Coeff of Diana Plt Count MPV Immature Gran % (Auto) Neut % (Auto) Lymph % (Auto) [place] % (Auto) Eos % (Auto) Baso % (Auto) Absolute Neuts (auto) Absolute Lymphs (auto) Nucleated RBC % D-Dimer Quant (PE/DVT) Sodium Potassium Chloride Carbon Dioxide Anion Gap BUN Creatinine Estim Creat Clear Calc Est GFR (MDRD) Af Amer Est GFR (MDRD) Non-Af BUN/Creatinine Ratio Glucose Calcium Total Bilirubin Direct Bilirubin AST ALT Alkaline Phosphatase Troponin I High Sens B-Natriuretic Peptide 356.6 H Total Protein Albumin Globulin Radiography Chest X-Ray - ED: 1 View, Read by ED Physician and - (Mild increased fluid. Chronic changes.) Diagnostic Testing: Clinical Impression(s) from Imaging Studies Chest X-Ray 03/09/22 10:55 IMPRESSION: Mild degree of increased markings at the lung bases suggestive of bibasilar atelectasis. Electronically Signed: Derrick Parmar MD at 11:48 EST , EKG Initial EKG: Attestation: I personally reviewed and interpreted this EKG as follows: Interpretation: Sinus Rhythm (Sinus at 64 with no acute ischemia.) Treatment and Re-Evaluation Narrative: Patient's prior cardiac evaluations were reviewed. As recently as 2 years ago she had an EF of 25%. Echocardiogram in early January 2022 revealed an EF of 55%. Patient developed COVID following this. She has had continued shortness of breath since that time. Patient is currently on Lasix 40 mg daily. She states she urinates all the time. CBC is unremarkable with a hemoglobin of 10.9. Chemistry studies reveal a BUN of 21 and creatinine 1.23 which is improved compared to her prior values. LFTs are unremarkable. Troponin is normal at 17. BNP is 356. D-dimer is 0.65 which is normal when adjusted for age. Portable chest x-ray per my interpretation reveals slight fluid overload. Radiology interpretation is reviewed. EKG reveals no acute ischemia. I spoke Dr. Zimmerman, on-call for cardiology. Patient will be given 40 mg of IV Lasix at this time and her daily Lasix at home will be bumped to twice a day. Patient is to call the office tomorrow to be seen. She will likely need a repeat echocardiogram to ensure no worsening of her cardiomyopathy. Return instructions been provided to the patient. She is comfortable with this plan. Discharge Plan Triage Chief Complaint: Shortness of Breath ED Provider: Eva Cm Dx/Rx/DC Orders Clinical Impression: CHF (congestive heart failure) Instructions: ED Heart Failure, Congestive (CHF) Prescriptions: New furosemide [Lasix] 40 mg tablet 40 mg PO BID Qty: 60 0RF No Action lisinopril 10 mg tablet 10 mg PO BID glimepiride 4 mg tablet 4 mg PO BID pravastatin 80 mg tablet 80 mg PO QHS levothyroxine 25 mcg tablet 50 mcg PO DAILY Jardiance 25 mg tablet 25 mg PO DAILY carvedilol 25 mg tablet 25 mg PO BID nitroglycerin 0.4 mg tablet, sublingual 0.4 mg sublingual Q5M PRN (Reason: chest pain) Qty: 25 3RF Rx Instructions: do not exceed 3 doses per episode aspirin 81 mg tablet,chewable 81 mg PO DAILY potassium chloride 20 mEq tablet extended release 20 meq PO DAILY clopidogrel [Plavix] 75 mg tablet 75 mg PO DAILY Qty: 90 3RF furosemide 40 mg tablet 40 mg PO DAILY Qty: 90 3RF Primary Care Provider: Marisela Minaya Referrals: Marisela Minaya DO [Primary Care Provider] - Suly Alfaro STORE OPERATIONS SPECIALIST, STORE OPERATIONS SPECIALIST-C [Non-Staff -Ordering Privileges] - As soon as possible Activity Restrictions/Additional Instructions: I discussed her care Dr. Zimmerman, cardiology. He would like you to take Lasix (furosemide) 40 mg twice a day for the next week. Please call the office tomorrow to be seen as soon as possible. Disposition Disposition: Home, Self Care
[2022-03-09 11:08] VITALS: BP 151/110; PULSE 73; RESP 19; O2SAT 94; O2SAT 96
[2022-03-09 11:34] LABS: Absolute Lymphocyte Count 0.74 X10^3/uL (0.83-4.51); Absolute Neutrophil Count 7.9 X10^3/uL (2.0-7.7); Basophil# 0.03 X10^3/uL; Basophil% 0.3 % (0-1); Eosinophil# 0.15 X10^3/uL; Eosinophils% 1.6 % (0-5); Hematocrit 32.7 % (37-47); Hemoglobin 10.9 g/dL (12.0-15.0); Lymphocyte # 0.74 X10^3/ul (0.83-4.51); Mean Corp Hgb Conc 33.3 g/dL (32-36); Mean Corpuscular Hgb 30.4 pg (27.0-32.0); Mean Corpuscular Volume 91.3 fL (81-99); Mean Platelet Vol. 11.7 fl (6.2-12.0); Monocyte# 0.43 X10^3/uL; Monocyte% 4.6 % (0-10); NRBC Flagged by Analyzer 0 % (0-5); Neutrophil # 7.87 X10^3/uL (2.7-7.7); Neutrophil % 84.6 % (47-70); Platelet Count 169 K/mm3 (150-450); RBC Distribution Width CV 14.1 % (11.6-14.6); RBC Distribution Width SD 47.2 fl (35.1-43.9); Red Blood Count 3.58 M/mm3 (4.2-5.4); White Blood Count 9.3 K/mm3 (4.4-11.0)
[2022-03-09 11:48] LABS: D-Dimer Quantitative (DVT/PE) 0.65 FEU/ug/m (0.27-0.49)
[2022-03-09 11:51] LABS: AST(SGOT) 10 U/L (15-37); Alanine Aminotransfer ALT/SGPT 14 U/L (13-56); Albumin, Serum 3.3 g/dL (3.2-5.0); Alkaline Phosphatase 89 U/L (45-117); Anion Gap 5 (5-15); BUN 21 mg/dL (7-18); BUN/Creat Ratio 17.1 RATIO (10-20); Bilirubin, Direct 0.17 mg/dL (0.00-0.30); Calcium,Total 8.8 mg/dL (8.5-10.1); Chloride 114 mmol/L (98-107); Creatinine, Serum 1.23 mg/dL (0.55-1.02); EST Glomerular Filtration Rate 46 mL/min (>60); Est Glom Filt Rate - Afr Amer 56 mL/min (>60); Estimated Creatinine Clearance 31.01 ml/min; Globulin 3.7 g/dL (2.2-4.2); Glucose 165 mg/dL (74-106); Potassium 4.3 mmol/L (3.5-5.1); Sodium Level 143 mmol/L (136-145); Troponin-I HS 17 pg/mL (3.0-54.0)
[2022-03-09 11:53] LABS: BNP,B-Type NATRIURETIC PEPTIDE 356.6 pg/mL (0-100)
[2022-03-09 13:27] VITALS: O2SAT 97
[2022-03-09] MEDS: Furosemide 40 MG/4 ML Vial IV (14:08)
[2022-03-09 14:09] VITALS: BP 173/71; PULSE 68; RESP 17; O2SAT 94
[2022-03-09 14:39] VITALS: BP 173/71; PULSE 63; RESP 16; O2SAT 94
== END 2022-03-09 14:40 | disposition home or self-care (01) ==
PROVIDERS: Emergency Provider Emergency Medicine; PCP Internal Medicine; Visit Provider Emergency Medicine
DX: I11.0 Hypertensive heart disease with heart failure (principal); I50.9 Heart failure, unspecified; I42.9 Cardiomyopathy, unspecified; E11.9 Type 2 diabetes mellitus without complications; I25.10 Atherosclerotic heart disease of native coronary artery without angina pectoris; E78.00 Pure hypercholesterolemia, unspecified; E03.9 Hypothyroidism, unspecified; K21.9 Gastro-esophageal reflux disease without esophagitis; Z79.82 Long term (current) use of aspirin; Z79.84 Long term (current) use of oral hypoglycemic drugs; Z79.890 Hormone replacement therapy; Z79.899 Other long term (current) drug therapy; Z87.891 Personal history of nicotine dependence; Z86.16 Personal history of COVID-19; Z95.5 Presence of coronary angioplasty implant and graft
CPT/HCPCS: 71045; 80048; 80076; 83880; 84484; 85025; 85379; 93005; 96374; 99284; A4216; J1940

== ENCOUNTER → 2023-02-09 | Outpatient (CLI) | payer MEDICARE, SELFPAY ==
--- NOTE | 2023-02-09 14:36 | BI_ITS ---
MAMMOGRAPHY - BILATERAL SCREENING 3-D TOMOSYNTHESIS REASON FOR EXAM: Female, 72 years old. Routine annual screening mammogram. PERTINENT HISTORY: Maternal cousins and niece with breast cancer. TECHNIQUE: 2-D mammograms and 3-D Tomosynthesis of the breast (s) were performed. CAD was performed. COMPARISON: February 04, 2021 FINDINGS: The breast composition is almost entirely fat. Stable scattered benign calcifications No dominant masses, suspicious microcalcifications, asymmetries, skin thickening or nipple retraction. BI/SCRN MAMM (CAD)W/YOLANDA BILAT IMPRESSION: No interval change and no mammographic signs of malignancy. Routine yearly mammogram recommended. ASSESSMENT CATEGORY: BIRADS Category 2: Benign. A letter regarding these results will be sent to the patient by the facility within 30 days. FOLLOW UP RECOMMENDATION: Yearly follow up mammogram recommended. (A) Approximately 10% of breast cancers are not detected by mammography. A normal mammogram should not delay biopsy of a clinically suspicious abnormality. Electronically Signed: Shemar Lea MD at 15:51 EST ,
--- NOTE | 2023-02-09 14:39 | BD_ITS ---
STUDY: DUAL ENERGY X-RAY ABSORPTIOMETRY / DXA REASON FOR EXAM: Female, 72 years old. 627.8Menopausal postmenopausal BONE DENSITY REASON FOR EXAM TECHNIQUE: Bone Mineral Density (BMD) measurements of lumbar spine and bilateral hips were obtained. COMPARISON: Comparison is made with prior study dated February 04, 2021. FINDINGS: Lumbar Spine (L1-L4): g/cm2 (1.126) / T-score (0.7) / Z-score (2.9) Findings are suggestive of normal bone density with a low fracture risk. Left Femur Total: g/cm2 (0.938) / T-score (0.0) / Z-score (1.5) Left Femoral Neck: g/cm2 (0.769) / T-score (-0.7) / Z-score (1.1) Right Femur Total: g/cm2 (0.967) / T-score (0.2) / Z-score (1.7) Right Femoral Neck: g/cm2 (0.806) / T-score (-0.4) / Z-score (1.4) The T-Scores on the most recent prior examination were: Lumbar Spine (L1-L4): There has been improvement of bone density since the previous examination. Left Femur Total: which represents a worsening of 1.1%. Right Femur Total: which represents a worsening of 2.3%. BD/Dexa Bone Density Study IMPRESSION: The patient is considered normal as outlined below according to World [employer] Organization (WHO) criteria with a low fracture risk. There has been worsening of bone density since the previous examination. Reference Information: The T-score is the number of standard deviations above or below the standard which is normal for young adults at their peak bone mineral density. The World Health Organization (WHO) interprets the T-scores as follows: Above -1 Normal bone density Between -1 and -2.5 Osteopenia Equal to / or below -2.5 Osteoporosis As a practical clinical guideline, osteopenia may be graded as follows: Mild -1 through -1.5 Moderate -1.6 through -2.0 Severe -2.1 through -2.4 The Z-score is the number of standard deviations above or below age-matched controls. A Z-score of less than -1.5 would be considered abnormal. References: 1. NIH Osteoporosis and Related Bone Diseases www osteo.org 2. International Society for Clinical Densitometry www iscd.org 3. National Osteoporosis Foundation www nof.org Electronically Signed: Derrick Parmar MD at 15:14 EST ,
== END | disposition home or self-care (01) ==
LOC: OPBD 14:34
PROVIDERS: PCP Internal Medicine; Referring Provider Internal Medicine; Visit Provider Internal Medicine
DX: Z12.31 Encounter for screening mammogram for malignant neoplasm of breast (principal); Z78.0 Asymptomatic menopausal state
CPT/HCPCS: 77063; 77067; 77080

== ENCOUNTER → 2023-02-21 | Outpatient (CLI) | payer MEDICARE, SELFPAY ==
[2023-02-21 15:38] LABS: Absolute Lymphocyte Count 0.87 X10^3/uL (0.83-4.51); Absolute Neutrophil Count 7.2 X10^3/uL (2.0-7.7); Basophil# 0.04 X10^3/uL; Basophil% 0.4 % (0-1); Eosinophil# 0.18 X10^3/uL; Hematocrit 29.4 % (37-47); Hemoglobin 9.4 g/dL (12.0-15.0); Lymphocyte # 0.87 X10^3/ul (0.83-4.51); Lymphocyte % 9.6 % (19-41); Mean Corpuscular Hgb 29.3 pg (27.0-32.0); Mean Corpuscular Volume 91.6 fL (81-99); Mean Platelet Vol. 12.6 fl (6.2-12.0); Monocyte# 0.66 X10^3/uL; Monocyte% 7.3 % (0-10); NRBC Flagged by Analyzer 0 % (0-5); Neutrophil # 7.22 X10^3/uL (2.7-7.7); Neutrophil % 79.9 % (47-70); Platelet Count 144 K/mm3 (150-450); RBC Distribution Width CV 13.2 % (11.6-14.6); RBC Distribution Width SD 44.6 fl (35.1-43.9); Red Blood Count 3.21 M/mm3 (4.2-5.4)
[2023-02-21 16:43] LABS: AST(SGOT) 14 U/L (15-37); Alanine Aminotransfer ALT/SGPT 17 U/L (13-56); Albumin, Serum 3.2 g/dL (3.2-5.0); Alkaline Phosphatase 82 U/L (45-117); Anion Gap 2 (5-15); BUN 30 mg/dL (7-18); BUN/Creat Ratio 18.3 RATIO (10-20); Bilirubin, Direct 0.09 mg/dL (0.00-0.30); Calcium,Total 9.1 mg/dL (8.5-10.1); Chloride 109 mmol/L (98-107); Cholesterol 148 mg/dL (200); Creatinine, Serum 1.64 mg/dL (0.55-1.02); EST Glomerular Filtration Rate 33 mL/min (>60); Est Glom Filt Rate - Afr Amer 40 mL/min (>60); Globulin 3.3 g/dL (2.2-4.2); Glucose 230 mg/dL (74-106); High Density Lipoprotein 30 mg/dL; Potassium 4.1 mmol/L (3.5-5.1); Protein, Total 6.5 g/dL (6.4-8.2); Sodium Level 140 mmol/L (136-145); T4 Free Direct 1.18 ng/dL (0.76-1.46); Thyroid Stim Hormone (TSH) 2.06 uIU/mL (0.358-3.74); Triglycerides 150 mg/dL; Very Low Density Lipoprotein 30 mg/dL (5-40)
== END | disposition home or self-care (01) ==
LOC: LAB 14:59
PROVIDERS: PCP Internal Medicine; Visit Provider Nurse Practitioner Gerontology
DX: R53.83 Other fatigue (principal); E55.9 Vitamin D deficiency, unspecified; E78.00 Pure hypercholesterolemia, unspecified
CPT/HCPCS: 36415; 80048; 80061; 80076; 82306; 84439; 84443; 84481; 85025

== ENCOUNTER → 2023-07-24 | Outpatient (CLI) | payer MEDICARE, SELFPAY ==
--- NOTE | 2023-07-24 13:50 | ART_ITS ---
Reason For Study: Decreased pedal pulses Procedure A bilateral lower extremity continuous wave Doppler with analog waveform analysis,segmental pressures,and ankle brachial indexes with exercise. Left Segmental Pressures Left brachial= 162mmHg. Left posterior tibial artery = 172mmHg. Left dorsalis pedis artery = 181mmHg. Left digit = 140 mmHg. The left dorsalis pedis waveforms are biphasic. The left posterior tibial artery waveforms are biphasic. Right Segmental Pressures Right brachial= 160mmHg. Right posterior tibial artery = 175mmHg. Right dorsalis pedis artery = 170mmHg. Right digit = 143 mmHg. The right dorsalis pedis waveforms are biphasic. The right posterior tibial artery waveforms are biphasic. Indices The right ankle brachial index by the dorsalis pedis is 1.05. The right ankle brachial index by the posterior tibial artery is 1.08. The right digital-brachial index is 0.88. The right post exercise ankle brachial index is 0.51. The left ankle brachial index by the dorsalis pedis is 1.12. The left ankle brachial index by the posterior tibial artery is 1.06. The left digital-brachial index is 0.86. The left post exercise ankle brachial index is 0.84. VL/Lower Ext Art Exam w/ Exercise Interpretation Summary Right SUGAR 1.08, normal. TBI and Doppler/PVR waveforms of the right leg normal a t rest. Right lower extremity with abnormal response to exercise and post exercise SUGAR in the moderate category. Left SUGAR 1.12, normal. TBI and Doppler/PVR waveforms of the left leg normal at rest. Left lower extremity with abnormal response to exercise and post exercise SUGAR i n the moderate category. Ordering Physician: Shaggy Garcia Referring Physician: Marisela Minaya M.D. Performed By: Josseline Green RVT
== END | disposition home or self-care (01) ==
PROVIDERS: PCP Internal Medicine; Referring Provider Internal Medicine Cardiovascular Disease; Visit Provider Internal Medicine Cardiovascular Disease
DX: I73.9 Peripheral vascular disease, unspecified (principal)
CPT/HCPCS: 93924

== ENCOUNTER → 2024-01-19 | Outpatient (CLI) | payer MEDICARE, SELFPAY ==
--- NOTE | 2024-01-19 12:48 | CDU_ITS ---
Reason For Study: Dizziness Rt. Velocities/BP Lt. Velocities/BP Prox CCA 57/10.7 cm/sec. Prox CCA 52/11.3 cm/sec. Mid CCA 34.3/9.7 cm/sec. Mid CCA 56.4/13.5 cm/sec. Dist CCA 54.1/12.6 cm/sec. Dist CCA 53.1/14.6 cm/sec. Prox ICA 74.9/29.6 cm/sec. Prox ICA 334.7/107.1 cm/sec. Mid ICA 115.3/34.2 cm/sec. Mid ICA 178.8/59.2 cm/sec. Dist ICA 88.8/29.8 cm/sec. Dist ICA 104.7/29.8 cm/sec. Rt. ICA/CCA = 3.36. Lt. ICA/CCA = 5.93. Prox ECA 64.5/6 cm/sec. Prox ECA 82.8/5.8 cm/sec. Rt. Vert. 38.4/9 cm/sec. Lt. Vert. 80.2/13.9 cm/sec. Right Extracranial There is homogeneous, smooth atherosclerotic plaque noted in the right common carotid artery. There is heterogeneous, irregular atherosclerotic plaque noted in the right internal carotid artery. There is intimal thickening but no significant atherosclerotic plaque noted in the right external carotid artery. Antegrade flow is noted in the right vertebral artery. Left Extracranial There is homogeneous, smooth atherosclerotic plaque noted in the left common carotid artery. There is heterogeneous, irregular atherosclerotic plaque noted in the left internal carotid artery. There is intimal thickening but no significant atherosclerotic plaque noted in the left external carotid artery. Antegrade flow is noted in the left vertebral artery. Procedure Carotid Duplex 17628. This is a Carotid Duplex examination using B-mode, color flow and specral Doppler. Preliminary report given to Leana ALAS. Exam performed in department. VL/Carotid Duplex Ultrasound Interpretation Summary Mild (<50%) stenosis right extracranial internal carotid. Severe (>70%) stenosis left extracranial internal carotid. Patent and antegrade vertebrals bilaterally. Ordering Physician: Suly Alfaro Referring Physician: Marisela Minaya M.D. Performed By: Josseline Green RVT
== END | disposition home or self-care (01) ==
LOC: CVS 12:47
PROVIDERS: PCP Internal Medicine; Referring Provider Nurse Practitioner Gerontology; Visit Provider Nurse Practitioner Gerontology
DX: R42 Dizziness and giddiness (principal)
CPT/HCPCS: 93880

== ENCOUNTER → 2024-02-12 | Outpatient (CLI) | payer MEDICARE, SELFPAY ==
--- NOTE | 2024-02-12 09:31 | BI_ITS ---
MAMMOGRAPHY - BILATERAL SCREENING 3-D TOMOSYNTHESIS REASON FOR EXAM: Female, 73 years old. postmenupausal -- screening PERTINENT HISTORY: No significant family history. TECHNIQUE: 2-D mammograms and 3-D Tomosynthesis of the breast (s) were performed. CAD was performed. COMPARISON: 02/09/2023 FINDINGS: The breast composition is composed of scattered fibroglandular density. Scattered benign calcifications are seen. No dense spiculated masses or suspicious microcalcifications are identified. No architectural distortion is identified. There is no skin thickening or retraction. There has been no significant change since the prior study. BI/SCRN MAMM (CAD)W/YOLANDA BILAT IMPRESSION: No mammographic signs of malignancy. Routine yearly mammograms recommended. ASSESSMENT CATEGORY: BIRADS Category 1: Negative. A letter regarding these results will be sent to the patient by the facility within 30 days. FOLLOW UP RECOMMENDATION: Yearly follow up mammogram recommended. (A) Approximately 10% of breast cancers are not detected by mammography. A normal mammogram should not delay biopsy of a clinically suspicious abnormality. Electronically Signed: Mark Banegas MD at 20:41 EST ,
== END | disposition home or self-care (01) ==
LOC: OPBI 09:31
PROVIDERS: PCP Internal Medicine; Referring Provider Internal Medicine; Visit Provider Internal Medicine
DX: Z12.31 Encounter for screening mammogram for malignant neoplasm of breast (principal); Z78.0 Asymptomatic menopausal state
CPT/HCPCS: 77063; 77067

== ENCOUNTER → 2024-02-21 | Outpatient (CLI) | payer MEDICARE, SELFPAY ==
--- NOTE | 2024-02-21 14:22 | CT_ITS ---
EXAM: CT ANGIOGRAPHY HEAD AND NECK WITHOUT AND WITH INTRAVENOUS CONTRAST CLINICAL INDICATION: severe L ICA stenosis TECHNIQUE: [place]/head and neck CT angiography protocol performed without and with intravenous contrast. This CT exam was performed using one or more of the following dose reduction techniques: automated exposure control, adjustment of the mA and/or kV according to patient size, and/or use of iterative reconstruction technique. MIP reconstructed images were created and reviewed. CONTRAST: IV 75mL Isovue-370 COMPARISON: Noncontrast CT head, 11/03/2021 and MRI brain, 07/22/2011. FINDINGS: HEAD: RIGHT ANTERIOR CEREBRAL ARTERY: No significant abnormality. No occlusion or significant stenosis. Anterior communicating artery is present. No aneurysm. RIGHT MIDDLE CEREBRAL ARTERY: No significant abnormality. No occlusion or significant stenosis. No aneurysm. RIGHT POSTERIOR CEREBRAL ARTERY: No significant abnormality. No occlusion or significant stenosis. No aneurysm. RIGHT INTRACRANIAL INTERNAL CAROTID ARTERY: Arteriosclerosis of the cavernous and supracavernous right internal carotid artery with mild to moderate stenosis of the supracavernous segment. No dissection or occlusion. RIGHT INTRACRANIAL VERTEBRAL ARTERY: No significant abnormality. No significant stenosis. No dissection or occlusion. LEFT ANTERIOR CEREBRAL ARTERY: No significant abnormality. No occlusion or significant stenosis. No aneurysm. LEFT MIDDLE CEREBRAL ARTERY: No significant abnormality. No occlusion or significant stenosis. No aneurysm. LEFT POSTERIOR CEREBRAL ARTERY: No significant abnormality. No occlusion or significant stenosis. No aneurysm. LEFT INTRACRANIAL INTERNAL CAROTID ARTERY: Arteriosclerosis of the cavernous and supracavernous left internal carotid artery with at least moderate stenosis of the supracavernous segment. No dissection or occlusion. LEFT INTRACRANIAL VERTEBRAL ARTERY: No significant abnormality. No significant stenosis. No dissection or occlusion. BASILAR ARTERY: No significant abnormality. No occlusion or significant stenosis. No aneurysm. OTHER VASCULATURE: No vascular malformation. BRAIN AND EXTRA-AXIAL SPACES: No significant abnormality. No intra- or extra-axial hemorrhage. No evidence of acute infarct. No intracranial mass or mass effect. There is preservation of the cruz/white matter interface. Posterior fossa structures are unremarkable. Ventricles are appropriate for age. No hydrocephalus. Basal cisterns are patent. SINUSES: Normal as visualized. Clear. MASTOID AIR CELLS: Normal as visualized. Clear. ORBITS: Visualized globes, extraocular muscles, optic nerves and retrobulbar fat appear unremarkable. NECK: RIGHT COMMON CAROTID ARTERY: No significant abnormality. No significant stenosis. No dissection or occlusion. RIGHT EXTRACRANIAL INTERNAL CAROTID ARTERY: Atherosclerosis of the right carotid bifurcation and carotid bulb with less than 50% stenosis of the right internal carotid artery by NASCET criteria. No dissection or occlusion. RIGHT EXTERNAL CAROTID ARTERY: No significant abnormality. No occlusion. RIGHT EXTRACRANIAL VERTEBRAL ARTERY: No significant abnormality. No significant stenosis. No dissection or occlusion. LEFT COMMON CAROTID ARTERY: No significant abnormality. No significant stenosis. No dissection or occlusion. LEFT EXTRACRANIAL INTERNAL CAROTID ARTERY: Atherosclerosis of the left carotid bifurcation and carotid bulb with stenosis of approximately 1.4 mm compared to 4.6 mm ICA distal to the bulb. No dissection or occlusion. LEFT EXTERNAL CAROTID ARTERY: No significant abnormality. No occlusion. LEFT EXTRACRANIAL VERTEBRAL ARTERY: No significant abnormality. No significant stenosis. No dissection or occlusion. BRACHIOCEPHALIC AND SUBCLAVIAN ARTERIES: Normal as visualized. No occlusion or significant stenosis. LUNG APICES: Normal as visualized. HEAD and NECK: BONES/JOINTS: Degenerative changes in the spine. No discrete lytic or blastic abnormalities. SOFT TISSUES: No significant abnormality. CAROTID STENOSIS REFERENCE USING NASCET CRITERIA: % ICA stenosis = (1 - narrowest ICA diameter/diameter of distal cervical ICA) x 100. Mild - <50% stenosis. Moderate - 50-69% stenosis. Severe - 70-94% stenosis. Near occlusion - 95-99% stenosis. Occluded - 100% stenosis. CT/CTA Head AND Neck W/ Contrast IMPRESSION: 1. Approximately 70% stenosis of the left internal carotid artery by NASCET criteria. 2. Arteriosclerosis of the cavernous and supracavernous left internal carotid artery with at least moderate stenosis of the supracavernous segment. 3. Atherosclerosis of the right carotid bifurcation and carotid bulb with less than 50% stenosis of the right internal carotid artery by NASCET criteria. 4. Arteriosclerosis of the cavernous and supracavernous right internal carotid artery with mild to moderate stenosis of the supracavernous segment. 5. No evidence of large vessel occlusion or critical intracranial arterial stenosis is otherwise identified. 6. No acute intracranial pathology. Electronically Signed: Yuan Whitman DO at 23:59 EST ,
[2024-02-21 14:48] LABS: CREATININE FINGERSTICK 1.5 mg/dL (0.55-1.02)
== END | disposition home or self-care (01) ==
LOC: CT 14:22
PROVIDERS: PCP Internal Medicine; Referring Provider Physician Assistant; Visit Provider Physician Assistant
DX: I65.22 Occlusion and stenosis of left carotid artery (principal)
CPT/HCPCS: 70496; 70498; Q9967

== ENCOUNTER → 2024-03-29 | Outpatient (CLI) | payer MEDICARE, SELFPAY ==
[2024-03-29 10:20] LABS: Absolute Neutrophil Count 7.7 X10^3/uL (2.0-7.7); Basophil# 0.05 X10^3/uL; Basophil% 0.5 % (0-1); Eosinophil# 0.24 X10^3/uL; Eosinophils% 2.6 % (0-5); Hematocrit 32.5 % (37-47); Hemoglobin 10.4 g/dL (12.0-15.0); Lymphocyte % 7.5 % (19-41); Mean Corpuscular Hgb 29.3 pg (27.0-32.0); Mean Corpuscular Volume 91.5 fL (81-99); Mean Platelet Vol. 11.9 fl (6.2-12.0); Monocyte# 0.64 X10^3/uL; Monocyte% 6.9 % (0-10); NRBC Flagged by Analyzer 0 % (0-5); Neutrophil # 7.65 X10^3/uL (2.7-7.7); Platelet Count 174 K/mm3 (150-450); RBC Distribution Width CV 14.2 % (11.6-14.6); RBC Distribution Width SD 48.2 fl (35.1-43.9); Red Blood Count 3.55 M/mm3 (4.2-5.4); White Blood Count 9.3 K/mm3 (4.4-11.0)
[2024-03-29 10:51] LABS: BNP,B-Type NATRIURETIC PEPTIDE 335.2 pg/mL (0-100)
[2024-03-29 11:00] LABS: Anion Gap 6 (5-15); BUN 27 mg/dL (7-18); BUN/Creat Ratio 16.2 RATIO (10-20); Calcium,Total 9.1 mg/dL (8.5-10.1); Chloride 108 mmol/L (98-107); Creatinine, Serum 1.67 mg/dL (0.55-1.02); EST Glomerular Filtration Rate 32 mL/min (>60); Est Glom Filt Rate - Afr Amer 39 mL/min (>60); Ferritin 114 ng/mL (8-252); Glucose 211 mg/dL (74-106); Iron 41 ug/dL (50-170); Iron Binding Capacity,Total 338 ug/dL (250-450); Sodium Level 142 mmol/L (136-145)
== END | disposition home or self-care (01) ==
LOC: LAB 10:06
PROVIDERS: PCP Internal Medicine; Referring Provider Nurse Practitioner Family; Visit Provider Nurse Practitioner Family
DX: R06.00 Dyspnea, unspecified (principal); E11.9 Type 2 diabetes mellitus without complications; I10 Essential (primary) hypertension; I44.7 Left bundle-branch block, unspecified; I25.5 Ischemic cardiomyopathy; E78.00 Pure hypercholesterolemia, unspecified; D64.9 Anemia, unspecified; Z95.5 Presence of coronary angioplasty implant and graft
CPT/HCPCS: 36415; 80048; 82728; 83540; 83550; 83880; 85025

== ENCOUNTER → 2024-04-11 | Outpatient (CLI) | payer MEDICARE, SELFPAY ==
[2024-04-11 11:36] LABS: Hemoglobin A1c 7.8 % (<=5.6)
== END | disposition home or self-care (01) ==
LOC: LAB 08:39
PROVIDERS: PCP Internal Medicine; Referring Provider Anesthesiology; Visit Provider Anesthesiology
DX: Z01.818 Encounter for other preprocedural examination (principal)
CPT/HCPCS: 36415; 83036; 84443

== ENCOUNTER → 2024-04-16 | Outpatient (CLI) | payer MEDICARE, SELFPAY ==
--- NOTE | 2024-04-16 06:19 | ECHOCS_ITS ---
Reason For Study Reason For Study: Dyspnea/SOB Procedure This was a 2D Doppler, Color Flow transthoracic echocardiogram. Contrast injection was performed. Exam performed in department. Left Ventricle Normal size and thickness. Inferior, septal and apical hypokinesis. Estimated LVEF 30%. Grade 2 diastolic dysfunction. Elevated left atrial pressures. Right Ventricle Normal right ventricle. Atria There is severe biatrial dilatation. Mitral Valve Severe mitral annular calcification. Mild mitral valve regurgitation. Tricuspid Valve Mild to moderate (1-2+) tricuspid valve insufficiency. Right ventricular systolic pressure estimated to be 55 mmHg. Aortic Valve Trisinus/trileaflet aortic valve. Mild (1+) aortic valve insufficiency. Pulmonic Valve The pulmonic valve is not well visualized. Great Vessels Normal sized aortic root. Pericardium/Pleural Trivial pericardial effusion. Medication Diluted definity 2ml given slow IV push to enhance endocardial definition. MMode/2D Measurements & Calculations LVIDd: 5.0 cm IVSd: 0.85 cm Ao root diam: 3.2 cm LVIDs: 4.1 cm LVPWd: 0.76 cm RVDd: 4.4 cm FS: 17.2 % LAV(MOD-bp): 61.3 ml LVAd ap4: 28.1 cm2 SV(MOD-sp4): 29.1 ml LAV(MOD-bp) Indexed: 32.8 ml/m2 LVLd ap4: 6.8 cm SI(MOD-sp4): 15.6 ml/m2 LAV(MOD-sp2): 58.8 ml EDV(MOD-sp4): 93.6 ml LAV(MOD-sp4): 56.9 ml EDV(sp4-el): 98.8 ml LVAs ap4: 23.2 cm2 LVLs ap4: 6.9 cm ESV(MOD-sp4): 64.5 ml ESV(sp4-el): 66.7 ml EF(MOD-sp4): 31.1 % EF(sp4-el): 32.5 % SV(sp4-el): 32.1 ml LA A4 area: 19.5 cm2 LA dimension(2D): 4.3 cm RA A4 area: 11.0 cm2 TAPSE: 2.0 cm Time Measurements MV dec time: 0.15 sec Doppler Measurements & Calculations MV E max hardik: 127.4 cm/sec Lat Peak E' Hardik: 8.9 cm/sec Med Peak E' Hardik: 4.4 cm/sec MV A max hardik: 92.0 cm/sec E/E' lat: 14.3 E/E' med: 28.6 MV E/A: 1.4 MV V2 max: 148.3 cm/sec MV dec slope: 867.6 cm/sec2 Ao V2 max: 161.1 cm/sec MV max P.8 mmHg Ao max P.4 mmHg MV V2 mean: 87.8 cm/sec Ao V2 mean: 102.2 cm/sec MV mean P.4 mmHg Ao mean P.8 mmHg MV V2 VTI: 35.4 cm Ao V2 VTI: 40.6 cm AV (velocity ratio): 0.71 AI max hardik: 348.4 cm/sec LV V1 max: 107.7 cm/sec PA V2 max: 106.1 cm/sec AI max P.6 mmHg LV V1 max P.6 mmHg AI dec slope: 137.2 cm/sec2 LV V1 mean P.4 mmHg AI P1/2t: 743.9 msec LV V1 mean: 71.9 cm/sec LV V1 VTI: 28.8 cm TR max hardik: 315.6 cm/sec TR max P.8 mmHg ECHO/Echo Complete W/ Contrast Interpretation Summary Inferior, septal and apical hypokinesis. Estimated LVEF 30%. Grade 2 diastolic dysfunction. Elevated left atrial pressures. There is severe biatrial dilatation. Severe mitral annular calcification. Mild mitral valve regurgitation. Mild to moderate (1-2+) tricuspid valve insufficiency. Right ventricular systolic pressure estimated to be 55 mmHg. Mild (1+) aortic valve insufficiency. Ordering Physician: Shaggy Garcia Referring Physician: Marisela Minaya Performed By: Breanna Caballero RDCS, RVT
--- NOTE | 2024-04-16 09:33 | STRESSREP ---
Stress Test Report Date: 04/16/2024 Procedure: Pharmacologic stress nuclear imaging study Indications: Dyspnea Consent: Per the patient Procedure: The patient underwent pharmacologic (Regadenoson 0.4mg ) evaluation with a peak heart rate of 77 beats per minute (51%predicted maximal heart rate) and a peak blood pressure of 130/68 mmHg. The baseline ECG demonstrated sinus rhythm with left bundle branch block. The peak pharmacologic ECG demonstrated no diagnostic changes secondary to baseline abnormalities. There were no cardiac dysrhythmias pretest, during pharmacologic infusion, or recovery. There was no complaint of chest discomfort during pharmacologic infusion or recovery. The patient was injected with 14.5 millicuries of technetium 99m Cardiolite and subsequently rest SPECT Cardiolite nuclear imaging was obtained in the horizontal long, vertical long, and short axis views. The patient underwent pharmacologic (Regadenoson) evaluation. The patient was injected with 44.6 millicuries of technetium 99m Cardiolite and subsequently stress SPECT Cardiolite nuclear imaging was obtained in the horizontal long, vertical long, and short axis views. A gated Cardiolite study at peak stress was obtained. The examination was stopped secondary to completion of protocol. Rest and stress SPECT Cardiolite nuclear imaging status post realignment, normalization, and attenuation correction demonstrate a mild to moderate size reversible perfusion defect of the apex and anterior wall suggestive of ischemia. There is end systolic thickening and brightening. The gated Cardiolite study demonstrates myocardial thickening and inward wall motion. The reported LVEF is 52%. Impression: 1. Pharmacologic (Regadenoson) evaluation 2. Peak pharmacologic ECG with no diagnostic changes secondary to baseline abnormality. 3. There were no cardiac dysrhythmias pretest, during pharmacologic infusion, or recovery. 5. Anterior reversible perfusion defect suggestive of ischemia. 6. The gated Cardiolite study reports an LVEF of 52%. This note was generated with [employer] in [place] software. It may contain incorrect words, spelling, and punctuation that were not noted in checking the note before signing.
== END | disposition home or self-care (01) ==
LOC: CVS 06:19
PROVIDERS: PCP Internal Medicine; Referring Provider Internal Medicine Cardiovascular Disease; Visit Provider Internal Medicine Cardiovascular Disease
DX: Z01.818 Encounter for other preprocedural examination (principal); R06.02 Shortness of breath; Z95.5 Presence of coronary angioplasty implant and graft
CPT/HCPCS: 78452; 93017; 93306; A9500; Q9957; A4216; C8929; J2785

== ENCOUNTER 2024-05-07 07:17 | Day surgery (SDC) | payer MEDICARE, SELFPAY ==
--- NOTE | 2024-04-26 09:30 | RAD_ITS ---
EXAM: XR Chest, 2 Views CLINICAL INDICATION: SHORTNESS OF BREATH TECHNIQUE: Frontal and lateral views of the chest. COMPARISON: No relevant prior studies available. FINDINGS: LUNGS AND PLEURAL SPACES: See below. HEART: Cardiomegaly with mild congestion. MEDIASTINUM: Unremarkable. Normal mediastinal contour. BONES/JOINTS: Unremarkable. No acute fracture. RAD/Chest PA and Lateral IMPRESSION: Cardiomegaly with mild congestion. Reading Location: [facility]
[2024-04-26 09:40] LABS: Hematocrit 31.6 % (37-47); Hemoglobin 10.4 g/dL (12.0-15.0); Mean Corp Hgb Conc 32.9 g/dL (32-36); Mean Corpuscular Hgb 29.5 pg (27.0-32.0); Mean Corpuscular Volume 89.5 fL (81-99); Mean Platelet Vol. 12.1 fl (6.2-12.0); Platelet Count 143 K/mm3 (150-450); RBC Distribution Width CV 14.4 % (11.6-14.6); RBC Distribution Width SD 46.2 fl (35.1-43.9); Red Blood Count 3.53 M/mm3 (4.2-5.4); White Blood Count 8.2 K/mm3 (4.4-11.0)
[2024-04-26 09:51] LABS: Prothrombin Time (Protime)PT. 13.8 SECONDS (11.7-14.9)
[2024-04-26 10:41] LABS: Anion Gap 13 (5-15); BUN 34 mg/dL (4-19); BUN/Creat Ratio 21.2 RATIO (10-20); Calcium,Total 9.4 mg/dL (7.6-11.0); Carbon Dioxide 20.9 mmol/L (21.0-32.0); Chloride 108 mmol/L (98-108); Creatinine, Serum 1.59 mg/dL (0.70-1.20); EST Glomerular Filtration Rate 35 (>60); Glucose 138 mg/dL (70-99); Potassium 4.4 mmol/L (3.3-5.1); Sodium Level 142 mmol/L (133-145)
[2024-05-06 09:31] VITALS: BMI 42.0
--- NOTE | 2024-05-06 20:11 | PCM.HP.BLA ---
History and Physical Date of Admission: 05/07/24 This is a 73-year-old white female who presents today for a heart catheterization. She has a history of shortness of breath/dyspnea, and abnormal ECG with a left bundle branch block pattern, and abnormal transthoracic echocardiogram appearing compatible with an underlying cardiomyopathy, and an abnormal pharmacologic stress nuclear imaging study superimposed upon a history of hyperlipidemia, hypertension, and diabetes mellitus. She underwent a heart catheterization 09/15/2020 that showed LAD stenosis of 80%. She proceeded with drug-eluting stent. She had a stress test 04/16/2024 was abnormal and she will proceed with [facility] to evaluate further. She denies chest, arm, jaw, or neck discomfort. She denies palpitations or claudication. She acknowledges intermittent bilateral lower extremity edema. She acknowledges shortness of breath activity, shortness of breath at rest, and occasional orthopnea. She acknowledges cough, snoring, and intermittent wheezing. She acknowledges lightheadedness. She denies dizziness, near-syncope, or syncope. She acknowledges ongoing fatigue. Intake Vital Signs: See EMR Intake Visit Reasons: [facility] Application Services Manager Required: No Accompanied by: Is patient in pain?: No Allergies pravastatin Adverse Reaction (Verified 03/29/24 08:43) myaligas Medications: See EMR Ejection fraction %: 55 Have you fallen in the past year?: No [facility] Medical History Carotid artery stenosis Presence of stent in coronary artery (~09/15/20) Atherosclerotic heart disease of [place] coronary artery without angina pectoris CAD (coronary artery disease) Dyspnea Cardiomyopathy LBBB (left bundle branch block) Type 2 diabetes mellitus Hypothyroidism GERD (gastroesophageal reflux disease) Decreased cardiac ejection fraction Abnormal echocardiogram Abnormal stress test Pure hypercholesterolemia Essential hypertension Surgical History Presence of coronary angioplasty implant and graft (~09/15/20) S/P PTCA (percutaneous transluminal coronary angioplasty) H/O total hysterectomy with bilateral salpingo-oophorectomy (BSO) History of cholecystectomy History of repair of right rotator cuff Family History Mother CVA (cerebral vascular accident), Onset Age: 67Brother Myocardial infarction, Onset Age: 50Father Cancer, Onset Age: 57 Social History Smoking Status: Former smoker alcohol intake: current alcohol intake frequency: holidays/special occasions only substance use type: does not use caffeine: Yes Type: carbonated beverages Number of servings: 1 and coffee Number of servings: 4 ROS Const Const: Positive for fatigue and night sweats (occ); Negative for weakness, body ache, fever(s), headache(s), chills, frequent falls, daytime sleepiness, difficulty sleeping, excessive sweating, weight gain or weight loss Eyes Eyes: Positive for blurry vision (eye doctor following); Negative for blind spots, loss of peripheral vision, transient loss of vision, change in vision, double vision, floaters or tunnel vision ENT ENT: Positive for balance problems and neck pain (right side); Negative for headache(s), dizziness, tinnitus, Nosebleed/epistaxis or bleeding gums Cardio Chest Pain: No Palpitations: No Edema: Bilateral Muscle aches with walking: None Resp Respiratory: Positive for SOB with activity, SOB at rest, SOB orthopnea\SOB lying down (occ head of bed elevated), Cough, snoring and wheezing; Negative for Coughing up blood/hemoptysis, chest congestion or paroxysmal nocturnal dyspnea GI GI: Negative nausea, vomiting, heartburn, bloating, vomiting blood/hematemesis, bright, red blood in stools or black,tarry stools : Positive for frequent nighttime urination/ nocturia; Negative for hematuria Musc Musc: Positive for joint pain and balance problems; Negative for muscle aches/ myalgia or muscle weakness Skin Skin: Positive for non-healing lesions and wounds; Negative rash or unusual bruising Neuro Neuro: Positive for lightheadedness and blurry vision (eye doctor following); Negative for dizziness, near syncope, syncope, orthostatic symptoms, frequent falls, headache(s), weakness or double vision Baljeet Hematologic/Lymphatic: Positive for easy bleeding, easy bruising and enlarged lymph nodes (right neck) Endo Endo: Positive for fatigue and cold intolerance; Negative for heat intolerance or excessive sweating Psych Psych: Negative for anxiety or depression Allergy Allergy/Immunology: Negative for hives and Negative for rash Cardiology Exam Const Appearance: cooperative, healthy appearing, comfortable and no acute distress Nutritional Appearance: well nourished and obese Orientation: alert, awake and oriented x3 Head Head: normal to inspection Ears: hearing grossly normal bilaterally Nose: external nose normal Face and Sinus: face symmetric Mouth: moist mucous membranes Eyes General: appearance normal, both eyes and all related structures Eyelids: eyelids normal EOM: EOM intact bilaterally Neck Neck: normal visual inspection and no JVD Carotids: normal carotid upstroke Chest Chest inspection: normal inspection of the chest, symmetric chest movement and normal respiratory effort; Negative cough Auscultation: Bilateral: Diminished Lung Sounds Cardio Rate: regular rate Rhythm: regular rhythm Heart sounds: S1 normal and S2 normal; Negative rub, gallop or murmur GI GI: normal to inspection and obese Neuro General: patient alert, patient awake, patient oriented x3 and CN's II-XI intact bilaterally Skin Skin: no rashes or lesions noted Extremities Pulses: Normal: Right Posterior Tibial Pulse, Left Posterior Tibial Pulse, Right Radial Pulse and Left Radial Pulse Lower Extremity Edema: None: Bilateral Psych Psychological: normal affect Supplemental Info Supplemental Information Echocardiogram 01/18/2022 Interpretation Summary The study was technically difficult. Contrast injection was performed. Based upon the 2D echocardiographic and contrast enhanced images obtained there appears to be grossly normal left ventricular size, wall motion, and systolic function. The estimated ejection fraction is 55 %. The left atrium is mildly enlarged. There is moderate mitral annular calcification. Extension of the mitral annular calcification onto the base of the posterior mitral valve leaflet. Trivial mitral valve insufficiency. Trivial tricuspid valve insufficiency. Mild focal aortic valve calcification. Right ventricular systolic pressure estimated to be 39 mmHg. Diastolic function is indeterminate. Carotid Duplex Ultrasound 01/2024 Interpretation Summary Mild (<50%) stenosis right extracranial internal carotid. Severe (>70%) stenosis left extracranial internal carotid. Patent and antegrade vertebrals bilaterally. Carotid Duplex Ultrasound 11/19/2021 Interpretation Summary Minimal irregular plaque at the proximal right internal carotid artery with less than 50% stenosis Less than 50% stenosis right external carotid artery Smooth plaque at the proximal left internal carotid artery with 50 to 69% stenosis. Less than 50% stenosis left external carotid artery Patent and antegrade vertebral arteries bilaterally Previous examination of April 29, 2019 had demonstrated less than 50% stenosis of the left internal carotid artery Cardiac Catheterization 09/15/2020 CONCLUSIONS Elevated Left Ventricular End Diastolic Pressure Segmented LV systolic dysfunction- Moderate LVEF: by LV gram 30 % [place] Multivessel CAD RECOMMENDATIONS Risk factor modification Medical therapy Referred for immediate PCI Case discussed / reviewed with Dr. Michel of Interventional Cardiology CORONARY ANGIOGRAPHY DOMINANCE: Right Dominant LEFT HEART ASSESSMENT Left Ventricular Ejection Fraction: by LV Gram 30 % Anterior Hypokinesis. Apical Hypokinesis Elevated Left Ventricular End Diastolic Pressure LVEDP: 38 mmHg LEFT MAIN: Angiographically normal LEFT ANTERIOR DESCENDING ARTERY: PROX LAD: Mild luminal irregularities MID LAD: diffuse: irregular: 85 % Stenosis CIRCUMFLEX ARTERY: OSTIAL CIRC: 25 % Stenosis PROX CIRC: eccentric: 25 % Stenosis RAMUS: Angiographically normal RIGHT CORONARY ARTERY: PROX RCA: Mild luminal irregularities AORTIC ROOT: Angiographically normal Cardiac Intervention 09/15/2020 PCI Cardiac Cath Report PCI Report: Procedure performed; 1. Successful percutaneous core intervention/PCI of diffuse mid LAD 80% with predilatation and placement of drug-eluting stent Synergy 2.5 x 20 mm Postdilated with 2.5 x 15 mm NC Emerge balloon and achievement of excellent result With reduction of stenosis from 80% to 0% in the mid LAD and maintenance of JENARO-3 flow. 2. Placement of TR band to right radial artery arteriotomy site. Stress Test 04/16/2024: Impression: 1. Pharmacologic (Regadenoson) evaluation 2. Peak pharmacologic ECG with no diagnostic changes secondary to baseline abnormality. 3. There were no cardiac dysrhythmias pretest, during pharmacologic infusion, or recovery. 5. Anterior reversible perfusion defect suggestive of ischemia. 6. The gated Cardiolite study reports an LVEF of 52%. SUGAR 07/26/2023: Interpretation Summary Right SUGAR 1.08, normal. TBI and Doppler/PVR waveforms of the right leg normal at rest. Right lower extremity with abnormal response to exercise and post exercise SUGAR in the moderate category. Left SUGAR 1.12, normal. TBI and Doppler/PVR waveforms of the left leg normal at rest. Left lower extremity with abnormal response to exercise and post exercise SUGAR in the moderate category. Assessment and Plan Assessment and Plan (1) Dyspnea: Status: Acute Qualifiers: Dyspnea type: dyspnea on exertion Qualified Code(s): R06.09 - Other forms of dyspnea Plan: This remains her main concern. This is felt to be multifactorial. To evaluate cardiac component further, she underwent a twelve-lead ECG on 03/29/2024 that showed sinus rhythm at 64 bpm. She underwent a repeat echocardiogram and stress test to help assess further. This will also provide cardiac clearance for possible carotid endarterectomy. Based on stress test results, she will proceed with [facility]. Depending on results, further recommendation will be made. (2) Presence of stent in coronary artery: Status: Chronic Comment: PCI/DOROTHY to LAD 09/15/20 Dr. Michel Plan: Pharmacological stress test from April 2024 was considered to be abnormal. She proceeded with heart catheterization in September 2020 that resulted in drug-eluting stent placement to LAD. (3) Essential hypertension: Status: Chronic Plan: This is improved compared to previous. Depending on overall workup, will consider being more aggressive blood pressure control. (4) Pure hypercholesterolemia: Status: Chronic Plan: This is managed with primary care provider. She will continue risk factor and lifestyle modification. She will continue Crestor 20 mg p.o. daily. (5) Type 2 diabetes mellitus: Status: Acute Plan: She was reminded of the importance of diabetic control in relation to cardiovascular health. With her history of coronary artery disease, she could be considered for SGLT2 inhibitor or GLP-1. This will be considered depending on workup. (6) LBBB (left bundle branch block): Status: Acute Plan: Twelve-lead ECG on 03/29/2024 shows sinus rhythm with left bundle branch block at a rate of 64 bpm. On account of this, she will proceed with pharmacologic nuclear stress test.
--- NOTE | 2024-05-07 10:30 | CL.D_ITS ---
Patient Name: KANA ORTIZ Study Date: 05/07/2024 Performing: Rocio Yi MD Ht: 152.4 inches 387.096 cm : 1950 Wt: 97.51 lbs 44.234 kg Age: 73 Gender: female BSA: 2.7 PROCEDURE(S) PERFORMED [id number]-([id number])C/[facility] CLINICAL PROFILE AND INDICATIONS Indications: Cardiomyopathy Heart Failure: None Stress/Imaging Stress Test w/SPECT MPI: Yes Result: Positive Intermediate RiskStress Test with SPECT MPI: Positive Intermediate Risk CONCLUSIONS 40% Prox LAD; Stent to Mid LAD patent 50% ostial LCX RECOMMENDATIONS Medical therapy DESCRIPTION OF PROCEDURE The patient arrived to the procedure lab. The risks and benefits of the procedure as well as a full description of our services here and current unavailability of surgical backup were fully explained to the patient and/or their significant other prior to the catheterization. The Timeout was completed, verifying the correct patient and procedure. The patient's procedural site was prepped and draped in the usual fashion. Local anesthetic was given subcutaneously to right radial region with Lidocaine 2%. Using a modified Seldinger technique, arterial access was obtained via the right radial artery, a 6Fr sheath was inserted. Left Coronary Artery selective angiography was performed in multiple views using a 5 Fr. 4.0 [place] catheter. Right Coronary Artery selective angiography was then performed in multiple views using a 5 Fr. 4.0 [place] catheter.The arterial sheath was pulled and a TR Band was applied for hemostasis. 8cc of air applied CORONARY ANGIOGRAPHY DOMINANCE: Right Dominant LEFT MAIN: Angiographically normal LEFT ANTERIOR DESCENDING ARTERY: LAD: Tubular 40% Proximal lesion in LAD RAMUS: Tubular 40% Proximal lesion in Ramus RIGHT CORONARY ARTERY: RCA: Tubular 50% Proximal lesion in RCA COMPLICATIONS No Complications PROCEDURE MEDICATIONS Fentanyl 50 mcg IV Versed 1 mg IV Oxygen: 2 L/min via nasal cannula Heparin given IA 05/07/2024 09:59:08 Verapamil 2.5mg, Ntg 200mcgs, 2000 units of Heparin given IA 05/07/2024 09:59:08 SUMMARY OF HEMODYNAMIC DATA Time AIR REST ECG 07:42:43 AO 181/76 (115) SA 10:04:56 AO 182/86 (119) 10:08:21 ECG 10:28:33 AIR REST 10:28:42 Signed By Rocio Yi MD On 05/07/2024 10:29:48 Rocio Yi MD
== END 2024-05-07 12:10 | disposition home or self-care (01) ==
PROVIDERS: Physician Assistant Medical; PCP Internal Medicine; Referring Provider Internal Medicine Cardiovascular Disease; Visit Provider Internal Medicine Cardiovascular Disease
DX: I25.10 Atherosclerotic heart disease of native coronary artery without angina pectoris (principal); I42.9 Cardiomyopathy, unspecified; E11.9 Type 2 diabetes mellitus without complications; I44.7 Left bundle-branch block, unspecified; I10 Essential (primary) hypertension; E78.00 Pure hypercholesterolemia, unspecified; Z95.5 Presence of coronary angioplasty implant and graft; Z79.899 Other long term (current) drug therapy; Z87.891 Personal history of nicotine dependence
CPT/HCPCS: 36415; 71046; 80048; 85027; 85610; 93454; 99152; 99153; Q9967; C1769; C1894

== ENCOUNTER 2024-05-28 10:07 | Inpatient (IN) | payer MEDICARE, SELFPAY ==
--- NOTE | 2024-04-09 16:45 | PAT.ANE_ITS ---
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 When Was Last Pacemaker Check QUESTION #4 FULL TEXT: You/Your Family Experience fever (hyperthermia) with Anesthesia Last Oral Intake Last Oral intake: Last Oral Intake NPO since Meds taken in AM with sips of water? Meds patient instructed to take am of surgery PONV PONV - golf superintendent: PONV - golf superintendent Female Yes 04/09/24 13:57 HX of Motion Sickness No 04/09/24 13:57 HX of N/V After Surgery No 04/09/24 13:57 Non-Smoker Yes 04/09/24 13:57 Duration of Surgery greater Yes 04/09/24 13:57 than 60 minutes Number of Risk Factors 3 04/09/24 13:57 PONV Score Moderate Risk 04/09/24 13:57 Height & Weight Height & Weight: Anesthesia: Height & Weight Height 5 ft 02/02/24 09:41 Respiratory Assessment Respiratory Assessment - golf superintendent: Respiratory Tract Infection Hx - golf superintendent Hx Respiratory Tract Infection No 04/09/24 13:57 STOP Sleep Apnea STOP Sleep Apnea - golf superintendent: STOP Sleep Apnea - golf superintendent Hx Hypertension Yes: CONTROLLED ON MED 04/09/24 13:57 Hx Sleep Apnea No 04/09/24 13:57 CPAP No 04/09/24 13:57 BIPAP No 04/09/24 13:57 Do you snore loudly (louder No 04/09/24 13:57 than talking or can be heard Do you often feel tired/ No 04/09/24 13:57 fatigued/ sleepy during daytime? Has anyone observed you stop No 04/09/24 13:57 breathing during sleep? STOP Results Negative 04/09/24 13:57 QUESTION #5 FULL TEXT : Do you snore loudly (louder than talking or can be heard through closed doors)? Tobacco Use History Tobacco Use History - golf superintendent: Tobacco Use History - golf superintendent Tobacco Use Smoking Status Former smoker 04/09/24 13:57 Hx Tobacco Use No 04/09/24 13:57 Years Smoking Packs Smoked per Day Smoking Cessation Date was No - quit smoking greater 04/09/24 13:57 within the last 15 years than 15 years ago Hx Smoking Cessation Date 02/13/71 04/09/24 13:57 Hx Smoking Cessation No 04/09/24 13:57 Counseling Hematologic Medial History Hematologic Hx - golf superintendent: Hematologic Medical Hx - dietetic aide Hx of Blood Transfusion No 04/09/24 13:57 Hx of Transfusion in last 3 No 04/09/24 13:57 Months Date of Last Transfusion (if within last 3 months) Ever experience any problems No 04/09/24 13:57 with transfusion(s)? Specify any problems Hx of Preganancy in last 3 No 04/09/24 13:57 Months Nurse Filling Out Transfusion VCHRISTIN 04/09/24 13:57 & Questions: Date: 04/09/24 04/09/24 13:57 Time: 13:58 04/09/24 13:57 Patient unable to answer at this time (ie. confused, unrespo /Reproduction History /Reproductive History - golf superintendent: /Reproductive Hx- golf superintendent Hx Now Gestational Age (in weeks): EDC: Hx Hx Para Hx Section [facility] Medical History (Updated 04/09/24 @ 13:57 by Joselin Diaz) Wears glasses Thyroid disease Diabetes Arthritis Blackout Short of breath on exertion Chronic cough Leg cramps History of edema History of echocardiogram History of stress test Cardiology follow-up encounter Carotid artery stenosis Presence of stent in coronary artery (~09/15/20) Atherosclerotic heart disease of [place] coronary artery without angina pectoris CAD (coronary artery disease) Dyspnea Cardiomyopathy LBBB (left bundle branch block) Type 2 diabetes mellitus Hypothyroidism GERD (gastroesophageal reflux disease) Decreased cardiac ejection fraction Abnormal echocardiogram Abnormal stress test Pure hypercholesterolemia Essential hypertension Home Medications ?Medication ?Instructions ?Recorded ?Last Taken ?Type glimepiride 4 mg tablet 2 mg PO BID diabetes 1 Unknown History aspirin 81 mg chewable tablet 81 mg PO DAILY heart hea lth 09/17/20 Unknown History levothyroxine 25 mcg tablet 50 mcg PO DAILY thyroid Unknown History carvedilol 25 mg tablet 25 mg PO BID #180 TABLETS Unknown Rx clopidogrel 75 mg tablet 75 mg PO DAILY #90 TABLETS 1 02/19/23 Unknown Rx furosemide 40 mg tablet 40 mg PO DAILY #90 TABLETS 1 02/19/23 Unknown Rx lisinopril 10 mg tablet 10 mg PO DAILY blood pressur e 12/27/23 Unknown History rosuvastatin 20 mg tablet 20 mg PO DAILY 04/09/24 Unkn own History Allergy/AdvReac Type Severity Reaction Status Date / Time pravastatin AdvReac myaligas Verified 04/09/24 13:40 Family History Mother CVA (cerebral vascular accident), Onset Age: 67 Brother Myocardial infarction, Onset Age: 50 Father Cancer, Onset Age: 57 Surgical History (Updated 04/09/24 @ 13:57 by Joselin Diaz) History of cardiac catheterization Presence of coronary angioplasty implant and graft (~09/15/20) S/P PTCA (percutaneous transluminal coronary angioplasty) H/O total hysterectomy with bilateral salpingo-oophorectomy (BSO) History of cholecystectomy History of repair of right rotator cuff Social History Smoking Status: Former smoker alcohol intake: current alcohol intake frequency: holidays/special occasions only substance use type: does not use caffeine: Yes Type: carbonated beverages Number of servings: 1 and coffee Number of servings: 4 Audit: Pertinent Findings Pertinent Findings EKG Perinent findings: March 29, 2024 sinus rhythm left bundle branch block with left axis deviation. Old anterior infarct. No significant change compared to EKG of June 19, 2023. Stress test pertinent findings: June 23, 2020. Ejection fraction 37%. There is an area of previous myocardial infarction involving portions of the distal anterior distal anteroseptal anterior apical and septal apical segments. There is some changes suggestive juan david-infarct related myocardial ischemia in these areas as well. Echo (EF%) pertinent findings: January 18, 2022. Ejection fraction 55%. Right ventricular systolic pressure is 39 mmHg. No aortic stenosis noted. Heart catheterization pertinent findings: September 15, 2020. Ejection fraction 30%. Interventional PCI of the mid LAD and placement of drug-eluting stent. Consult pertinent findings: March 29, 2024. Ada RODRIGUEZ. 1. Dyspnea-May be multifactorial. Plan for repeat echocardiogram and stress test. 2. Status post stents in the coronary artery in September 2020. She continues to have shortness of breath. Follow-up echo and stress. Recommendation Anesthesia Recommendation Anesthesia recommendation: F/U recommended (Cardiology has recommended a follow- up echo and stress test. Will wait for results.)
--- NOTE | 2024-04-18 17:32 | PAT.ANESEVAL ---
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 When Was Last Pacemaker Check QUESTION #4 FULL TEXT: You/Your Family Experience fever (hyperthermia) with Anesthesia Last Oral Intake Last Oral intake: Last Oral Intake NPO since Meds taken in AM with sips of water? Meds patient instructed to take am of surgery PONV PONV - advertising agent: PONV - advertising agent Female Yes 04/09/24 13:57 HX of Motion Sickness No 04/09/24 13:57 HX of N/V After Surgery No 04/09/24 13:57 Non-Smoker Yes 04/09/24 13:57 Duration of Surgery greater Yes 04/09/24 13:57 than 60 minutes Number of Risk Factors 3 04/09/24 13:57 PONV Score Moderate Risk 04/09/24 13:57 Height & Weight Height & Weight: Anesthesia: Height & Weight Height 5 ft 03/29/24 08:43 Respiratory Assessment Respiratory Assessment - advertising agent: Respiratory Tract Infection Hx - advertising agent Hx Respiratory Tract Infection No 04/09/24 13:57 STOP Sleep Apnea STOP Sleep Apnea - advertising agent: STOP Sleep Apnea - advertising agent Hx Hypertension Yes: CONTROLLED ON MED 04/09/24 13:57 Hx Sleep Apnea No 04/09/24 13:57 CPAP No 04/09/24 13:57 BIPAP No 04/09/24 13:57 Do you snore loudly (louder No 04/09/24 13:57 than talking or can be heard Do you often feel tired/ No 04/09/24 13:57 fatigued/ sleepy during daytime? Has anyone observed you stop No 04/09/24 13:57 breathing during sleep? STOP Results Negative 04/09/24 13:57 QUESTION #5 FULL TEXT : Do you snore loudly (louder than talking or can be heard through closed doors)? 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 Specify any problems Hx of Preganancy in last 3 No 04/09/24 13:57 Months Nurse Filling Out Transfusion VCHRISTIN 04/09/24 13:57 & Questions: Date: 04/09/24 04/09/24 13:57 Time: 13:58 04/09/24 13:57 Patient unable to answer at this time (ie. confused, unrespo /Reproduction History /Reproductive History - advertising agent: /Reproductive Hx- advertising agent Hx Now Gestational Age (in weeks): EDC: Hx Hx Para Hx Section S[facility] Medical History (Updated 04/09/24 @ 13:57 by Joselin Diaz) Wears glasses Thyroid disease Diabetes Arthritis Blackout Short of breath on exertion Chronic cough Leg cramps History of edema History of echocardiogram History of stress test Cardiology follow-up encounter Carotid artery stenosis Presence of stent in coronary artery (~09/15/20) Atherosclerotic heart disease of [place] coronary artery without angina pectoris CAD (coronary artery disease) Dyspnea Cardiomyopathy LBBB (left bundle branch block) Type 2 diabetes mellitus Hypothyroidism GERD (gastroesophageal reflux disease) Decreased cardiac ejection fraction Abnormal echocardiogram Abnormal stress test Pure hypercholesterolemia Essential hypertension Home Medications ?Medication ?Instructions ?Recorded ?Last Taken ?Type glimepiride 4 mg tablet 2 mg PO BID diabetes 07/31/20 Unknown History aspirin 81 mg chewable tablet 81 mg PO DAILY heart health 09/17/20 Unknown History levothyroxine 25 mcg tablet 50 mcg PO DAILY thyroid 02/21/23 Unknown History carvedilol 25 mg tablet 25 mg PO BID #180 TABLETS 06/12/23 Unknown Rx clopidogrel 75 mg tablet 75 mg PO DAILY #90 TABLETS 12/21/23 Unknown Rx furosemide 40 mg tablet 40 mg PO DAILY #90 TABLETS 12/21/23 Unknown Rx lisinopril 10 mg tablet 10 mg PO DAILY blood pressure 12/27/23 Unknown History rosuvastatin 20 mg tablet 20 mg PO DAILY 04/09/24 Unknown History Allergy/AdvReac Type Severity Reaction Status Date / Time pravastatin AdvReac myaligas Verified 04/09/24 13:40 Family History Mother CVA (cerebral vascular accident), Onset Age: 67 Brother Myocardial infarction, Onset Age: 50 Father Cancer, Onset Age: 57 Surgical History (Updated 04/09/24 @ 13:57 by Joselin Diaz) History of cardiac catheterization Presence of coronary angioplasty implant and graft (~09/15/20) S/P PTCA (percutaneous transluminal coronary angioplasty) H/O total hysterectomy with bilateral salpingo-oophorectomy (BSO) History of cholecystectomy History of repair of right rotator cuff Social History Smoking Status: Former smoker alcohol intake: current alcohol intake frequency: holidays/special occasions only substance use type: does not use caffeine: Yes Type: carbonated beverages Number of servings: 1 and coffee Number of servings: 4 Audit: Pertinent Findings HISTORY of Pertinent Findings History of Pertinent Findings: EKG Pertinent Findings EKG Perinent findings March 29, 2024 sinus 04/09/24 17:00 rhythm left bundle branch block with left axis deviation. Old anterior infarct. No significant change compared to EKG of June 19, 2023. Stress Test Pertinent Findings Stress test pertinent findings June 23, 2020. Ejection 04/09/24 16:52 fraction 37%. There is an area of previous myocardial infarction involving portions of the distal anterior distal anteroseptal anterior apical and septal apical segments. There is some changes suggestive juan david -infarct related myocardial ischemia in these areas as well. Echo Pertinent Findings Echo (EF%) pertinent findings January 18, 2022. Ejection 04/09/24 16:50 fraction 55%. Right ventricular systolic pressure is 39 mmHg. No aortic stenosis noted. Heart Catheterization Pertinent Findings Heart catheterization September 15, 2020. Ejection 04/09/24 17:00 pertinent findings fraction 30%. Interventional PCI of the mid LAD and placement of drug-eluting stent. Consult Pertinent Findings Consult pertinent findings March 29, 2024. 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 1. Dyspnea-May be multifactorial. Plan for repeat echocardiogram and stress test. 2. Status post stents in the coronary artery in September 2020. She continues to have shortness of breath. Follow-up echo and stress. Pertinent Findings Stress test pertinent findings: April 16, 2024. Ejection fraction is 52%. Anterior reversible perfusion defect suggestive of ischemia. Echo (EF%) pertinent findings: April 16, 2024. Ejection fraction of 30%. Inferior, septal and apical hypokinesis. Right ventricular systolic pressure is 55 mmHg. Recommendation Anesthesia Recommendation Anesthesia recommendation: F/U recommended (Stress test once again indicates ischemia in the anterior wall. This cardiology believe this is stable or does this need to be investigated with a catheterization ?)
--- NOTE | 2024-05-14 19:28 | PAT.ANE_ITS ---
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 When Was Last Pacemaker Check QUESTION #4 FULL TEXT: You/Your Family Experience fever (hyperthermia) with Anesthesia Last Oral Intake Last Oral intake: Last Oral Intake NPO since Meds taken in AM with sips of water? Meds patient instructed to take am of surgery PONV PONV - hot metal mixer operator: PONV - hot metal mixer operator Female Yes 05/14/24 10:57 HX of Motion Sickness No 05/14/24 10:57 HX of N/V After Surgery No 05/14/24 10:57 Non-Smoker Yes 05/14/24 10:57 Duration of Surgery greater Yes 05/14/24 10:57 than 60 minutes Number of Risk Factors 3 05/14/24 10:57 PONV Score Moderate Risk 05/14/24 10:57 Height & Weight Height & Weight: Anesthesia: Height & Weight Height 5 ft 03/29/24 08:43 Respiratory Assessment Respiratory Assessment - hot metal mixer operator: Respiratory Tract Infection Hx - hot metal mixer operator Hx Respiratory Tract Infection No 05/14/24 10:57 STOP Sleep Apnea STOP Sleep Apnea - hot metal mixer operator: STOP Sleep Apnea - hot metal mixer operator Hx Hypertension Yes 05/14/24 10:57 Hx Sleep Apnea No 05/14/24 10:57 CPAP No 05/14/24 10:57 BIPAP No 05/14/24 10:57 Do you snore loudly (louder No 05/14/24 10:57 than talking or can be heard Do you often feel tired/ No 05/14/24 10:57 fatigued/ sleepy during daytime? Has anyone observed you stop No 05/14/24 10:57 breathing during sleep? STOP Results Negative 05/14/24 10:57 QUESTION #5 FULL TEXT : Do you snore loudly (louder than talking or can be heard through closed doors)? 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 Specify any problems Hx of Preganancy in last 3 No 05/14/24 10:57 Months Nurse Filling Out Transfusion DSCHRIBER 05/14/24 10:57 & Questions: Date: 05/14/24 05/14/24 10:57 Time: 10:57 05/14/24 10:57 Patient unable to answer at this time (ie. confused, unrespo /Reproduction History /Reproductive History - hot metal mixer operator: /Reproductive Hx- hot metal mixer operator Hx Now Gestational Age (in weeks): EDC: Hx Hx Para Hx Section SAB PFSH Medical History (Updated 05/14/24 @ 10:56 by Itzel Mccall) Wears glasses Thyroid disease Diabetes Arthritis Blackout Short of breath on exertion Chronic cough Leg cramps History of edema History of echocardiogram History of stress test Cardiology follow-up encounter Carotid artery stenosis Presence of stent in coronary artery (~09/15/20) Atherosclerotic heart disease of [place] coronary artery without angina pectoris CAD (coronary artery disease) Dyspnea Cardiomyopathy LBBB (left bundle branch block) Type 2 diabetes mellitus Hypothyroidism GERD (gastroesophageal reflux disease) Decreased cardiac ejection fraction Abnormal echocardiogram Abnormal stress test Pure hypercholesterolemia Essential hypertension Home Medications ?Medication ?Instructions ?Recorded ?Last Taken ?Type glimepiride 4 mg tablet 2 mg PO BID diabetes 2 1 05/07/24 History aspirin 81 mg chewable tablet 81 mg PO DAILY heart hea lth 09/17/20 05/07/24 History levothyroxine 25 mcg tablet 50 mcg PO DAILY thyroid 05/07/24 History carvedilol 25 mg tablet 25 mg PO BID #180 TABLETS 05/07/24 Rx clopidogrel 75 mg tablet 75 mg PO DAILY #90 TABLETS 1 02/19/23 05/07/24 Rx furosemide 40 mg tablet 40 mg PO DAILY #90 TABLETS 1 02/19/23 Unknown Rx lisinopril 10 mg tablet 10 mg PO DAILY blood pressur e 12/27/23 05/07/24 History rosuvastatin 20 mg tablet 20 mg PO DAILY 04/09/2404/14 History Allergy/AdvReac Type Severity Reaction Status Date / Time pravastatin AdvReac myaligas Verified 05/14/24 10:52 Family History Mother CVA (cerebral vascular accident), Onset Age: 67 Brother Myocardial infarction, Onset Age: 50 Father Cancer, Onset Age: 57 Surgical History (Updated 05/14/24 @ 10:56 by Itzel Mccall) History of cardiac catheterization Presence of coronary angioplasty implant and graft (~09/15/20) S/P PTCA (percutaneous transluminal coronary angioplasty) H/O total hysterectomy with bilateral salpingo-oophorectomy (BSO) History of cholecystectomy History of repair of right rotator cuff Social History Smoking Status: Former smoker alcohol intake: current alcohol intake frequency: holidays/special occasions only substance use type: does not use caffeine: Yes Type: carbonated beverages Number of servings: 1 and coffee Number of servings: 4 Audit: Pertinent Findings HISTORY of Pertinent Findings History of Pertinent Findings: EKG Pertinent Findings EKG Perinent findings March 29, 2024 sinus 04/09/24 17:00 rhythm left bundle branch block with left axis deviation. Old anterior infarct. No significant change compared to EKG of June 19, 2023. Stress Test Pertinent Findings Stress test pertinent findings April 16, 2024. Ejection 04/18/24 17:42 fraction is 52%. Anterior reversible perfusion defect suggestive of ischemia. Stress test pertinent findings June 23, 2020. Ejection 04/09/24 16:52 fraction 37%. There is an area of previous myocardial infarction involving portions of the distal anterior distal anteroseptal anterior apical and septal apical segments. There is some changes suggestive juan david -infarct related myocardial ischemia in these areas as well. Echo Pertinent Findings Echo (EF%) pertinent findings April 16, 2024. Ejection 04/18/24 17:42 fraction of 30%. Inferior, septal and apical hypokinesis. Right ventricular systolic pressure is 55 mmHg. Echo (EF%) pertinent findings January 18, 2022. Ejection 04/09/24 16:50 fraction 55%. Right ventricular systolic pressure is 39 mmHg. No aortic stenosis noted. Heart Catheterization Pertinent Findings Heart catheterization September 15, 2020. Ejection 04/09/24 17:00 pertinent findings fraction 30%. Interventional PCI of the mid LAD and placement of drug-eluting stent. Consult Pertinent Findings Consult pertinent findings March 29, 2024. Ada INSPECTOR BALL POINTS- 04/09/24 17:00 C. 1. Dyspnea-May be multifactorial. Plan for repeat echocardiogram and stress test. 2. Status post stents in the coronary artery in September 2020. She continues to have shortness of breath. Follow-up echo and stress. Pertinent Findings Heart catheterization pertinent findings: May 07, 2024. LAD has a 40% proximal lesion. Ramus has a 40% proximal lesion. Right coronary artery has 50% proximal and mid lesions. 50% ostial lesion in the left circumflex. Recommendation is medical therapy at this point Recommendation Anesthesia Recommendation Anesthesia recommendation: OPTIMIZED for anesthesia
[2024-05-28] VITALS (21 sets, daily range): BP systolic 105–170; BP diastolic 46–97; PULSE 56–86; RESP 14–20; TEMP 36.1–36.4; O2SAT 92–99; BMI 39.4; BMI 39.6
[2024-05-28] MEDS: 0.9% Normal Saline (1000mL) 1,000 ML 15 ML IV (06:23)
--- NOTE | 2024-05-28 06:39 | PCM.PRE.AN2 ---
ASA Classification* ASA Classification ASA Classification: 3 Assessment & Plan Anesthesia* Anesthesia Assessment Anesthesia Assessment: Discussed sedation and/or anesthesia options, risks, benefits, and alternatives with patient/parents/legal guardian/POA. Questions invited. The patient/parents/legal guardian/POA seems to understand and agrees to proceed with anesthesia plan. Reviewed the physical assessment, medical history, allergy history and patient home medications list prior to surgery/procedure/anesthetic and documented any changes. Performed airway and anesthesia risk assessments. Anesthesia Type Anesthesia Type: General History Source History Obtained from:: Patient and Chart Anesthesia Focused Assessment* Temperature: 97.0 F Pulse Rate: 59 Blood Pressure: 147/56 Respiratory Rate: 20 Pulse Ox: 97 Oxygen Delivery Method: Room Air Airway Assessment Mouth opens: >3 cm Mallampati Score: IV Teeth Condition: Dentures (Patient has full upper and lower dentures. They do not stay in place so she does not wear them.) Neck Range of motion (ROM): Limited ROM (Slight decrease in extension) Focused Labs Anesthesia Preop lab: CBC WBC 8.2 K/mm3 (4.4-11.0) 04/26/24 09:09 04/26/24 RBC 3.53 M/mm3 (4.2-5.4) L 04/26/24 09:09 04/26/24 Hgb 10.4 g/dL (12.0-15.0) L 04/26/24 09:09 04/26/24 Hct 31.6 % (37-47) L 04/26/24 09:09 04/26/24 Plt Count 143 K/mm3 (150-450) L 04/26/24 09:09 04/26/24 CHEMISTRY Potassium 4.4 mmol/L (3.3-5.1) 04/26/24 09:09 04/26/24 Sodium 142 mmol/L (133-145) 04/26/24 09:09 04/26/24 Magnesium 2.0 mg/dL (1.6-2.6) 09/17/20 06:30 09/17/20 BUN 34 mg/dL (4-19) H 04/26/24 09:09 04/26/24 Creatinine 1.59 mg/dL (0.70-1.20) H 04/26/24 09:09 04/26/24 Glucose 138 mg/dL (70-99) H 04/26/24 09:09 04/26/24 POC Glucose 202 mg/dL (74-106) H 09/28/21 13:26 09/28/21 TSH 3.750 uIU/mL (0.300-4.200) 04/11/24 08:42 04/11/24 COAG PT 13.8 SECONDS (11.7-14.9) 04/26/24 09:09 04/26/24 Pre-Assessment Diagnosis/Proposed Procedure Planned Operative Procedure(s): (L) Carotidstent, in Mine Foreman with 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 When Was Last Pacemaker Check QUESTION #4 FULL TEXT: You/Your Family Experience fever (hyperthermia) with Anesthesia Last Oral Intake Last Oral intake: Last Oral Intake NPO since 20:00 05/28/24 06:05 Meds taken in AM with sips of Yes 05/28/24 06:05 water? Meds patient instructed to take am of surgery PONV PONV - copy and print associate: PONV - copy and print associate Female Yes 05/14/24 10:57 HX of Motion Sickness No 05/14/24 10:57 HX of N/V After Surgery No 05/14/24 10:57 Non-Smoker Yes 05/14/24 10:57 Duration of Surgery greater Yes 05/14/24 10:57 than 60 minutes Number of Risk Factors 3 05/14/24 10:57 PONV Score Moderate Risk 05/14/24 10:57 Height & Weight Height & Weight: Anesthesia: Height & Weight Height 5 ft 05/28/24 06:05 Weight: 91.5 kg 05/28/24 06:05 Body Mass Index (BMI) 39.4 05/28/24 06:05 Respiratory Assessment Respiratory Assessment - copy and print associate: Respiratory Tract Infection Hx - copy and print associate Hx Respiratory Tract Infection No 05/14/24 10:57 STOP Sleep Apnea STOP Sleep Apnea - copy and print associate: STOP Sleep Apnea - copy and print associate Hx Hypertension Yes 05/14/24 10:57 Hx Sleep Apnea No 05/14/24 10:57 CPAP No 05/14/24 10:57 BIPAP No 05/14/24 10:57 Do you snore loudly (louder No 05/14/24 10:57 than talking or can be heard Do you often feel tired/ No 05/14/24 10:57 fatigued/ sleepy during daytime? Has anyone observed you stop No 05/14/24 10:57 breathing during sleep? STOP Results Negative 05/14/24 10:57 QUESTION #5 FULL TEXT : Do you snore loudly (louder than talking or can be heard through closed doors)? 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 Specify any problems Hx of Preganancy in last 3 No 05/14/24 10:57 Months Nurse Filling Out Transfusion DSCHRIBER 05/14/24 10:57 & Questions: Date: 05/14/24 05/14/24 10:57 Time: 10:57 05/14/24 10:57 Patient unable to answer at this time (ie. confused, unrespo /Reproduction History /Reproductive History - copy and print associate: /Reproductive Hx- copy and print associate Hx Now Gestational Age (in weeks): EDC: Hx Hx Para Hx Section SAB Active Medications Active Medications: Current Medications Generic Name Dose Route Start Last Admin Trade Name Balta PRN Reason Stop Dose Admin Cefazolin Sodium 2 gm/ N/A 20 mls @ 400 mls/hr 05/28/24 07:00 IV 05/28/24 07:02 PREOP ONE Sodium Chloride 1,000 mls @ 15 mls/hr 05/28/24 05:50 05/28/24 06:23 IV 15 mls/hr .Q48H CHRIS Administration PFSH Medical History Wears glasses Thyroid disease Diabetes Arthritis Blackout Short of breath on exertion Chronic cough Leg cramps History of edema History of echocardiogram History of stress test Cardiology follow-up encounter Carotid artery stenosis Presence of stent in coronary artery (~09/15/20) Atherosclerotic heart disease of [place] coronary artery without angina pectoris CAD (coronary artery disease) Dyspnea Cardiomyopathy LBBB (left bundle branch block) Type 2 diabetes mellitus Hypothyroidism GERD (gastroesophageal reflux disease) Decreased cardiac ejection fraction Abnormal echocardiogram Abnormal stress test Pure hypercholesterolemia Essential hypertension Home Medications ?Medication ?Instructions ?Recorded ?Last Taken ?Type glimepiride 4 mg tablet 2 mg PO BID diabetes 07/31/20 05/27/24 History aspirin 81 mg chewable tablet 81 mg PO DAILY heart health 09/17/20 05/28/24 History levothyroxine 25 mcg tablet 50 mcg PO DAILY thyroid 02/21/23 05/28/24 History carvedilol 25 mg tablet 25 mg PO BID #180 TABLETS 06/12/23 05/28/24 Rx clopidogrel 75 mg tablet 75 mg PO DAILY #90 TABLETS 12/21/23 05/28/24 Rx furosemide 40 mg tablet 40 mg PO DAILY #90 TABLETS 12/21/23 05/27/24 Rx lisinopril 10 mg tablet 10 mg PO DAILY blood pressure 12/27/23 05/27/24 History rosuvastatin 20 mg tablet 20 mg PO DAILY 04/09/24 05/27/24 History Allergy/AdvReac Type Severity Reaction Status Date / Time pravastatin AdvReac myaligas Verified 05/28/24 06:04 Family History Mother CVA (cerebral vascular accident), Onset Age: 67 Brother Myocardial infarction, Onset Age: 50 Father Cancer, Onset Age: 57 Surgical History History of cardiac catheterization Presence of coronary angioplasty implant and graft (~09/15/20) S/P PTCA (percutaneous transluminal coronary angioplasty) H/O total hysterectomy with bilateral salpingo-oophorectomy (BSO) History of cholecystectomy History of repair of right rotator cuff Social History Smoking Status: Former smoker alcohol intake: current alcohol intake frequency: holidays/special occasions only substance use type: does not use caffeine: Yes Type: carbonated beverages Number of servings: 1 and coffee Number of servings: 4 Review of Systems (Anesthesia) ROS Narrative System reviewed and no additional complaints, except as documented.
[2024-05-28 06:51] LABS: Bedside Glucose 97 mg/dL (74-106)
--- NOTE | 2024-05-28 07:51 | PCM.HP.STD ---
HPI - General HPI Narrative KANA ORTIZ, is a 74 F who presents with asymptomatic left carotid stenosis found after bruit heard on exam. Her lesion is amenable to stenting so she presents now for elective TCAR. [facility] Medical History Wears glasses Thyroid disease Diabetes Arthritis Blackout Short of breath on exertion Chronic cough Leg cramps History of edema History of echocardiogram History of stress test Cardiology follow-up encounter Carotid artery stenosis Presence of stent in coronary artery (~09/15/20) Atherosclerotic heart disease of [place] coronary artery without angina pectoris CAD (coronary artery disease) Dyspnea Cardiomyopathy LBBB (left bundle branch block) Type 2 diabetes mellitus Hypothyroidism GERD (gastroesophageal reflux disease) Decreased cardiac ejection fraction Abnormal echocardiogram Abnormal stress test Pure hypercholesterolemia Essential hypertension Home Medications ?Medication ?Instructions ?Recorded ?Last Taken ?Type glimepiride 4 mg tablet 2 mg PO BID diabetes 07/31/20 05/27/24 History aspirin 81 mg chewable tablet 81 mg PO DAILY heart health 09/17/20 05/28/24 History levothyroxine 25 mcg tablet 50 mcg PO DAILY thyroid 02/21/23 05/28/24 History carvedilol 25 mg tablet 25 mg PO BID #180 TABLETS 06/12/23 05/28/24 Rx clopidogrel 75 mg tablet 75 mg PO DAILY #90 TABLETS 12/21/23 05/28/24 Rx furosemide 40 mg tablet 40 mg PO DAILY #90 TABLETS 12/21/23 05/27/24 Rx lisinopril 10 mg tablet 10 mg PO DAILY blood pressure 12/27/23 05/27/24 History rosuvastatin 20 mg tablet 20 mg PO DAILY 04/09/24 05/27/24 History Allergy/AdvReac Type Severity Reaction Status Date / Time pravastatin AdvReac myaligas Verified 05/28/24 06:04 Family History Mother CVA (cerebral vascular accident), Onset Age: 67 Brother Myocardial infarction, Onset Age: 50 Father Cancer, Onset Age: 57 Surgical History History of cardiac catheterization Presence of coronary angioplasty implant and graft (~09/15/20) S/P PTCA (percutaneous transluminal coronary angioplasty) H/O total hysterectomy with bilateral salpingo-oophorectomy (BSO) History of cholecystectomy History of repair of right rotator cuff Social History Smoking Status: Former smoker alcohol intake: current alcohol intake frequency: holidays/special occasions only substance use type: does not use caffeine: Yes Type: carbonated beverages Number of servings: 1 and coffee Number of servings: 4 ROS Constitutional Constitutional: Denies chills, fever(s), frequent falls, lethargy or weakness Eyes Eyes: Denies blind spots, change in vision or loss of vision ENT HEENT: Denies bleeding gums, hoarseness or sore throat Cardiovascular Cardiovascular: Denies abdominal pain, bluish discoloration of hand/feet, chest pain with activity, claudication, cold extremities, cyanosis, dyspnea on exertion, erythema on extremities, irregular heart rhythm, leg edema, leg ulcers, numbness in extremities or weakness in extremities Respiratory/Chest Respiratory/Chest: Denies cough, excessive phlegm production, shortness of breath at rest, shortness of breath with exertion or wheezing Gastrointestinal Gastrointestinal: Denies anorexia, change in stool character, constipation, diarrhea, melena or rectal bleeding Genitourinary Genitourinary: Denies dysuria or hematuria Musculoskeletal Musculoskeletal: Denies abnormal gait Integumentary Integumentary: Reports other Details: ; Denies erythema, non-healing lesions or wounds Neurologic Neurologic: Denies abnormal speech, focal weakness, headache(s), loss of vision, numbness, paresthesias or sensory deficit Hematologic/Lymphatic Hematologic/Lymphatic: Denies easy bleeding, easy bruising or lymphadenopathy Vital Signs Vital Signs Vital Signs: 05/28/24 06:05 05/28/24 06:05 05/28/24 06:46 Temperature 97.0 F L 97.0 F L Temperature Source Temporal Pulse Rate 59 L 59 L Respiratory Rate 20 H 20 H Respiratory Pattern Normal Blood Pressure 147/56 H 147/56 H Blood Pressure Mean 86 Blood Pressure Source Monitor Blood Pressure Position Semi-Fowlers Blood Pressure Location Right Arm Pulse Ox 97 97 Oxygen Delivery Method Room Air Room Air Weight Weight: 201 lb 11.567 oz Body Mass Index (BMI) 39.4 Physical Exam Const alert, oriented x3, no apparent distress and healthy appearing General Appearance: cooperative; Negative for combative or lethargic Orientation / Consciousness: awake Exam Limitations: no limitations HEENT Head and Scalp: normocephalic and atraumatic Eyes EOMs intact bilaterally General Eye: normal appearance of both eyes Neck full ROM, no lymphadenopathy, thyroid normal and No no carotid bruits General: trachea midline; Negative for lymphadenopathy or tenderness Thyroid: thyroid normal Lymph Lymphatic: Negative for no lymphadenopathy noted Resp normal respiratory effort, no use of accessory muscles and clear to auscultation bilaterally Effort and Inspection: Negative for labored, stridor or audible wheezes Cardio regular rate, regular rhythm and no murmurs Peripheral Pulses: brachial pulses present, radial pulses present, femoral pulses present, popliteal pulses present, posterior tibial pulses present and dorsalis pedis pulses present GI non-tender and non-distended; Negative for hepatosplenomegaly Back/Spine Cervical Spine: cervical ROM normal Extremity full ROM, normal capillary refill and no clubbing, cyanosis or edema Skin no rashes or lesions noted and no wounds Neuro oriented x3, CN's II-XII intact bilaterally, no focal motor deficits and no sensory deficits noted Psych thought process normal, cooperative, affect normal, speech normal and activity/motor behavior normal Results Lab / Micro Data Labs: Laboratory Results - last 24 hr 05/28/24 06:02: POC Glucose 97 Assessment & Plan Assessment/Plan (1) Carotid artery stenosis: QUALIFIERS: Laterality: left Qualified Code(s): I65.22 - Occlusion and stenosis of left carotid artery PLAN: -left TCAR
--- NOTE | 2024-05-28 10:20 | PCM.OPRPT ---
Operative Report (Standard) Operative Information Date of Procedure: 05/28/24 Pre-Operative Diagnosis: left carotid stenosis Post-Operative Diagnosis: same Surgery/Procedure Performed: left carotid stent, trans carotid credit professional: Yes Automotive Repair Technician: Oumar Beal Tasks completed by lead dental assistant: Opening, Closing, Opening & closing and Hemostasis: Electrocautery Type of Anesthesia: General RN Documented Start/Stop Times: Operation Date: 05/28/24 07:30 Case Time Into Pre-Op 05/28/24 05:45 Out of Pre-Op 05/28/24 07:46 Into Recovery 05/28/24 10:34 Out of Recovery 05/28/24 11:35 Procedure Start Time: 08:50 Procedure Stop Time: 10:20 Select all DRAINS/GRAFTS/IMPLANTS that apply: Implanted device Implanted device details: En route [id number] Estimated Blood Loss: 13 Specimen collected: No Description of surgery: HPI: Patient is a 72-year-old female with asymptomatic left carotid artery stenosis. She is felt to be appropriate candidate for stenting so she presents now for left TCAR. Description of procedure: Upon obtaining form consent and verification correct patient procedure site patient taken to the Welfare Eligibility Worker where she was placed under general anesthesia. She was then positioned prepped and draped in usual sterile fashion time was performed. Transverse incision was made 1 fingerbreadth above the left clavicle and Bovie electrocautery used to dissect down through the subcutaneous tissue to the level the platysma. The platysma was divided and self-retaining retractors put in position after which dissection was then carried down to the sternocleidomastoid which was split between the sternal and clavicular heads and self-retaining retractors moved deeper into the wound. Once the carotid sheath was identified sharp dissection was used to dissect free the internal jugular vein and sidebranches ligated with silk ties and divided. The vein was then retracted laterally exposing the common carotid artery. This was then dissected free proximal and distal right angle was placed vessel loop. A 5-0 Prolene pursestring suture was then placed at the intended access site and the patient was then heparinized allowed to circulate for 3 minutes. ACT was obtained which confirmed satisfactory degree of anticoagulation and we then turned our attention to the venous return access. Under ultrasound guidance the right common femoral vein was accessed with a micropuncture needle and wire. This was exchanged for micropuncture sheath through which a J-wire was advanced and the micropuncture sheath exchanged for the 8 Turkish venous return sheath. Next using micropuncture needle wire we accessed the common carotid artery in antegrade fashion and the needle was then exchanged for micropuncture sheath. Through this hand-injection subtraction angiography of the carotid was performed revealing satisfactory positioning no extravasation or dissection. This also revealed the carotid bifurcation and the plan was to engage to the external carotid artery with a wire in order to upsized our sheath. The microwire and dilator then readvanced and navigated into the external carotid artery. The wire and dilator were then withdrawn and a J-wire advanced through the sheath which was then exchanged for the silk Road flow reversal sheath. This was then secured in position with silk suture and the flow reversal tubing attached and opened. Adequate flow reversal was then confirmed and subtraction angiography images performed which revealed satisfactory sheath tip positioning. The common carotid artery was then occluded with Vesseloops and further oblique images obtained. Using an 014 wire we were able to navigate into the internal carotid artery traversing lesion within true lumen. A 5 mm x 25 angioplasty balloon was then advanced in the position and inflated to nominal for 15 seconds centered on the lesion. The balloon was then withdrawn and a tapered 9 to 7 x 30 en route stent was advanced and deployed centered at the lesion. Flow reversal was then allowed for 3 minutes after which completion angiography was performed revealing satisfactory lesion response with no extravasation or dissection, no residual stenosis, and no plaque prolapse. The vessel loop was then released and additional flow reversal time performed. The flow reversal tubing was then detached from the arterial sheath and blood return via the venous sheath. The femoral vein sheath then withdrawn followed by 10 minutes of manual pressure with satisfactory stasis noted. The pursestring in the common carotid artery was then secured as the sheath was withdrawn with satisfactory stasis obtained. Heparin was then reversed with protamine and the incision inspected for hemostasis. Suzie topical hemostatic was applied and a 19 Turkish channel SHANEKA placed via stab with stab incision. The incision was then closed with 3-0 Vicryl, 4 Monocryl and Dermabond for the skin. The patient was then awake from anesthesia taken to the recovery room with anticipated admission to the intensive care unit for hemodynamic and neurologic monitoring. Surgical Findings: See above Complications Complications: No
--- NOTE | 2024-05-28 11:12 | PCM.POST.ANE ---
Anesthesia: Postop Eval I Current Vital Signs Temperature: 97.4 F Pulse Rate: 67 Blood Pressure: 152/66 Respiratory Rate: 14 Pulse Ox: 98 Oxygen Delivery Method: Simple Mask Oxygen Flow Rate (L/min): 6 Assessment Airway patent: Yes Spontaneous unlabored respirations: Yes Mental status: Awake nausea: No Vomiting: No Anesthesia Complication: No Fluid Hydration Crystalloid volume administer (ml): 1,150 Total IV fluid infused: 1,150 Progress Note Anesthesia document: Postop Eval 1 completed: Yes
[2024-05-28] MEDS: oxyCODONE 5 MG Tablet PO (12:55)
[2024-05-28] MEDS: Acetaminophen 500 MG Tablet 1000 MG PO ×2 (12:56→21:57)
[2024-05-28] MEDS: Cefazolin 1 GM/50 ML BAG IV ×2 (13:46→21:57)
[2024-05-28] MEDS: hydrALAZINE 20 MG/ML Vial 10 MG IV (13:49)
[2024-05-28 13:59] LABS: ACT Activated Clotting Time 285 sec (74-137)
[2024-05-28 13:59] LABS: ACT Activated Clotting Time 251 sec (74-137)
--- NOTE | 2024-05-28 16:19 | POSTOPAN2_ITS ---
Anesthesia Postop Eval I Sum Postop Eval Completion status Anesthesia document: Postop Eval 1 completed: Yes Anesthesia Postop Eval I Summary Anesthesia Postop Eval I Summary: Anesthesia Postop Eval I: Assessment Summary Airway patent Yes 05/28/24 11:13 [email or web address] Spontaneous unlabored Yes 05/28/24 11:13 DIRECTOR [email or web address] respirations Mental status Awake 05/28/24 11:13 [email or web address] nausea No 05/28/24 11:13 DIRECTOR [email or web address] Vomiting No 05/28/24 11:13 DIRECTOR [email or web address] Anesthesia Postop Eval I: Fluid Summary Crystalloid volume administer 1,150 05/28/24 11:13 DIRECTOR [email or web address] (ml) Colloids volume administered ( ml) Blood Product volume administered (ml) Total IV fluid infused 1,150 05/28/24 11:13 DIRECTOR [email or web address] Anesthesia Postop Eval I: Summary Notes Anesthesia Complication No 05/28/24 11:13 DIRECTOR [email or web address] Anesthesia Complication Comment: Post-operative progress note Anesthesia: Postop Eval II Evaluation Mental status: Awake and Calm Pain Level: 1 nausea: No Vomiting: No Complications Anesthesia Complication: No
--- NOTE | 2024-05-28 16:19 | PCM.POSTANE2 ---
Anesthesia Postop Eval I Sum Postop Eval Completion status Anesthesia document: Postop Eval 1 completed: Yes Anesthesia Postop Eval I Summary Anesthesia Postop Eval I Summary: Anesthesia Postop Eval I: Assessment Summary Airway patent Yes 05/28/24 11:13 [email or web address] [email or web address] Spontaneous unlabored Yes 05/28/24 11:13 [email or web address] [email or web address] respirations Mental status Awake 05/28/24 11:13 [email or web address] nausea No 05/28/24 11:13 [email or web address] Vomiting No 05/28/24 11:13 [email or web address] [email or web address] Anesthesia Postop Eval I: Fluid Summary Crystalloid volume administer 1,150 05/28/24 11:13 [email or web address] [email or web address] (ml) Colloids volume administered ( ml) Blood Product volume administered (ml) Total IV fluid infused 1,150 05/28/24 11:13 [email or web address] Anesthesia Postop Eval I: Summary Notes Anesthesia Complication No 05/28/24 11:13 [email or web address] Anesthesia Complication Comment: Post-operative progress note Anesthesia: Postop Eval II Evaluation Mental status: Awake and Calm Pain Level: 1 nausea: No Vomiting: No Complications Anesthesia Complication: No
[2024-05-28] MEDS: Carvedilol 25 MG Tablet PO (18:16)
[2024-05-28] MEDS: Atorvastatin Calcium 40 MG Tablet PO (21:58)
[2024-05-28] MEDS: 0.9% Saline Lock 10 ML Syringe IV (22:03)
[2024-05-29] VITALS (20 sets, daily range): BP systolic 84–133; BP diastolic 40–81; PULSE 54–65; RESP 15–22; TEMP 36.6–36.8; O2SAT 92–100; BMI 41.5; BMI 40.5
[2024-05-29 03:55] LABS: Absolute Lymphocyte Count 0.61 X10^3/uL (0.83-4.51); Absolute Neutrophil Count 9.9 X10^3/uL (2.0-7.7); Basophil# 0.04 X10^3/uL; Basophil% 0.3 % (0-1); Eosinophils% 1.7 % (0-5); Hematocrit 27.5 % (37-47); Hemoglobin 9.1 g/dL (12.0-15.0); Lymphocyte # 0.61 X10^3/ul (0.83-4.51); Lymphocyte % 5.3 % (19-41); Mean Corp Hgb Conc 33.1 g/dL (32-36); Mean Corpuscular Hgb 29.7 pg (27.0-32.0); Mean Corpuscular Volume 89.9 fL (81-99); Mean Platelet Vol. 11.9 fl (6.2-12.0); Monocyte# 0.61 X10^3/uL; Monocyte% 5.3 % (0-10); NRBC Flagged by Analyzer 0 % (0-5); Neutrophil # 9.92 X10^3/uL (2.7-7.7); Neutrophil % 86.8 % (47-70); Platelet Count 131 K/mm3 (150-450); RBC Distribution Width CV 15.4 % (11.6-14.6); RBC Distribution Width SD 50.3 fl (35.1-43.9); Red Blood Count 3.06 M/mm3 (4.2-5.4); White Blood Count 11.5 K/mm3 (4.4-11.0)
[2024-05-29] MEDS: Acetaminophen 500 MG Tablet 1000 MG PO (05:46)
[2024-05-29] MEDS: 0.9% Normal Saline (500mL Bag) 500 ML 999 ML IV (05:47)
--- NOTE | 2024-05-29 07:35 | PN.SURG_ITS ---
Subjective Subjective I saw Michell this morning, she was resting in bed and eating breakfast (liquids) which she had so far tolerated well. She reports feeling groggy having just woken up but otherwise no complaints. She had some low blood pressures this morning which responded well to a 500 cc NS bolus. She may have voided over night but if so very little; bladder scan early this morning showed <300. She denies pain at the incision site or groin puncture site. Objective Data Objective Data Vital Signs: Vital Signs Temp Pulse Resp BP Pulse Ox O2 Del Method O2 Flow Rate 98.2 F 59 L 17 110/47 L 99 Nasal Cannula 2 05/29/24 06:00 05/29/24 07:00 05/29/24 07:00 05/29/24 07:00 05/29/24 07:00 05/29/24 07:00 05/29/24 07:00 Oxygen Flow Rate (L/min) 2 Oxygen Delivery Method Nasal Cannula Weight: 206 lb 9.17 oz Body Mass Index (BMI) 40.5 Intake & Output: Intake and Output for Last 24 Hours 05/27/24 05/28/24 05/29/24 23:59 23:59 23:59 Intake Total 427.75 / 427.75 1400 / 1400 Output Total 0 / 0 18 / 18 Balance 427.75 / 427.75 1382 / 1382 Lab / Micro Data 05/29/24 03:49 Labs: Laboratory Results - last 24 hr 05/28/24 08:10: Activated Clotting Time 285 H 05/28/24 08:45: Activated Clotting Time 251 H 05/29/24 03:49: WBC 11.5 H, RBC 3.06 L, Hgb 9.1 L, Hct 27.5 L, MCV 89.9, MCH 29.7, MCHC 33.1, RDW Std Deviation 50.3 H, RDW Coeff of Diana 15.4 H, Plt Count 131 L, MPV 11.9, Immature Gran % (Auto) 0.600, Neut % (Auto) 86.8 H, Lymph % (Auto) 5.3 L, [place] % (Auto) 5.3, Eos % (Auto) 1.7, Baso % (Auto) 0.3, Absolute Neuts (auto) 9.9 H, Absolute Lymphs (auto) 0.61 L, Nucleated RBC % 0 Physical Exam Const alert, oriented x3 and no apparent distress General Appearance: cooperative and comfortable HEENT normocephalic, head/scalp atraumatic, hearing grossly normal bilaterally, external ears normal and external nose normal Eyes General Eye: normal appearance of both eyes Neck Neck Narrative: L neck incision site with dermabond intact; no dehiscence, erythema, focal edema, ecchymosis; site soft to palpation SHANEKA drain with serosanguineous output Resp normal respiratory effort, no retractions and no use of accessory muscles Effort and Inspection: able to speak in complete sentences Cardio regular rate and regular rhythm Extremity normal to inspection Neuro oriented x3, CN's II-XII intact bilaterally, moves all extremities, no focal motor deficits and no sensory deficits noted Speech: speech normal Psych mental status grossly normal Appearance: grossly normal Attitude: calm and engaged Activity / Motor Behavior: appropriate eye contact Speech: normal speech Assessment & Plan Assessment/Plan (1) Carotid artery stenosis: QUALIFIERS: Laterality: left Qualified Code(s): I65.22 - Occlusion and stenosis of left carotid artery PLAN: She is POD#1 from L TCAR. L neck incision site satisfactory in appearance without evidence of hematoma. SHANEKA drain was removed without issue and she tolerated this well. Morning antihypertensives are held. BP responded well to fluid bolus. Will continue to monitor through the morning. Encouraged fluids. OK for normal diet. Discontinue arterial line. Plan to get up to the chair and ambulate with nursing later this morning. Anticipate discharge early afternoon. Charges/Coding Procedures Integumentary [id number]: [id number] Global Visit
[2024-05-29] MEDS: Levothyroxine 50 MCG Tablet PO (08:14)
[2024-05-29] MEDS: Aspirin 81 MG TAB.CHEW PO (08:14)
[2024-05-29] MEDS: Enoxaparin 40 MG/0.4 ML Syringe SC (08:15)
[2024-05-29] MEDS: Clopidogrel Bisulfate 75 MG Tablet PO (08:15)
[2024-05-29 09:57] LABS: Bedside Glucose 84 mg/dL (74-106)
--- NOTE | 2024-05-29 12:35 | CASEMGMT ---
Addendum entered by Parag Traylor 05/29/24 14:22: Strata: 2 Original Note: RN CM CASING IN LINE FEEDER CM to room to meet with patient for initial transition planning/care coordination assessment. BISHOP ALEGRE introduced self and role at [facility]. Pt voices understanding and consents to assessment at this time. Pt sitting up in chair in room in no distress at this time. Sister and brother in room visiting and pt agreeable to them being present during assessment. Pt is A/O at this time and answers all questions appropriately. Care providers, pharmacy, and demographics verified/updated at this time. PCP: Dr Minaya Specialists: Dr Garcia-cardiology, Dr Curtis-vascular Preferred Pharmacy: [facility] Retail Insurance: [facility] Prescription Benefit: Yes LNOK: Sister, Annetta. Brother, Bharath. , Nestor. Nestor is not listed on demographics as a contact. Pt states he does not hear well on the phone and does not want his phone # listed. Living Arrangements: Lives w/her , adult son, and son's girlfriend in one-story home w/basement. Pt reports being independent w/ADL's and IADL's. Transportation: Pt states drives self and states no transportation concerns at this time. also drives. DME: Pt denies using any DME and denies needs. HHC/SNF: No history of either. No needs identified for HHC. Pt wishes to return home and states has no concerns with going home at time of discharge. PLAN: Home w/family support and discharge plans in place. Milli WREN RN, CM
--- NOTE | 2024-05-29 13:01 | DS.PCM_ITS ---
Providers Date of Admission: 05/28/24 Primary Care Physician: Dr. Marisela Minaya, DO Reason For Visit: Carotidstent, in [facility] with Anes, [employer], OR Staf Diagnosis Discharge Diagnosis (1) Carotid artery stenosis: Status: Chronic Code(s): I65.29 - Occlusion and stenosis of unspecified carotid artery Qualifiers: Laterality: left Qualified Code(s): I65.22 - Occlusion and stenosis of left carotid artery Plan: She is POD#1 from L TCAR. L neck incision site satisfactory in appearance without evidence of hematoma. SHANEKA drain was removed without issue and she tolerated this well. Morning antihypertensives are held. BP responded well to fluid bolus. Will continue to monitor through the morning. Encouraged fluids. OK for normal diet. Discontinue arterial line. Plan to get up to the chair and ambulate with nursing later this morning. Anticipate discharge early afternoon. Medications at Discharge Home Medications glimepiride 4 mg tablet 2 mg PO BID diabetes 07/31/20 aspirin 81 mg chewable tablet 81 mg PO DAILY heart health 09/17/20 levothyroxine 25 mcg tablet 50 mcg PO DAILY thyroid 02/21/23 carvedilol 25 mg tablet 25 mg PO BID #180 TABLETS 06/12/23 Held on 05/29/24. Instructions: Resume on 05/31/24. Hold until systolic BP (top number) >140 clopidogrel 75 mg tablet 75 mg PO DAILY #90 TABLETS 12/21/23 furosemide 40 mg tablet 40 mg PO DAILY #90 TABLETS 12/21/23 lisinopril 10 mg tablet 10 mg PO DAILY blood pressure 12/27/23 Held on 05/29/24. Instructions: Resume on 06/01/24. Hold until systolic BP (top number) is >140 rosuvastatin 20 mg tablet 20 mg PO DAILY 04/09/24 acetaminophen 500 mg tablet 1,000 mg (2 x 500 mg) PO Q8 #0 tabs 05/29/24 Hospital Course Summary of Care Provided Hospital Course: Michell Hathaway is a 74 y/o female who underwent L TCAR on 05/28/2024. The procedure was without complication and she tolerated it well. Postoperatively, she was routinely admitted to the ICU for ongoing hemodynamic and neurologic monitoring. She has remained neurologically stable and intact throughout her admission. Overnight and early this morning she had some lower blood pressures; she also had minimal urine output and very little residual on her bladder scan. She received a 500 cc normal saline bolus and increased fluid intake was encouraged. Her blood pressure responded very well to this and she has been normotensive since with her home antihypertensive regimen held. SHANEKA drain was removed without issue this morning. The incision site is satisfactory in appearance without evidence of hematoma. Right groin puncture site also satisfactory in appearance without any hematoma or ecchymosis. She has tolerated a normal diet, voiding without difficulty, ambulated without difficulty. She is medically stable for discharge home and she feels comfortable and ready for this. She will be discharged home with her usual antihypertensive regimen held and she is instructed to check her blood pressure twice daily and restart her blood pressure medications if her systolic blood pressure is greater than 140. She will continue aspirin and Plavix daily. She has scheduled outpatient follow- up in the office in 2 weeks. Physical Exam Const alert, oriented x3 and no apparent distress General Appearance: cooperative and comfortable HEENT normocephalic, head/scalp atraumatic, hearing grossly normal bilaterally, external ears normal and external nose normal Eyes General Eye: normal appearance of both eyes Neck Neck Narrative: L neck incision site with dermabond intact; no dehiscence, erythema, focal edema, ecchymosis; site soft to palpation SHANEKA drain with serosanguineous output Resp normal respiratory effort, no retractions and no use of accessory muscles Effort and Inspection: able to speak in complete sentences Cardio regular rate and regular rhythm Extremity normal to inspection Neuro oriented x3, CN's II-XII intact bilaterally, moves all extremities, no focal motor deficits and no sensory deficits noted Speech: speech normal Psych mental status grossly normal Appearance: grossly normal Attitude: calm and engaged Activity / Motor Behavior: appropriate eye contact Speech: normal speech Weight / BMI Weight Weight: 206 lb 9.17 oz Body Mass Index (BMI) 40.5 ABG / Lab / Microbiology Data 05/29/24 03:49 Laboratory: Laboratory Results - last 24 hr 05/28/24 08:10: Activated Clotting Time 285 H 05/28/24 08:45: Activated Clotting Time 251 H 05/29/24 03:49: WBC 11.5 H, RBC 3.06 L, Hgb 9.1 L, Hct 27.5 L, MCV 89.9, MCH 29.7, MCHC 33.1, RDW Std Deviation 50.3 H, RDW Coeff of Diana 15.4 H, Plt Count 131 L, MPV 11.9, Immature Gran % (Auto) 0.600, Neut % (Auto) 86.8 H, Lymph % (Auto) 5.3 L, [place] % (Auto) 5.3, Eos % (Auto) 1.7, Baso % (Auto) 0.3, Absolute Neuts (auto) 9.9 H, Absolute Lymphs (auto) 0.61 L, Nucleated RBC % 0 05/29/24 08:12: POC Glucose 84 D/C Instructions Discharge Diet: No restrictions May shower in (days): 1 Weight Bearing Status: Weight bearing as tolerated Lifting Restricted to (Lbs): 20 Lifting Restrictions: Do not lift greater than 20 pounds for 3 weeks Call your doctor if your incision/area has: Sudden Increased Bleeding, Increased Pain/ Swelling and Foul Smelling Discharge Call your doctor if you observe: Fever of 101 or Higher and Uncontrolled pain Remove Dressing in: 1 day (L neck and R groin) DC O2, CPAP, BIPAP Needs Home O2 Discharge instructions: No Additional Instructions: INCISION CARE: * You have a small bandage on your neck over the site from which the surgical drain was removed. You may remove this bandage tomorrow. As long as there is no residual drainage, you may leave this open to air. If you do notice some continued drainage, you may re-cover with a Band-Aid. * You also have a small bandage in your R groin over the puncture site there. You may also remove this bandage tomorrow. As long as there is no residual drainage, you may leave this open to air. If you do notice some continued drainage, you may re-cover with a Band-Aid and change this daily. * Your neck incision site is covered with skin glue which will continue to protect it. The skin glue will peel/flake off on its own over the next few weeks. Please do not pick at it. * You may shower tomorrow. It is okay for soap and water to rinse over the incision site, pat to dry. * Do not submerge the incision site in water such as to take a bath or go swimming etc. for 3 weeks. MEDICATION INSTRUCTIONS * Continue to take Aspirin 81mg daily and Clopidogrel (Plavix) 75mg daily. * Hold Carvedilol (coreg) 25mg tablet twice daily and lisinopril 10mg tablet once daily for now. Your blood pressure have been a bit lower than usual following surgery. Please check your blood pressure every morning and every evening or any time you feel dizzy/lightheaded or have other symptoms. When your systolic blood pressure (top number) is 140 mmHg then restart your Carvedilol (Coreg) 25mg tablet twice daily first. Then continue to check your blood pressure daily and if it is again >140 on the top, restart your lisinopril. ACTIVITY INSTRUCTIONS * Do not lift greater than 20 pounds for 3 weeks. Otherwise, please continue with activity as tolerated. * Do not drive until you can turn your head well enough to safely check your blind spots. FOLLOW-UP You are scheduled for follow-up in the office on 06/12/2024. If you need to change this appointment or have any other questions/concerns, please call the office at [phone]. Please Follow Up With: Lucy Tracey PA When: 06/12/24 Meaningful Use Info Meaningful Use Meaningful Use Diagnoses (Choose all that apply): None applicable Ischemic Stroke Statin Dosing Therapy Reference: STATIN DOSE THERAPY REFERENCE: * Patients > 75 years receive moderate or high dose statin therapy. * Patients 75 years or YOUNGER should receive HIGH intensity statin dose unless contraindicated. You will be required to document reason for non-treatment if statin daily dose does not meet guidelines. HIGH DOSE STATIN THERAPY DAILY Atorvastatin > than or = to 40 mg Rosuvastatin > than or = to 20 mg Amlodipine + Atorvastatin > than or = to 2.5/40 mg Ezetimibe + Simvastatin 10/80 mg Simvastatin 80mg Discharge Plan Admission Admit Date/Time: 05/28/24 10:07 Primary Reason for Your Visit: L TCAR Attending Provider: Munir Curtis Primary Care Provider: Marisela Minaya Instructions Additional Instructions / Restrictions: INCISION CARE: * You have a small bandage on your neck over the site from which the surgical drain was removed. You may remove this bandage tomorrow. As long as there is no residual drainage, you may leave this open to air. If you do notice some continued drainage, you may re-cover with a Band-Aid. * You also have a small bandage in your R groin over the puncture site there. You may also remove this bandage tomorrow. As long as there is no residual drainage, you may leave this open to air. If you do notice some continued drainage, you may re-cover with a Band-Aid and change this daily. * Your neck incision site is covered with skin glue which will continue to protect it. The skin glue will peel/flake off on its own over the next few weeks. Please do not pick at it. * You may shower tomorrow. It is okay for soap and water to rinse over the incision site, pat to dry. * Do not submerge the incision site in water such as to take a bath or go swimming etc. for 3 weeks. MEDICATION INSTRUCTIONS * Continue to take Aspirin 81mg daily and Clopidogrel (Plavix) 75mg daily. * Hold Carvedilol (coreg) 25mg tablet twice daily and lisinopril 10mg tablet once daily for now. Your blood pressure have been a bit lower than usual following surgery. Please check your blood pressure every morning and every evening or any time you feel dizzy/lightheaded or have other symptoms. When your systolic blood pressure (top number) is 140 mmHg then restart your Carvedilol (Coreg) 25mg tablet twice daily first. Then continue to check your blood pressure daily and if it is again >140 on the top, restart your lisinopril. ACTIVITY INSTRUCTIONS * Do not lift greater than 20 pounds for 3 weeks. Otherwise, please continue with activity as tolerated. * Do not drive until you can turn your head well enough to safely check your blind spots. FOLLOW-UP You are scheduled for follow-up in the office on 06/12/2024. If you need to change this appointment or have any other questions/concerns, please call the office at [phone]. Discharge Orders/Prescriptions Prescriptions: New acetaminophen 500 mg Tablet 1,000 mg PO Q8 Qty: 0 0RF Continued glimepiride 4 mg tablet 2 mg PO BID levothyroxine 25 mcg tablet 50 mcg PO DAILY aspirin 81 mg tablet,chewable 81 mg PO DAILY rosuvastatin 20 mg tablet 20 mg PO DAILY clopidogrel 75 mg tablet 75 mg PO DAILY Qty: 90 3RF furosemide 40 mg tablet 40 mg PO DAILY Qty: 90 3RF Held lisinopril 10 mg tablet 10 mg PO DAILY Hold Instructions: Resume on 06/01/24. Hold until systolic BP (top number) is >140 carvedilol 25 mg tablet 25 mg PO BID Qty: 180 3RF Hold Instructions: Resume on 05/31/24. Hold until systolic BP (top number) >140 Referrals / Follow Up: Marisela Minaya DO [Primary Care Provider] - Disposition Disposition (needs filled in before D/C Order can be placed): Home, Self Care
--- NOTE | 2024-05-29 13:14 | DCINST_ITS ---
Discharge Instructions Diet Discharge Diet: No restrictions DC O2, CPAP, BIPAP needs Home O2 Discharge instructions: No Dressing / Incision May shower in (days): 1 Weight Bearing Status: Weight bearing as tolerated Dressing / Incision Call your doctor if your incision/area has: Sudden Increased Bleeding, Increased Pain/ Swelling and Foul Smelling Discharge Call your doctor if you observe: Fever of 101 or Higher and Uncontrolled pain Additional Dressing/Incision Instructions:: INCISION CARE: ? You have a small bandage on your neck over the site from which the surgical drain was removed. You may remove this bandage tomorrow. As long as there is no residual drainage, you may leave this open to air. If you do notice some continued drainage, you may re-cover with a Band-Aid. ? You also have a small bandage in your R groin over the puncture site there. You may also remove this bandage tomorrow. As long as there is no residual drainage, you may leave this open to air. If you do notice some continued drainage, you may re-cover with a Band-Aid and change this daily. ? Your neck incision site is covered with skin glue which will continue to protect it. The skin glue will peel/flake off on its own over the next few weeks. Please do not pick at it. ? You may shower tomorrow. It is okay for soap and water to rinse over the incision site, pat to dry. ? Do not submerge the incision site in water such as to take a bath or go swimming etc. for 3 weeks. MEDICATION INSTRUCTIONS ? Continue to take Aspirin 81mg daily and Clopidogrel (Plavix) 75mg daily. ? Hold Carvedilol (coreg) 25mg tablet twice daily and lisinopril 10mg tablet once daily for now. Your blood pressure have been a bit lower than usual following surgery. Please check your blood pressure every morning and every evening or any time you feel dizzy/lightheaded or have other symptoms. When your systolic blood pressure (top number) is 140 mmHg then restart your Carvedilol (Coreg) 25mg tablet twice daily first. Then continue to check your blood pressure daily and if it is again >140 on the top, restart your lisinopril. ACTIVITY INSTRUCTIONS ? Do not lift greater than 20 pounds for 3 weeks. Otherwise, please continue with activity as tolerated. ? Do not drive until you can turn your head well enough to safely check your blind spots. FOLLOW-UP You are scheduled for follow-up in the office on 06/12/2024. If you need to change this appointment or have any other questions/concerns, please call the office at [phone]. Follow Up Care Please Follow Up With: Lucy Tracey PA Test Results: Test results from this visit will be discussed in further detail at your follow- up appointment, if applicable. Discharge Plan Admission Admit Date/Time: 05/28/24 10:07 Primary Reason for Your Visit: L TCAR Attending Provider: Munir Curtis Primary Care Provider: Marisela Minaya Instructions Additional Instructions / Restrictions: INCISION CARE: * You have a small bandage on your neck over the site from which the surgical drain was removed. You may remove this bandage tomorrow. As long as there is no residual drainage, you may leave this open to air. If you do notice some continued drainage, you may re-cover with a Band-Aid. * You also have a small bandage in your R groin over the puncture site there. You may also remove this bandage tomorrow. As long as there is no residual drainage, you may leave this open to air. If you do notice some continued drainage, you may re-cover with a Band-Aid and change this daily. * Your neck incision site is covered with skin glue which will continue to protect it. The skin glue will peel/flake off on its own over the next few weeks. Please do not pick at it. * You may shower tomorrow. It is okay for soap and water to rinse over the incision site, pat to dry. * Do not submerge the incision site in water such as to take a bath or go swimming etc. for 3 weeks. MEDICATION INSTRUCTIONS * Continue to take Aspirin 81mg daily and Clopidogrel (Plavix) 75mg daily. * Hold Carvedilol (coreg) 25mg tablet twice daily and lisinopril 10mg tablet once daily for now. Your blood pressure have been a bit lower than usual following surgery. Please check your blood pressure every morning and every evening or any time you feel dizzy/lightheaded or have other symptoms. When your systolic blood pressure (top number) is 140 mmHg then restart your Carvedilol (Coreg) 25mg tablet twice daily first. Then continue to check your blood pressure daily and if it is again >140 on the top, restart your lisinopril. ACTIVITY INSTRUCTIONS * Do not lift greater than 20 pounds for 3 weeks. Otherwise, please continue with activity as tolerated. * Do not drive until you can turn your head well enough to safely check your blind spots. FOLLOW-UP You are scheduled for follow-up in the office on 06/12/2024. If you need to change this appointment or have any other questions/concerns, please call the office at [phone]. Discharge Orders/Prescriptions Prescriptions: New acetaminophen 500 mg Tablet 1,000 mg PO Q8 Qty: 0 0RF Continued glimepiride 4 mg tablet 2 mg PO BID levothyroxine 25 mcg tablet 50 mcg PO DAILY aspirin 81 mg tablet,chewable 81 mg PO DAILY rosuvastatin 20 mg tablet 20 mg PO DAILY clopidogrel 75 mg tablet 75 mg PO DAILY Qty: 90 3RF furosemide 40 mg tablet 40 mg PO DAILY Qty: 90 3RF Held lisinopril 10 mg tablet 10 mg PO DAILY Hold Instructions: Resume on 06/01/24. Hold until systolic BP (top number) is >140 carvedilol 25 mg tablet 25 mg PO BID Qty: 180 3RF Hold Instructions: Resume on 05/31/24. Hold until systolic BP (top number) >140 Referrals / Follow Up: Marisela Minaya DO [Primary Care Provider] - Disposition Disposition (needs filled in before D/C Order can be placed): Home, Self Care
== END 2024-05-29 13:45 | disposition home or self-care (01) | DRG 36 ==
LOC: ICU 10:45 → SDC 14:42 → ICU 14:42
PROVIDERS: Admitting Provider Surgery Trauma Surgery; PCP Internal Medicine; Referring Provider Surgery Trauma Surgery; Visit Provider Surgery Trauma Surgery
PROC: 037L34Z Dilation of Left Internal Carotid Artery with Drug-eluting Intraluminal Device, Percutaneous Approach (ICD-10-PCS; CPT 37236; principal; 2024-05-28 07:00)
DX: I65.22 Occlusion and stenosis of left carotid artery (principal); E11.59 Type 2 diabetes mellitus with other circulatory complications; I10 Essential (primary) hypertension; E78.00 Pure hypercholesterolemia, unspecified; I25.10 Atherosclerotic heart disease of native coronary artery without angina pectoris; Z79.02 Long term (current) use of antithrombotics/antiplatelets; Z87.891 Personal history of nicotine dependence; Z90.710 Acquired absence of both cervix and uterus; Z95.5 Presence of coronary angioplasty implant and graft; Z82.49 Family history of ischemic heart disease and other diseases of the circulatory system; Z79.84 Long term (current) use of oral hypoglycemic drugs
CPT/HCPCS: 37215; 76937; 82962; 85025; 85347; 94668; 94762; 97802; 99252; A4648; C1725; C1769; C1876; C1884; C1894; Q9967; A4216; G0463; J2405

== ENCOUNTER → 2024-07-04 | Outpatient (CLI) | payer MEDICARE, SELFPAY ==
[2024-07-04 16:15] LABS: Absolute Lymphocyte Count 0.91 X10^3/uL (0.83-4.51); Absolute Neutrophil Count 7.8 X10^3/uL (2.0-7.7); Basophil# 0.03 X10^3/uL; Basophil% 0.3 % (0-1); Eosinophil# 0.28 X10^3/uL; Eosinophils% 2.9 % (0-5); Hematocrit 32.5 % (37-47); Hemoglobin 10.9 g/dL (12.0-15.0); Lymphocyte # 0.91 X10^3/ul (0.83-4.51); Lymphocyte % 9.3 % (19-41); Mean Corp Hgb Conc 33.5 g/dL (32-36); Mean Corpuscular Hgb 30.6 pg (27.0-32.0); Mean Corpuscular Volume 91.3 fL (81-99); Mean Platelet Vol. 12.1 fl (6.2-12.0); Monocyte# 0.71 X10^3/uL; Monocyte% 7.3 % (0-10); NRBC Flagged by Analyzer 0 % (0-5); Neutrophil # 7.78 X10^3/uL (2.7-7.7); Neutrophil % 79.8 % (47-70); Platelet Count 169 K/mm3 (150-450); RBC Distribution Width CV 14.7 % (11.6-14.6); RBC Distribution Width SD 49.7 fl (35.1-43.9); Red Blood Count 3.56 M/mm3 (4.2-5.4); White Blood Count 9.8 K/mm3 (4.4-11.0)
[2024-07-04 16:54] LABS: Anion Gap 12 (5-15); BUN 32 mg/dL (4-19); BUN/Creat Ratio 19.8 RATIO (10-20); Calcium,Total 9.3 mg/dL (7.6-11.0); Carbon Dioxide 23.4 mmol/L (21.0-32.0); Chloride 107 mmol/L (98-108); Creatinine, Serum 1.64 mg/dL (0.70-1.20); EST Glomerular Filtration Rate 33 (>60); Glucose 183 mg/dL (70-99); Potassium 4.6 mmol/L (3.3-5.1); Sodium Level 142 mmol/L (133-145)
== END | disposition home or self-care (01) ==
LOC: LAB 15:01
PROVIDERS: PCP Internal Medicine; Referring Provider Nurse Practitioner Gerontology; Visit Provider Nurse Practitioner Gerontology
DX: R53.83 Other fatigue (principal)
CPT/HCPCS: 36415; 80048; 85025

== ENCOUNTER → 2025-01-24 | Outpatient (CLI) | payer MEDICARE, SELFPAY | END | disposition home or self-care (01) | LOC: PSN 10:45 | PROVIDERS: PCP Internal Medicine; Referring Provider Nurse Practitioner Gerontology; Visit Provider Nurse Practitioner Gerontology | DX: R06.09 Other forms of dyspnea (principal) | CPT/HCPCS: 94060; 94726; 94729 ==